=== PATIENT | male | born 1945 | race Caucasian/White ===

== ENCOUNTER → 2016-08-08 | Outpatient (CLI) | payer MEDICARE, OTHER | LOC: LAB.O 15:02 | PROVIDERS: ATTEND Nurse Practitioner Family | DX: R10.9 Unspecified abdominal pain (principal) ==

== ENCOUNTER → 2016-08-09 | Outpatient (CLI) | payer MEDICARE, OTHER ==
--- NOTE | 2016-08-09 10:34 | CT ---
EXAM DESCRIPTION: Abdomen and pelvis CT. CLINICAL HISTORY: Several days of abdominal pain COMPARISON: None. TECHNIQUE: A volumetric CT with oral and IV contrast was obtained during the portal venous and delayed phases. Images are displayed in multiplanar reconstructions. FINDINGS: There is fatty infiltration of the liver. The spleen is unremarkable. Bilateral adrenal glands are unremarkable. Bilateral kidneys enhance symmetrically. No evidence of obstruction or renal stone. There are a few cysts noted. There is a hyperdense hemorrhagic cyst noted along the robotics technician margin of the left mid pole of kidney. Its pre contrast density is 47, its post-contrast density is 56. This is compatible with a nonenhancing hemorrhagic cyst. Gallbladder is present. The pancreas is unremarkable. Small bowel is unremarkable. No inflammatory changes about the colon. No definitive diverticulosis. Small bowel is unremarkable IMPRESSION: Today's exam demonstrates no findings to account for patient's abdominal pain. No inflammatory changes within the abdomen or pelvis on today's study. There is fatty infiltration of the liver. Small bilateral renal cysts. There is a hemorrhagic intense left mid pole renal cyst. Electronically signed by: Scot Theodore MD 08/09/2016 10:33
== END ==
LOC: CT 08:22
PROVIDERS: ATTEND Nurse Practitioner Family
DX: R10.9 Unspecified abdominal pain (principal); N28.1 Cyst of kidney, acquired

== ENCOUNTER → 2016-08-23 | Outpatient (CLI) | payer MEDICARE, OTHER ==
--- NOTE | 2016-09-11 23:56 | CT ---
EXAM: CT head without contrast. INDICATION: Headache. TECHNIQUE: Contiguous axial CT images of the brain.Intravenous contrast: Absent.DLP 773 mGy-cm. COMPARISON: None. FINDINGS: Subcutaneous: Unremarkable. No acute intracranial hemorrhage. There is mild diffuse cerebral atrophy with mild periventricular deep white matter chronic microvascular changes.No midline shift.No mass effect. Ventricles: No hydrocephalus. Gonzalez-white differentiation preserved. Paranasal sinuses/mastoid air cells: Changes of a left mastoidectomy. Bones/orbits: Visualized portions are unremarkable. IMPRESSION: 1. No CT evidence of acute intracranial hemorrhage. Electronically signed by: Saul Persaud MD 08/24/2016 6:52 AM EVIDENCE CUSTODIAN
== END | disposition home or self-care (01) ==
LOC: RAD 14:32
PROVIDERS: ATTEND Nurse Practitioner Family
DX: R20.2 Paresthesia of skin (principal); I63.9 Cerebral infarction, unspecified

== ENCOUNTER 2016-10-07 10:02 | Emergency (ER) | payer MEDICARE, OTHER ==
[2016-10-07] MEDS ORDERED: SODIUM CHLORIDE 0.45% 1000ML 1,000 ML IVS ONE (10:21)
[2016-10-07 10:24] VITALS: TEMP 96.9
--- NOTE | 2016-10-07 10:28 | ED.PDOC ---
History of Present Illness - General Chief Complaint: Diabetic Complaint Stated Complaint: hyperglycemia Time Seen by Provider: 10/07/16 10:13 Source: patient, RN notes reviewed, Vital Signs reviewed, family Exam Limitations: no limitations - History of Present Illness Initial Comments: Patient c/o generalized GARCIA 5/10 and not being able to control hiss blood sugar. It was 225 this morning. Normally gets a GARCIA when is BS is low. He thinks the GARCIA is related to allergies when have been acting up over the past 3 days. No visual changes, + nausea, no weakness. Face is tingly which also frequently occurs when his blood sugar is off. + SOB, no chest pain. Has been alternating diarrhea and constipation off and on for a while. Timing/Duration: getting worse - over past 3 days Severity: moderate Improving Factors: nothing Worsening Factors: nothing Associated Symptoms: headaches, nausea/vomiting, shortness of breath Allergies/Adverse Reactions: Allergies Ibuprofen Allergy (Mild, Verified 06/16/14 13:41) Home Medications: Ambulatory Orders Finasteride 5 mg PO DAILY 01/21/14 Flunisolide (Nasal) [Flunisolide] 1 spray NA BID 01/21/14 Gabapentin [Neurontin] 1,200 mg PO TID 01/21/14 Glipizide 5 mg PO BIDAC 01/21/14 Metformin HCl 1,000 mg PO BIDAC 01/21/14 Metoprolol Tartrate 50 mg PO BID 01/21/14 Sertraline HCl 100 mg PO BID 01/21/14 Simvastatin [Zocor] 40 mg PO BEDTIME 01/21/14 Tamsulosin HCl 0.4 mg PO BEDTIME 01/21/14 Cetirizine HCl 10 mg PO DAILY 02/04/15 Review of Systems - Review of Systems Constitutional: States: no symptoms reported. Denies: chills, diaphoresis, fever, malaise, weakness EENTM: States: no symptoms reported. Denies: blurred vision, double vision Respiratory: States: short of breath. Denies: cough, orthopnea, stridor, wheezing Cardiology: States: no symptoms reported. Denies: chest pain, edema, palpitations, syncope Gastrointestinal/Abdominal: States: see HPI, constipation, diarrhea, nausea. Denies: abdominal pain, vomiting Genitourinary: States: no symptoms reported Musculoskeletal: States: no symptoms reported Skin: States: no symptoms reported, see HPI Neurological: States: headache, paresthesia, tingling - of whole face. Denies: numbness Endocrine: States: no symptoms reported Hematologic/Lymphatic: States: no symptoms reported Past Medical History (General) - Patient Medical History Hx Stroke: No Hx Cardiac Disorders: Yes - palpitations Hx Congestive Heart Failure: No Hx Hypertension: Yes Hx Diabetes: Yes Hx Gastroesophageal Reflux: Yes Hx Cancer: No Hx Hepatitis C: No Hx MRSA: No - Vaccination History Hx Tetanus, Diphtheria Vaccination: No Hx Influenza Vaccination: Yes Hx Pneumococcal Vaccination: No - Social History Hx Tobacco Use: Yes Hx Chewing Tobacco Use: No Hx Alcohol Use: No Hx Substance Use: No Hx Substance Use Treatment: No Hx Depression: No Hx Physical Abuse: No Hx Emotional Abuse: No Hx Suspected Abuse: No - Female History Patient : No Family Medical History - Family History Mother Family History: Unknown Living Status: Cause of : uterine cancer Father Living Status: Cause of : hardening of arteries Physical Exam - Physical Exam General Appearance: Alert, Comfortable, No apparent distress, Well Developed, Well Groomed, Well Hydrated, Well Nourished Eye Exam: bilateral normal Ears, Nose, Throat: hearing grossly normal, normal ENT inspection, normal pharynx Neck: non-tender, full range of motion, supple, normal inspection Respiratory: chest non-tender, lungs clear, normal breath sounds, no respiratory distress, no accessory muscle use Cardiovascular/Chest: normal peripheral pulses, regular rate, rhythm, no edema, no gallop, no JVD Peripheral Pulses: posterior tibialis,right: 2+, posterior tibialis,left: 2+ Gastrointestinal/Abdominal: normal bowel sounds, soft, no organomegaly, no pulsatile mass, tenderness - generalized, mild Extremity: normal range of motion, non-tender, normal inspection, no pedal edema , no calf tenderness 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 10/07/16 11:14 Patient told nurse he was feeling better. He told me the morphine made his head hurt more and he feels like his blood sugar is going up because his face is starting to feel funny again. Still having nausea. Would like to get his blood sugar rechecked so will order. 10/07/16 11:41 Patient continues to report his GARCIA is unchanged and that his face is puffing up. He is sure his blood sugar is going up despite me telling him is results here have been 162,197 & 173. Will give a small dose of IV insulin. Will also get EKG and repeat cardiac enzymes in 2 hours due to elevated CK-MB. 10/07/16 12:21 Patient still reporting he is not feeling well. He still has a GARCIA but feels it is allergy. He has not eaten or taken his medications today. Will give Solu- medrol 80mg IV, Diabetic meal and recheck cardiac enzymes in ~45 minutes. He is agreeable with plan. 10/07/16 13:16 HE reports he is feeling better after the steroids and eating. Will recheck cardiac enzymes and blood glucose. 10/07/16 14:05 Second set of cardiac enzymes still show elevated but improved CK-MB but troponin continues to be negative/normal. Will d/c home and have him follow up with PCP and Fashion Model. - EKG/XRAY/CT EKG: Sinus, no ST T wave changes Comments: Nl with rate [address] Ordered: Yes - Head: Normal Departure - Departure Clinical Impression: Diabetes type 2, uncontrolled, Elevated CPK Headache Qualifiers: Headache type: unspecified Headache chronicity pattern: acute headache Intractability: not intractable Qualifier Code: (R51) Headache Time of Disposition: 14:09 Disposition: Discharge to Home or Self Care Condition: Good Departure Forms: ED Discharge - Pt. Copy, Patient Portal Self Enrollment Instructions: Type 2 Diabetes, DI for Sinus Headache Diet: diabetic diet Activity: increase activity as tolerated Referrals: XAVI CASTILLO IV, FNP [Primary Care Provider] - 1-2 Weeks JULIANE PITTMAN MD [Consulting Staff] - 1-2 Weeks Home Medications: Ambulatory Orders Finasteride 5 mg PO DAILY 01/21/14 Flunisolide (Nasal) [Flunisolide] 1 spray NA BID 01/21/14 Gabapentin [Neurontin] 1,200 mg PO TID 01/21/14 Glipizide 5 mg PO BIDAC 01/21/14 Metformin HCl 1,000 mg PO BIDAC 01/21/14 Metoprolol Tartrate 50 mg PO BID 01/21/14 Sertraline HCl 100 mg PO BID 01/21/14 Simvastatin [Zocor] 40 mg PO BEDTIME 01/21/14 Tamsulosin HCl 0.4 mg PO BEDTIME 01/21/14 Cetirizine HCl 10 mg PO DAILY 02/04/15 Additional Instructions: Add OTC Sudafed to help with allergies/sinus headache.
[2016-10-07] MEDS ORDERED: MORPHINE SULFATE INJ 10 MG/ML VIAL IV ONE (10:32)
[2016-10-07] MEDS ORDERED: ONDANSETRON INJ 4 MG/2 ML VIAL IV ONE (10:32)
--- NOTE | 2016-10-07 11:07 | CT ---
EXAM DESCRIPTION: CT head without contrast. CLINICAL HISTORY: Generalized headache COMPARISON: CT head 08/23/2016 TECHNIQUE: Multiple axial images of the head without contrast. FINDINGS: There is no CT evidence of intracranial hemorrhage, mass effect, or acute cortical infarction. Mild generalized volume loss and mild supratentorial white matter hypodensities are present. There are no abnormal extra-axial fluid collections. Calcific plaque in the visualized arteries. There is no acute calvarial defect. Left mastoidectomy changes. The visualized paranasal sinuses are clear. IMPRESSION: 1. No CT evidence of an acute intracranial abnormality. If there is concern for an acute or subacute infarct, consider follow-up MRI. 2. Senescent changes. Electronically signed by: Te Osorio MD 10/07/2016 11:06 AM CDT
[2016-10-07] MEDS ORDERED: INSULIN, REG.(HUMAN) 100 U/ML VIAL IV ONE (11:40)
[2016-10-07] MEDS ORDERED: methylPREDNISolone SODIUM SUC 125 MG/2 ML VIAL IV ONE (12:20)
[2016-10-07 12:53] VITALS: O2SAT 95
[2016-10-07 13:25] VITALS: BP 122/49
== END 2016-10-07 14:20 | disposition home or self-care (01) ==
LOC: ER 10:02
DX: E11.65 Type 2 diabetes mellitus with hyperglycemia (principal); R51 Headache; Z87.891 Personal history of nicotine dependence; R00.2 Palpitations; K21.9 Gastro-esophageal reflux disease without esophagitis; Z79.899 Other long term (current) drug therapy; Z88.8 Allergy status to other drugs, medicaments and biological substances
CPT/HCPCS: 36415; 36416; 70450; 80053; 82550; 82553; 82948; 83735; 84484; 85025; 85610; 85730; 93005; J2270; J2405; J2930; J7799

== ENCOUNTER 2016-10-10 13:07 | Emergency (ER) | payer MEDICARE, OTHER ==
[2016-10-10 13:21] VITALS: TEMP 97.4
[2016-10-10] MEDS ORDERED: SODIUM CHLORIDE 0.9% 1000ML 1,000 ML IVS ONE (13:57)
--- NOTE | 2016-10-10 14:26 | ED.PDOC ---
History of Present Illness - General Chief Complaint: Diabetic Complaint Stated Complaint: blood sugars all over the place Time Seen by Provider: 10/10/16 13:18 Source: patient, RN notes reviewed, Vital Signs reviewed Exam Limitations: no limitations - History of Present Illness Initial Comments: Patient here with c/o of diarrhea, abd pain, nausea and anorexia for the past several days. He was seen here 3 days ago regarding his blood sugar with was normal at that time. HE reports he was recently treated for a UTI with Cipro and is not sure the infection has cleared. He would like that checked. Timing/Duration: other - 3 days, symptoms that brought him in on Monday are resolved, no more face tingling. Severity: moderate Improving Factors: nothing Worsening Factors: nothing Associated Symptoms: loss of appetite, nausea/vomiting Allergies/Adverse Reactions: Allergies Ibuprofen Allergy (Mild, Verified 10/10/16 13:17) Home Medications: Ambulatory Orders Finasteride 5 mg PO DAILY 01/21/14 Flunisolide (Nasal) [Flunisolide] 1 spray NA BID 01/21/14 Gabapentin [Neurontin] 1,200 mg PO TID 01/21/14 Glipizide 5 mg PO BIDAC 01/21/14 Metformin HCl 1,000 mg PO BIDAC 01/21/14 Metoprolol Tartrate 50 mg PO BID 01/21/14 Sertraline HCl 100 mg PO BID 01/21/14 Simvastatin [Zocor] 40 mg PO BEDTIME 01/21/14 Tamsulosin HCl 0.4 mg PO BEDTIME 01/21/14 Cetirizine HCl 10 mg PO DAILY 02/04/15 Clonazepam 1 mg PO BID #14 tab 10/10/16 Ondansetron [Zofran Odt] 4 mg PO Q6HRS PRN #20 tab 10/10/16 Review of Systems - Review of Systems Constitutional: States: malaise. Denies: chills, diaphoresis, fever EENTM: States: no symptoms reported Respiratory: States: no symptoms reported Cardiology: States: no symptoms reported Gastrointestinal/Abdominal: States: see HPI, abdominal pain, diarrhea, nausea Musculoskeletal: States: see HPI - Recent UTI Skin: States: no symptoms reported, see HPI Neurological: States: weakness Endocrine: States: no symptoms reported Hematologic/Lymphatic: States: no symptoms reported Past Medical History (General) - Patient Medical History Hx Seizures: No Hx Stroke: No Hx Dementia: No Hx Asthma: Yes Hx of COPD: No Hx Cardiac Disorders: Yes Hx Congestive Heart Failure: No Hx Pacemaker: No Hx Hypertension: Yes Hx Thyroid Disease: No Hx Diabetes: No Hx Gastroesophageal Reflux: Yes Hx Renal Disease: No Hx Cancer: No Hx of HIV: No Hx Hepatitis C: No Hx MRSA: No - Vaccination History Hx Tetanus, Diphtheria Vaccination: Yes Hx Influenza Vaccination: Yes Hx Pneumococcal Vaccination: Yes Immunizations Up to Date: Yes - Social History Hx Tobacco Use: No Hx Chewing Tobacco Use: No Hx Alcohol Use: No Hx Substance Use: No Hx Substance Use Treatment: No Hx Depression: No Feels Threatened In Home Enviroment: No Feels Threatened In a Relationship: No Hx Physical Abuse: No Hx Emotional Abuse: No Hx Suspected Abuse: No - Female History Patient : No Family Medical History - Family History Mother Family History: Unknown Living Status: Cause of : uterine cancer Father Living Status: Cause of : hardening of arteries Physical Exam - Physical Exam General Appearance: Alert, Comfortable, No apparent distress, Obese, Well Developed, Well Groomed, Well Hydrated, Well Nourished Neck: non-tender, full range of motion, supple, normal inspection Respiratory: chest non-tender, lungs clear, normal breath sounds, no respiratory distress, no accessory muscle use Cardiovascular/Chest: normal peripheral pulses, regular rate, rhythm, no edema, no gallop, no JVD, no murmur Peripheral Pulses: posterior tibialis,right: 1+, posterior tibialis,left: 1+ Gastrointestinal/Abdominal: normal bowel sounds, soft, guarding - Epigastric and RUQ, tenderness - RUQ/epigastric Extremity: normal range of motion, non-tender, normal inspection Neurologic: no motor/sensory deficits, alert, normal mood/affect, oriented x 3 Skin Exam: normal color, warm/dry Lymphatic: no adenopathy Progress - Progress Progress: 10/10/16 15:01 Labs so far are normal. Awaiting urine sample. If urine is normal will get CT scan of Abd/pelvis 10/10/16 16:59 Discussed normal results with patient. He does now report that someone took his Clonazepam about 2 weeks ago along with his pain medications. He is wondering if this could be what is making him feel so bad. Advised that is possible. Will give 1 week supply of Clonazepam. - EKG/XRAY/CT CT Ordered: Yes - Abd/Pelvis: No acute process, unchanged from 07/2016 CT Interpretation Call Back: No Departure - Departure Clinical Impression: Diarrhea Abdominal pain Qualifiers: Abdominal location: generalized Qualifier Code: (R10.84) Generalized abdominal pain Time of Disposition: 17:02 Disposition: Discharge to Home or Self Care Condition: Good Departure Forms: ED Discharge - Pt. Copy, Patient Portal Self Enrollment Instructions: Diarrhea, DI for Acute Abdomen Diet: resume usual diet Activity: increase activity as tolerated Referrals: XAVI CASTILLO IV TALENT ACQUISITION MANAGER [Primary Care Provider] - 1-5 Days Prescriptions: Ondansetron [Zofran Odt] 4 mg PO Q6HRS PRN #20 tab PRN Reason: Nausea/Vomiting Clonazepam 1 mg PO BID #14 tab Home Medications: Ambulatory Orders Finasteride 5 mg PO DAILY 01/21/14 Flunisolide (Nasal) [Flunisolide] 1 spray NA BID 01/21/14 Gabapentin [Neurontin] 1,200 mg PO TID 01/21/14 Glipizide 5 mg PO BIDAC 01/21/14 Metformin HCl 1,000 mg PO BIDAC 01/21/14 Metoprolol Tartrate 50 mg PO BID 01/21/14 Sertraline HCl 100 mg PO BID 01/21/14 Simvastatin [Zocor] 40 mg PO BEDTIME 01/21/14 Tamsulosin HCl 0.4 mg PO BEDTIME 01/21/14 Cetirizine HCl 10 mg PO DAILY 02/04/15 Clonazepam 1 mg PO BID #14 tab 10/10/16 Ondansetron [Zofran Odt] 4 mg PO Q6HRS PRN #20 tab 10/10/16
--- NOTE | 2016-10-10 16:53 | CT ---
EXAM DESCRIPTION: Abdomen and pelvis CT. CLINICAL HISTORY: Several days of abdominal pain COMPARISON: None. TECHNIQUE: A Volumetric CT with IV contrast was obtained. Images are displayed in multiplanar reconstructions. FINDINGS: Fatty infiltration of the nonenlarged liver again noted. The spleen is unremarkable. Bilateral adrenal glands are unremarkable. Bilateral kidneys enhance symmetrically. No evidence of obstruction or renal stone. There are a few cysts noted. Gallbladder is present. The pancreas is unremarkable. Small bowel is unremarkable. No inflammatory changes about the colon. No definitive diverticulosis. Small bowel is unremarkable Bilateral fat-containing inguinal hernias without associated fat stranding. IMPRESSION: Today's exam is essentially stable when compared to July 2016. No definitive findings to account for patient's abdominal pain. There remains degenerative change of the lumbar spine, atherosclerosis of a nonaneurysmal abdominal aorta and a few bilateral renal cysts. 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 Electronically signed by: Scot Theodore MD 10/10/2016 4:52 PM CDT
[2016-10-10 17:15] VITALS: BP 160/76; O2SAT 96
== END 2016-10-10 17:17 | disposition home or self-care (01) ==
LOC: ER 13:07
DX: R19.7 Diarrhea, unspecified (principal); R10.84 Generalized abdominal pain; J45.909 Unspecified asthma, uncomplicated; I10 Essential (primary) hypertension; K21.9 Gastro-esophageal reflux disease without esophagitis; Z79.899 Other long term (current) drug therapy
CPT/HCPCS: 36415; 36416; 74177; 80053; 81001; 82150; 82948; 83690; 85025; J7030

== ENCOUNTER → 2016-10-19 | Outpatient (CLI) | payer MEDICARE, OTHER | END | disposition home or self-care (01) | LOC: GMAM 10:15 | PROVIDERS: ATTEND Family Medicine | DX: Z12.5 Encounter for screening for malignant neoplasm of prostate (principal); R97.20 Elevated prostate specific antigen [PSA]; I10 Essential (primary) hypertension; E11.9 Type 2 diabetes mellitus without complications ==

== ENCOUNTER → 2016-11-15 | Outpatient (CLI) | payer MEDICARE, OTHER | LOC: SL 21:30 | PROVIDERS: ATTEND Family Medicine | DX: G47.33 Obstructive sleep apnea (adult) (pediatric) (principal); G47.00 Insomnia, unspecified; R53.82 Chronic fatigue, unspecified; R06.83 Snoring; I25.89 Other forms of chronic ischemic heart disease; J98.8 Other specified respiratory disorders; I50.9 Heart failure, unspecified ==

== ENCOUNTER 2017-02-09 15:10 | Emergency (ER) | payer MEDICARE, OTHER ==
--- NOTE | 2017-02-09 15:28 | ED.PDOC ---
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 Denies weakness,slurred speech,chest pain,headaches. Timing/Prior Episodes: remote history Precipitating Factors: lightheadedness Context: standing Loss of Consciousness: unsure Current Symptoms: back to normal Allergies/Adverse Reactions: Allergies Ibuprofen Allergy (Mild, Verified 10/10/16 13:17) Home Medications: Ambulatory Orders RX: Finasteride 5 mg PO DAILY 01/21/14 RX: Flunisolide (Nasal) [Flunisolide] 1 spray NA BID 01/21/14 RX: Gabapentin [Neurontin] 1,200 mg PO TID 01/21/14 RX: Glipizide 5 mg PO BIDAC 01/21/14 RX: Metformin HCl 1,000 mg PO BIDAC 01/21/14 RX: Metoprolol Tartrate 50 mg PO BID 01/21/14 RX: Sertraline HCl 100 mg PO BID 01/21/14 RX: Simvastatin [Zocor] 40 mg PO BEDTIME 01/21/14 RX: Tamsulosin HCl 0.4 mg PO BEDTIME 01/21/14 RX: Cetirizine HCl 10 mg PO DAILY 02/04/15 Ondansetron [Zofran Odt] 4 mg PO Q6HRS PRN #20 tab 10/10/16 RX: Clonazepam 1 mg PO BID #14 tab 10/10/16 Sulfa/Trimeth 800/160 (Ds) Tab [Bactrim DS Tab] 1 ea PO BID #20 tab 02/09/17 Review of Systems - Review of Systems Constitutional: States: no symptoms reported EENTM: States: see HPI, other - menieres disease Respiratory: States: no symptoms reported Cardiology: States: no symptoms reported Gastrointestinal/Abdominal: States: no symptoms reported Genitourinary: States: other - urinary retention self cath Musculoskeletal: States: no symptoms reported Skin: States: no symptoms reported Neurological: States: see HPI Endocrine: States: no symptoms reported Hematologic/Lymphatic: States: no symptoms reported Past Medical History (General) - Patient Medical History Hx Seizures: No Hx Stroke: No Hx Dementia: No Hx Asthma: Yes Hx of COPD: No Hx Cardiac Disorders: Yes Hx Congestive Heart Failure: No Hx Pacemaker: No Hx Hypertension: Yes Hx Thyroid Disease: No Hx Diabetes: Yes Hx Gastroesophageal Reflux: Yes Hx Renal Disease: No Hx Cancer: No Hx of HIV: No Hx Hepatitis C: No Hx MRSA: No Hx Other PMH: Yes - menieres,prostate,spondylolisthesis/spondylolysis Surgical History: other - pain pump - Vaccination History Hx Tetanus, Diphtheria Vaccination: Yes Hx Influenza Vaccination: Yes Hx Pneumococcal Vaccination: Yes - Social History Hx Tobacco Use: No Hx Chewing Tobacco Use: No Hx Alcohol Use: No Hx Substance Use: No Hx Substance Use Treatment: No Hx Depression: No Hx Physical Abuse: No Hx Emotional Abuse: No Hx Suspected Abuse: No - Activities of Daily Living Patient Lives Alone: No - grandchild Grooming Ability: Independent Eating (Feeding) Ability: Independent Toileting Ability: Independent - Female History Patient : No Physical Exam - Physical Exam General Appearance: Alert, No apparent distress, Well Hydrated, Well Nourished, Other - speech fluent Eyes, Ears, Nose, Throat Exam: PERRL/EOMI, normal ENT inspection, TMs normal, pharynx normal Neck: non-tender, full range of motion, supple Cardiovascular/Respiratory: regular rate, rhythm, no M/R/G, normal peripheral pulses, no JVD Gastrointestinal/Abdominal: normal bowel sounds, soft, no organomegaly Back Exam: normal inspection, no CVA tenderness, no vertebral tenderness Extremity: normal range of motion, non-tender, normal inspection Mental Status: alert, oriented x 3 cutter wet machine Exam: normal hearing, normal speech, PERRL Coordination/Gait: normal finger to nose, normal gait, negative Romberg's sign Motor/Sensory: no motor deficit, no sensory deficit, no pronator drift Skin Exam: normal color, warm/dry Lymphatic: no adenopathy Progress - Progress Progress: 02/09/17 16:31 Vital Signs - 8 hr 02/09/17 02/09/17 15:20 16:18 Temperature 97.6 F Pulse Rate [ 61 57 L LEFT BRACHIAL] Respiratory 20 16 Rate Blood Pressure 140/65 110/56 [LEFT BRACHIAL] O2 Sat by Pulse 97 96 Oximetry - EKG/XRAY/CT EKG: Sinus, no ST T wave changes Comments: heart rate 58 XRAY: chest - tortous aorta,cardiomegaly CT Ordered: Yes - no acute intracranial abnormality Departure - Departure Clinical Impression: Syncope Qualifiers: Syncope type: heat syncope Encounter type: initial encounter Qualified Code(s) : T67.1XXA - Heat syncope, initial encounter Urinary tract infection Qualifiers: Urinary tract infection type: site unspecified Hematuria presence: without hematuria Qualified Code(s): N39.0 - Urinary tract infection, site not specified Time of Disposition: 18:59 Disposition: Discharge to Home or Self Care Condition: Fair Departure Forms: ED Discharge - Pt. Copy, Patient Portal Self Enrollment Instructions: DI for Syncope in Adults (Fainting) Referrals: XAVI CASTILLO IV GEAR REPAIR SUPERVISOR [Primary Care Provider] - 1-2 Weeks Prescriptions: Sulfa/Trimeth 800/160 (Ds) Tab [Bactrim DS Tab] 1 ea PO BID #20 tab Home Medications: Ambulatory Orders RX: Finasteride 5 mg PO DAILY 01/21/14 RX: Flunisolide (Nasal) [Flunisolide] 1 spray NA BID 01/21/14 RX: Gabapentin [Neurontin] 1,200 mg PO TID 01/21/14 RX: Glipizide 5 mg PO BIDAC 01/21/14 RX: Metformin HCl 1,000 mg PO BIDAC 01/21/14 RX: Metoprolol Tartrate 50 mg PO BID 01/21/14 RX: Sertraline HCl 100 mg PO BID 01/21/14 RX: Simvastatin [Zocor] 40 mg PO BEDTIME 01/21/14 RX: Tamsulosin HCl 0.4 mg PO BEDTIME 01/21/14 RX: Cetirizine HCl 10 mg PO DAILY 02/04/15 Ondansetron [Zofran Odt] 4 mg PO Q6HRS PRN #20 tab 10/10/16 RX: Clonazepam 1 mg PO BID #14 tab 10/10/16 Sulfa/Trimeth 800/160 (Ds) Tab [Bactrim DS Tab] 1 ea PO BID #20 tab 02/09/17 Additional Instructions: RETURN TO EMERGENCY ROOM NEEDED Follow up with primary md 02/13/2017
[2017-02-09 15:34] VITALS: TEMP 97.6
[2017-02-09] MEDS ORDERED: SODIUM CHLORIDE 0.9% 500ML 500 ML IVS ONE (15:44)
--- NOTE | 2017-02-09 15:51 | RAD ---
EXAM DESCRIPTION: Chest,1 View CLINICAL HISTORY: 72 years Male, syncope COMPARISON: 02/14/2014 IMPRESSION: The heart is enlarged, without failure. The thoracic aorta is tortuous. Left basilar mild subsegmental atelectasis or scarring. No confluent airspace consolidation, pleural effusion, or pneumothorax. No acute osseous abnormality. Electronically signed by: Te Osorio MD 02/09/2017 3:50 PM CDT
--- NOTE | 2017-02-09 15:59 | CT ---
EXAM DESCRIPTION: CT-Head. CT head without contrast. CLINICAL HISTORY: syncope COMPARISON: 10/07/2016 TECHNIQUE: Multiple axial images of the head without contrast. This exam was performed according to our departmental dose-optimization program, which includes automated exposure control, adjustment of the mA and/or kV according to patient size and/or use of iterative reconstruction technique. FINDINGS: There is no CT evidence of intracranial hemorrhage, mass effect, or large territory infarction. Moderate generalized volume loss is present. Mild to moderate patchy supratentorial white matter hypodensities. Mineralization in both basal ganglia. There are no abnormal extra-axial fluid collections. Calcific plaque in the visualized arteries. There is no acute calvarial defect. Prior left mastoidectomy again demonstrated. Mild mucosal thickening in the ethmoid sinuses. The right mastoid air cells and remainder of the paranasal sinuses are clear. IMPRESSION: 1. No CT evidence of an acute intracranial abnormality. If there is concern for an acute or subacute infarct, consider follow-up MRI. 2. Senescent changes. Electronically signed by: Te Osorio MD 02/09/2017 3:57 PM CDT
[2017-02-09 16:29] VITALS: O2SAT 96
[2017-02-09] MEDS ORDERED: cefTRIAXone SODIUM 1 GM in SODIUM CHL 0.9% 50ML MIN-BAG+ 50 ML IVPB ONE (18:06)
[2017-02-09] MEDS ORDERED: SODIUM CHL 0.9% 50ML MIN-BAG+ 50 ML IVPB ONE (18:48)
[2017-02-09] MEDS ORDERED: cefTRIAXone SODIUM 1 GM VIAL ONE (18:48)
[2017-02-09 19:17] VITALS: BP 150/106
== END 2017-02-09 19:45 | disposition home or self-care (01) ==
LOC: ER 15:10
DX: N39.0 Urinary tract infection, site not specified (principal); T67.1XXA Heat syncope, initial encounter; I10 Essential (primary) hypertension; E11.9 Type 2 diabetes mellitus without complications; K21.9 Gastro-esophageal reflux disease without esophagitis; Z79.899 Other long term (current) drug therapy; Z88.6 Allergy status to analgesic agent; X30.XXXA Exposure to excessive natural heat, initial encounter; Y92.79 Other farm location as the place of occurrence of the external cause
CPT/HCPCS: 36415; 36416; 70450; 71010; 80048; 80076; 80307; 81001; 82550; 82553; 82948; 84484; 85025; 85379; 85610; 85730; 87086; 93005; J0696; J7040; J7050

== ENCOUNTER → 2017-02-21 | Outpatient (CLI) | payer MEDICARE, OTHER | END | disposition home or self-care (01) | LOC: GMAM 11:14 | PROVIDERS: ATTEND Family Medicine | DX: M25.50 Pain in unspecified joint (principal); I10 Essential (primary) hypertension; R53.83 Other fatigue ==

== ENCOUNTER → 2017-04-18 | Outpatient (CLI) | payer MEDICARE, OTHER | END | disposition home or self-care (01) | LOC: GMAM 16:51 | PROVIDERS: ATTEND Family Medicine | DX: R30.0 Dysuria (principal) ==

== ENCOUNTER 2017-05-10 16:59 | Emergency (ER) | payer MEDICARE, OTHER ==
[2017-05-10 17:18] VITALS: TEMP 97.8
[2017-05-10] MEDS ORDERED: TAMSULOSIN 0.4 MG CAP PO ONE (17:45)
--- NOTE | 2017-05-10 19:14 | ED.PDOC ---
History of Present Illness - General Chief Complaint: Problem Stated Complaint: pain with urination Time Seen by Provider: 05/10/17 17:44 Source: patient Exam Limitations: no limitations - History of Present Illness Initial Comments: Dani Fletcher 72 y/o male stated that he had painful urination since yesterday and got worse today. No fever ,no chills.Stated self cath himself using new disposable cath whenever he does it. Timing/Duration: yesterday Quality: burning, intermittent Radiation: suprapubic Activites at Onset: none Prior abdominal problems: similar symptoms Sexual intercourse history: not active Worsening Factors: other - urination Associated Symptoms: urinary frequency Allergies/Adverse Reactions: Allergies Ibuprofen Allergy (Mild, Verified 05/10/17 17:18) Home Medications: Ambulatory Orders Finasteride 5 mg PO DAILY 01/21/14 Flunisolide (Nasal) [Flunisolide] 1 spray NA BID 01/21/14 Gabapentin [Neurontin] 1,200 mg PO TID 01/21/14 Glipizide 5 mg PO BIDAC 01/21/14 Metformin HCl 1,000 mg PO BIDAC 01/21/14 Metoprolol Tartrate 50 mg PO BID 01/21/14 Sertraline HCl 100 mg PO BID 01/21/14 Simvastatin [Zocor] 40 mg PO BEDTIME 01/21/14 Tamsulosin HCl 0.4 mg PO BEDTIME 01/21/14 Cetirizine HCl 10 mg PO DAILY 02/04/15 Clonazepam 1 mg PO BID #14 tab 10/10/16 Ondansetron [Zofran Odt] 4 mg PO Q6HRS PRN #20 tab 10/10/16 Sulfa/Trimeth 800/160 (Ds) Tab [Bactrim DS Tab] 1 ea PO BID #20 tab 02/09/17 Nitrofurantoin Monohydrate Mac [Macrobid] 100 mg PO BID #20 cap 05/10/17 Review of Systems - Review of Systems Constitutional: States: no symptoms reported EENTM: States: no symptoms reported Respiratory: States: no symptoms reported Cardiology: States: no symptoms reported Genitourinary: States: see HPI Musculoskeletal: States: no symptoms reported Past Medical History (General) - Patient Medical History Hx Seizures: No Hx Stroke: No Hx Dementia: No Hx Asthma: Yes Hx of COPD: No Hx Cardiac Disorders: Yes Hx Congestive Heart Failure: No Hx Pacemaker: No Hx Hypertension: Yes Hx Thyroid Disease: No Hx Diabetes: Yes Hx Gastroesophageal Reflux: Yes Hx Renal Disease: No Hx Cancer: No Hx of HIV: No Hx Hepatitis C: No Hx MRSA: No Hx Other PMH: Yes - chronic back pain,Menieres,prostate Surgical History: no surgical history, other - pain pump - Vaccination History Hx Tetanus, Diphtheria Vaccination: Yes Hx Influenza Vaccination: No Hx Pneumococcal Vaccination: Yes - Social History Hx Tobacco Use: No Hx Chewing Tobacco Use: No Hx Alcohol Use: No Hx Substance Use: No Hx Substance Use Treatment: No Hx Depression: No Hx Physical Abuse: No Hx Emotional Abuse: No Hx Suspected Abuse: No - Female History Patient : No Family Medical History - Family History Mother Family History: Unknown Living Status: Cause of : uterine cancer Father Living Status: Cause of : hardening of arteries Physical Exam - Physical Exam General Appearance: Alert, No apparent distress Eyes, Ears, Nose, Throat Exam: PERRL/EOMI, normal ENT inspection Neck: full range of motion, supple Cardiovascular/Respiratory: regular rate, rhythm, normal peripheral pulses, normal breath sounds Gastrointestinal/Abdominal: non tender, soft, no organomegaly Rectal Exam: normal rectal tone Male Genital Exam: normal prostate - non tender Back Exam: no vertebral tenderness Extremity: no pedal edema, no calf tenderness Progress - Progress Progress: 05/10/17 19:33 Laboratory Tests 05/10/17 05/10/17 05/10/17 17:55 17:55 17:55 WBC 8.0 RBC 4.32 L Hgb 11.4 L Hct 35.3 L MCV 81.6 MCH 26.3 L MCHC 32.4 L RDW 15.7 H Plt Count 206 MPV 7.7 Absolute Neuts (auto) 4.20 Absolute Lymphs (auto) 2.80 Absolute Monos (auto) 0.90 H Absolute Eos (auto) 0.10 Absolute Basos (auto) 0.00 Neutrophils % 52.4 Lymphocytes % 35.0 Monocytes % 10.7 H Eosinophils % 1.7 Basophils % 0.2 Sodium 136 Potassium 4.2 Chloride 100 L Carbon Dioxide 30 Anion Gap 10.2 L BUN 14 Creatinine 0.71 BUN/Creatinine Ratio 19.7 Random Glucose 113 H Serum Osmolality 273.2 L Calcium 9.1 Total Bilirubin 0.4 AST 24 ALT 21 Alkaline Phosphatase 69 Serum Total Protein 6.5 Albumin 3.8 Globulin 2.7 Albumin/Globulin Ratio 1.4 Urine Color Yellow Urine Appearance Sl cloudy Urine pH 6.0 Ur Specific [place] >= 1.030 Urine Protein >=300 H Urine Glucose (UA) Negative Urine Ketones Negative Urine Blood Large H Urine Nitrite Negative Urine Bilirubin Negative Urine Urobilinogen 0.2 Ur Leukocyte Esterase Trace H Urine RBC Tntc H Urine WBC 10-20 H Ur Epithelial Cells 0 Urine Bacteria 1+ Last Vital Signs Temp 97.8 F 05/10/17 17:07 Pulse 48 L 05/10/17 17:07 Resp 20 05/10/17 17:07 BP 147/70 05/10/17 17:07 Pulse Ox 97 05/10/17 17:07 Departure - Departure Clinical Impression: Urinary tract infection Qualifiers: Urinary tract infection type: site unspecified Hematuria presence: with hematuria Qualified Code(s): N39.0 - Urinary tract infection, site not specified Time of Disposition: 19:36 Disposition: Discharge to Home or Self Care Condition: Fair Departure Forms: ED Discharge - Pt. Copy, Patient Portal Self Enrollment Instructions: Bladder Infections Happen in Men Too, Bladder Infection ( Alternative Therapy) Referrals: Cesar Edwards MD [Primary Care Provider] - 1-2 Weeks Prescriptions: Nitrofurantoin Monohydrate Mac [Macrobid] 100 mg PO BID #20 cap Home Medications: Ambulatory Orders Finasteride 5 mg PO DAILY 01/21/14 Flunisolide (Nasal) [Flunisolide] 1 spray NA BID 01/21/14 Gabapentin [Neurontin] 1,200 mg PO TID 01/21/14 Glipizide 5 mg PO BIDAC 01/21/14 Metformin HCl 1,000 mg PO BIDAC 01/21/14 Metoprolol Tartrate 50 mg PO BID 01/21/14 Sertraline HCl 100 mg PO BID 01/21/14 Simvastatin [Zocor] 40 mg PO BEDTIME 01/21/14 Tamsulosin HCl 0.4 mg PO BEDTIME 01/21/14 Cetirizine HCl 10 mg PO DAILY 02/04/15 Clonazepam 1 mg PO BID #14 tab 10/10/16 Ondansetron [Zofran Odt] 4 mg PO Q6HRS PRN #20 tab 10/10/16 Sulfa/Trimeth 800/160 (Ds) Tab [Bactrim DS Tab] 1 ea PO BID #20 tab 02/09/17 Nitrofurantoin Monohydrate Mac [Macrobid] 100 mg PO BID #20 cap 05/10/17 Additional Instructions: Need to follow up with primary md in am call for appointment;Return to emergency room as needed
[2017-05-10] MEDS ORDERED: levoFLOXacin 500 MG TAB PO ONE (19:34)
[2017-05-10 19:48] VITALS: BP 135/74; O2SAT 98
== END 2017-05-10 19:48 | disposition home or self-care (01) ==
LOC: ER 16:59
DX: N39.0 Urinary tract infection, site not specified (principal); I10 Essential (primary) hypertension; E11.9 Type 2 diabetes mellitus without complications; G89.29 Other chronic pain; M54.9 Dorsalgia, unspecified; Z79.899 Other long term (current) drug therapy

== ENCOUNTER → 2017-05-17 | Outpatient (CLI) | payer MEDICARE, OTHER | LOC: GMAM 16:50 | PROVIDERS: ATTEND Family Medicine | DX: N40.1 Benign prostatic hyperplasia with lower urinary tract symptoms (principal) ==

== ENCOUNTER 2017-05-18 21:32 | Inpatient (IN) | payer MEDICARE, OTHER ==
--- NOTE | 2017-05-18 21:34 | HP ---
SUPERVISING PHYSICIAN: Solomon Merino MD CHIEF COMPLAINT: Dysuria. HISTORY OF PRESENT ILLNESS: This is a 72-year-old male patient who saw Dr. Edwards a week or so ago and had a urinary tract infection. He initially was treated with Cipro and when his cultures came back, it was enterococcus faecalis. It was resistant to Cipro, so that was discontinued and Augmentin was ordered. He continued complaints of dysuria and did not get his Augmentin filled. He does have a significant history of chronic urinary retention and he does void a small amount each day, but he does have to straight cath himself three times a day. Dr. Edwards called me for admission for urinary tract infection failed outpatient treatment. PAST MEDICAL HISTORY: 1. Chronic urinary retention. 2. Anxiety with depression. 3. Benign prostatic hypertrophy. 4. Coronary artery disease. 5. Generalized osteoarthritis. 6. Hyperlipidemia. 7. Hypertension. 8. Obstructive sleep apnea. 9. Type 2 diabetes mellitus. 10. Myocardial infarction times two. PAST SURGICAL HISTORY: 1. Transurethral resection of the prostate in 2011. 2. Cardiac cath in 2013. 3. Insertion of pain management pump by Dr. Suarez in 2016. OUTPATIENT MEDICATIONS: Per the EMR and awaiting verification. ALLERGIES: IBUPROFEN. SOCIAL HISTORY: He is retired. He is . He has three children. He has a past history of cigarette smoking and quit in 1996. He denies any ETOH. REVIEW OF SYSTEMS: GENERAL: Positive for fatigue. Negative for fever or weight changes. HEENT: Negative for sinus symptoms, ear pain, vision changes or sore throat. RESPIRATORY: Negative for wheezing, coughing or shortness of breath. CARDIAC: Negative for chest pain, palpitations or tachycardia. GASTROINTESTINAL: Negative for nausea, vomiting, diarrhea, constipation or abdominal pain. GENITOURINARY: Positive for hematuria, dysuria, polyuria and nocturia although he only voids a small amount each time and he has to straight cath himself three times daily. SKIN: Negative for lesions or rashes. NEUROLOGIC: Negative for headache, dizziness or seizures. PHYSICAL EXAMINATION: VITAL SIGNS: Afebrile. Heart rate 51. Blood pressure 138/72. Respiratory rate 20. O2 saturation 97% on room air. GENERAL: This is a 72-year-old male patient who is sitting in his hospital bed. He is in no acute distress. HEENT: Normocephalic, atraumatic. Pupils are equal and reactive. Oropharynx is clear. NECK: Supple without mass. RESPIRATORY: Essentially clear to auscultation bilaterally. CHEST: There is equal rise and fall of the chest with inspiration and expiration. CARDIOVASCULAR: Regular rate and rhythm. GASTROINTESTINAL: Mild suprapubic abdominal pain. There is no rebound tenderness. It is soft, rounded. Bowel sounds are positive. EXTREMITIES: No cyanosis, clubbing or edema. NEUROLOGIC: Awake, alert and oriented times three. LABORATORY: WBCs 8.8, hemoglobin 10.8, hematocrit 33.1. Chemistries are still pending. Blood and urine cultures are pending. ASSESSMENT: 1. Urinary tract infection with failed outpatient treatment. 2. Coronary artery disease. 3. Diabetes mellitus, type 2. 4. Hypertension. 5. Hyperlipidemia. 6. Anxiety with depression. 7. Benign prostatic hypertrophy. 8. Chronic urinary retention. The patient straight caths three times daily. PLAN: We will admit the patient to the hospital. I have ordered initial labs as well as labs for in the morning. I have done a culture on his blood and urine. I have ordered Protonix for ulcer prophylaxis and Lovenox for DVT prophylaxis. I have also ordered sliding insulin with Accuchecks. I will start him on Zyvox as his previous culture showed some sensitivity to that. We need to do strong patient teaching to make sure his straight caths are done properly. We will continue to monitor the patient closely and follow as needed. Dr. Merino is the collaborating physician and available for consultation. #[id number] [facility]
[2017-05-18] MEDS ORDERED: SODIUM CHLORIDE 0.9% (FLUSH) 10 ML SYG IV PRN (22:15)
[2017-05-18] MEDS ORDERED: LINEZOLID IV 600 MG in PREMIX BAG 1 BAG IVPB ONE (22:24)
[2017-05-18] MEDS ORDERED: GLUCAGON INJ 1 MG VIAL SUBCU PRN (22:28)
[2017-05-18] MEDS ORDERED: DEXTROSE 50% 25 GM/50 ML SYG IV PRN (22:28)
[2017-05-18] MEDS ORDERED: IV SET AND CAP CHANGE INJ INJ SCH (22:30)
[2017-05-18] MEDS ORDERED: PANTOPRAZOLE SODIUM IV 40 MG VIAL IV SCH (22:30)
[2017-05-18] MEDS ORDERED: LINEZOLID IV 300 ML IVPB ONE (22:43)
[2017-05-19] MEDS: INSULIN LISPRO 100 UNITS/ML PEN SUBCU SCH ×4 (07:40→21:12)
[2017-05-19] MEDS: SODIUM CHLORIDE 0.9% (FLUSH) 10 ML SYG IV SCH ×2 (08:32→21:12)
[2017-05-19] MEDS ORDERED: NON-FORMULARY MEDICATION 1 EA MIS (Sertraline Hcl [Sertraline Hcl] 100 MG) PO SCH (10:00)
[2017-05-19] MEDS ORDERED: NON-FORMULARY MEDICATION 1 EA MIS (Sitagliptin-Metformin Hcl [Janumet 50-1000 Mg] 1 TAB) PO SCH (10:00)
[2017-05-19] MEDS ORDERED: POTASSIUM CHLORIDE 10 MEQ TAB PO SCH (10:00)
[2017-05-19] MEDS ORDERED: METOPROLOL TARTRATE 25 MG TAB ONE (10:26)
[2017-05-19] MEDS ORDERED: CETIRIZINE HCL 10 MG TAB PO ONE (10:26)
[2017-05-19] MEDS ORDERED: SERTRALINE HCL 50 MG TAB ONE (10:27)
[2017-05-19] MEDS: GABAPENTIN 400 MG CAP PO SCH ×3 (10:32→21:11)
[2017-05-19] MEDS: FINASTERIDE 5 MG TAB PO SCH (10:32)
[2017-05-19] MEDS: CETIRIZINE HCL 10 MG TAB PO SCH (10:45)
[2017-05-19] MEDS: metFORMIN HCL 500 MG TAB PO SCH ×3 (10:46→17:00)
[2017-05-19] MEDS: METOPROLOL TARTRATE 50 MG TAB PO SCH ×2 (10:53→17:03)
[2017-05-19] MEDS: FLUTICASONE PROP 0.05% NASAL 16 GM BTTL BNAS SCH (10:54)
[2017-05-19] MEDS ORDERED: LINEZOLID IV 300 ML IVPB ONE ×2 (11:00→20:27)
[2017-05-19] MEDS: SITagliptin 50 MG TAB PO SCH (11:12)
[2017-05-19] MEDS: LINEZOLID IV 600 MG in PREMIX BAG 1 BAG IVPB SCH ×2 (11:12→23:24)
--- NOTE | 2017-05-19 19:47 | PN ---
DATE: 05/19/17 SUPERVISING PHYSICIAN: Solomon Merino M.D. SUBJECTIVE: The patient is lying in his hospital bed. He continues complaints of lower abdominal pain but he has no complaints of dysuria as he is very glad that he has a catheter in place. He denies any chest pain or shortness of breath but does not have much of an appetite at this time. We also discussed self catheterization and the patient does throw away catheters after each use. OBJECTIVE: VITAL SIGNS: He is afebrile, heart rate 53, blood pressure 122/51, respiratory rate 18, O2 sat is 96%. RESPIRATORY: Essentially clear to auscultation bilaterally. CARDIAC: Regular rate and rhythm. At times he is bradycardic. GASTROINTESTINAL: Abdomen is soft, nondistended. Mildly tender in the suprapubic area but less tender than yesterday. Bowel sounds are positive. There is a Napier catheter draining slightly cloudy urine. EXTREMITIES: No cyanosis, clubbing or edema. NEUROLOGIC: He is awake, alert and oriented times three. LABORATORY: Urine shows a trace of leukocyte esterase with 3 to 5 WBCs. Electrolytes are basically within normal limits with the exception of his glucose is high at 112 and hemoglobin is low at 10.8 with a low hematocrit of 33.1 and white count is 8.8. Preliminary blood cultures are negative today and his urine culture is pending. All other labs and films have been reviewed via the EMR. ASSESSMENT: 1. Urinary tract infection with failed outpatient treatment. Previous urine culture of about 10 days ago showed Enterococcus faecalis. 2. Coronary artery disease. 3. Diabetes mellitus type 2. 4. Hypertension. 5. Hyperlipidemia. 6. Anxiety with depression. 7. Benign prostatic hypertrophy. 8. Chronic urinary retention. The patient straight caths 3 times daily. PLAN: We will continue present supportive care. We will keep his Napier catheter as long as he is in the hospital due to his chronic urinary retention, but prior to his discharge we will attempt bladder training. I have also instructed the nurses to reinforce proper self catheterization technique to make sure that we can decrease the risk of urinary tract infections. We will continue him on his Zyvox and wait for urine cultures with the sensitivities. I have encouraged good pulmonary hygiene as well as frequent ambulation. We will continue to monitor the patient closely and follow as needed. Dr. Merino is the collaborating physician available for consultation. #[id number] [facility]
[2017-05-19] MEDS: TAMSULOSIN 0.4 MG CAP PO SCH (21:11)
[2017-05-19] MEDS: SIMVASTATIN 20 MG TAB PO SCH (21:11)
[2017-05-20] MEDS: PANTOPRAZOLE SODIUM TAB 40 MG PO SCH (06:07)
[2017-05-20] MEDS: INSULIN LISPRO 100 UNITS/ML PEN SUBCU SCH ×4 (07:04→21:01)
[2017-05-20] MEDS: metFORMIN HCL 500 MG TAB PO SCH ×3 (07:06→16:05)
[2017-05-20] MEDS: POTASSIUM CHLORIDE 10 MEQ TAB PO SCH (07:52)
[2017-05-20] MEDS: METOPROLOL TARTRATE 50 MG TAB PO SCH ×2 (07:54→17:27)
[2017-05-20] MEDS: SITagliptin 50 MG TAB PO SCH (07:59)
[2017-05-20] MEDS: GABAPENTIN 400 MG CAP PO SCH ×3 (08:00→21:01)
[2017-05-20] MEDS: CETIRIZINE HCL 10 MG TAB PO SCH (08:00)
[2017-05-20] MEDS: FINASTERIDE 5 MG TAB PO SCH (08:00)
[2017-05-20] MEDS: SODIUM CHLORIDE 0.9% (FLUSH) 10 ML SYG IV SCH ×2 (08:00→21:02)
[2017-05-20] MEDS: FLUTICASONE PROP 0.05% NASAL 16 GM BTTL BNAS SCH (08:01)
[2017-05-20] MEDS ORDERED: LINEZOLID IV 300 ML IVPB ONE ×2 (10:03→20:29)
[2017-05-20] MEDS: LINEZOLID IV 600 MG in PREMIX BAG 1 BAG IVPB SCH ×2 (10:12→23:22)
--- NOTE | 2017-05-20 14:28 | PN ---
DATE: 05/20/17 SUPERVISING PHYSICIAN: Solomon Merino M.D. SUBJECTIVE: The patient is sitting on the side of his bed. He is eating his lunch. He has no complaints of chest pain, nausea, vomiting, diarrhea or dysuria. He feels somewhat better today and wants to walk in the hallways. OBJECTIVE: VITAL SIGNS: He is afebrile, heart rate 51, blood pressure 123/52, respiratory rate 20, O2 sat is 93% on room air. RESPIRATORY: Clear to auscultation bilaterally. CARDIAC: Regular rate and rhythm. ABDOMEN: Soft, nondistended, non-tender. Bowel sounds are positive. He has a Napier catheter in place that is draining clear yellow urine. EXTREMITIES: No cyanosis, clubbing or edema. NEUROLOGIC: He is awake, alert and oriented times three. LABORATORY: WBCs are 8.7 with hemoglobin 11.6, hematocrit 35.8. Chemistries are within normal limits with the exception of his chloride is slightly low at 100, glucose is slightly high at 238. Preliminary blood cultures show no growth after 24 hours. Preliminary urine culture showed no growth after 24 hours. All other labs and films have been reviewed via the EMR. ASSESSMENT: 1. Urinary tract infection with failed outpatient treatment. Previous urine culture of about 10 days ago showed Enterococcus faecalis. 2. Coronary artery disease. 3. Diabetes mellitus type 2. 4. Hypertension. 5. Hyperlipidemia. 6. Anxiety with depression. 7. Benign prostatic hypertrophy. 8. Chronic urinary retention. The patient straight caths 3 times daily. PLAN: We will continue present supportive care. We will keep his Napier catheter in place as long as he is in the hospital due to his chronic urinary retention and the fact that he straight caths 3 times daily at home. We will discontinue it prior to his discharge. We will continue on Zyvox for now and he will need to be discharged on Augmentin. I am still awaiting his culture results. I have encouraged him to walk in the hallways frequently. Also encouraged good pulmonary hygiene. We will continue to monitor the patient closely and follow as needed. Dr. Merino is the collaborating physician available for consultation. #[id number] [facility]
[2017-05-20] MEDS: TAMSULOSIN 0.4 MG CAP PO SCH (21:01)
[2017-05-20] MEDS: SIMVASTATIN 20 MG TAB PO SCH (21:02)
[2017-05-21] MEDS: PANTOPRAZOLE SODIUM TAB 40 MG PO SCH (06:19)
[2017-05-21] MEDS: metFORMIN HCL 500 MG TAB PO SCH ×2 (06:51→08:17)
[2017-05-21] MEDS: INSULIN LISPRO 100 UNITS/ML PEN SUBCU SCH (06:56)
[2017-05-21] MEDS: POTASSIUM CHLORIDE 10 MEQ TAB PO SCH (07:21)
[2017-05-21] MEDS: METOPROLOL TARTRATE 50 MG TAB PO SCH (07:21)
[2017-05-21] MEDS: GABAPENTIN 400 MG CAP PO SCH (08:17)
[2017-05-21] MEDS: CETIRIZINE HCL 10 MG TAB PO SCH (08:17)
[2017-05-21] MEDS: SODIUM CHLORIDE 0.9% (FLUSH) 10 ML SYG IV SCH (08:17)
[2017-05-21] MEDS: SITagliptin 50 MG TAB PO SCH (08:17)
[2017-05-21] MEDS: FLUTICASONE PROP 0.05% NASAL 16 GM BTTL BNAS SCH (08:17)
[2017-05-21] MEDS: FINASTERIDE 5 MG TAB PO SCH (08:17)
[2017-05-21 09:03] VITALS: BP 125/70; TEMP 97.1; O2SAT 95
--- NOTE | 2017-05-21 17:56 | DS ---
SUPERVISING PHYSICIAN: Solomon Merino M.D. DISCHARGE DIAGNOSIS: 1. Acute on chronic urinary tract infection having failed outpatient treatment plan in the with last culture showing Enterococcus faecalis and Enterococcus cloacae infection secondary to self catheterization with the patient having a history of chronic urinary retention. 2. Coronary artery disease. 3. Diabetes mellitus type 2. 4. Hypertension. 5. Hyperlipidemia. 6. Anxiety with depression. 7. Benign prostatic hypertrophy. 8. Chronic urinary retention requiring self catheterization at least 3 times a day. HISTORY OF PRESENT ILLNESS: Mr. Fletcher is a 72-year-old male patient of Dr. Edwards's that was seen a week ago for underlying urinary tract infection. He initially was treated with Cipro and his cultures came back, it was Enterococcus faecalis. It was resistant to Cipro, so he was discontinued and Augmentin was ordered. He continued to complaint of dysuria and did not get his Augmentin filled. He does have a significant history of chronic urinary retention and does void small amounts each day, but he utilizes a straight cath at least three times a day. Dr. Edwards requested the patient be admitted having failed to respond to treatment for underlying urinary tract infection secondary to resistant Enterococcus faecalis. The patient was admitted in stable condition. LABORATORY: CBC on admission showed a white count of 8,800, at discharge was 8, 700. Hemoglobin and hematocrit were stable and at discharge was 11.6 and 35.8. Platelet count was at 312,000. Differential showed to be within normal limits. Chemistries showed stable glucose between 103 and 138. Electrolytes were within normal limits. BUN 14, creatinine 0.86. Liver functions within normal limits. MICROBIOLOGY: Repeat urine culture on admission showed no growth at 48 hours. Blood cultures remain negative at 48 hours. Previous cultures on 04/18/17 showed Enterococcus faecalis that was sensitive to Zyvox. He also had Enterobacter cloacae that was showing sensitive to Nitrofurantoin but resistant to Piperacillin, sulfa, Cefoxitin and Cefazolin. RADIOLOGY: There are no radiographic studies available for review. HOSPITAL COURSE: Mr. Fletcher was admitted on 05/18/17 as noted in History of Present Illness. He was started with a catheter and initiated on antibiotics to include Zyvox. Clinically he showed improvement. His repeat cultures showed no growth on admission. He remained afebrile and was felt clinically well enough to discharge and continue with outpatient treatment plan. PLAN: The patient is discharged on 05/21/17 with instructions to followup with Dr. Edwards in 2 weeks or less if symptoms worsen or fail to improve. He was given new prescriptions to include antibiotic with Augmentin and to take as directed until completion. He was to resume his other home medications except for the Macrobid. Diet at discharge was diabetic diet as tolerated. Activity as tolerated. He was instructed to utilize self catheterization and to not reuse his catheters to prevent reinfection. He will need close clinical followup again for a repeat urinalysis in 10 days or earlier should he show recurrence of symptoms. He was encouraged to utilize [id number] probiotics to prevent complications of therapy. Condition at discharge was improved and stable. #[id number] [facility]
== END 2017-05-21 10:53 | disposition home or self-care (01) | DRG 699 ==
LOC: MS 21:32
PROVIDERS: ADMIT Nurse Practitioner Acute Care; ATTEND Nurse Practitioner Family
DX: T83.518A Infection and inflammatory reaction due to other urinary catheter, initial encounter (principal); N39.0 Urinary tract infection, site not specified; B95.2 Enterococcus as the cause of diseases classified elsewhere; I25.10 Atherosclerotic heart disease of native coronary artery without angina pectoris; E11.9 Type 2 diabetes mellitus without complications; I10 Essential (primary) hypertension; E78.5 Hyperlipidemia, unspecified; F41.9 Anxiety disorder, unspecified; F32.9 Major depressive disorder, single episode, unspecified; N40.1 Benign prostatic hyperplasia with lower urinary tract symptoms; R33.9 Retention of urine, unspecified; Z16.23 Resistance to quinolones and fluoroquinolones; M15.9 Polyosteoarthritis, unspecified; G47.33 Obstructive sleep apnea (adult) (pediatric); Y92.009 Unspecified place in unspecified non-institutional (private) residence as the place of occurrence of the external cause; I25.2 Old myocardial infarction; Z88.6 Allergy status to analgesic agent; Z87.891 Personal history of nicotine dependence

== ENCOUNTER → 2017-07-14 | Outpatient (CLI) | payer MEDICARE, OTHER | END | disposition home or self-care (01) | LOC: GMA 18:44 | PROVIDERS: ATTEND Nurse Practitioner Family | DX: N30.00 Acute cystitis without hematuria (principal) ==

== ENCOUNTER → 2017-08-31 | Outpatient (CLI) | payer MEDICARE, OTHER | LOC: GMAJS 16:58 | PROVIDERS: ATTEND Physician Assistant | DX: N30.00 Acute cystitis without hematuria (principal) ==

== ENCOUNTER 2017-10-09 20:44 | Inpatient (IN) | payer MEDICARE, OTHER ==
--- NOTE | 2017-10-09 20:45 | HP ---
SUPERVISING PHYSICIAN: Solomon Merino MD CHIEF COMPLAINT: Worsening cough. HISTORY OF PRESENT ILLNESS: Mr. Fletcher is a 72-year-old male patient who for the past week or so has had increasing shortness of breath as well as a cough. He states the cough is nonproductive. He denies any fever, but over that week' s timeframe, he felt a little bit more short of breath than he was initially. For that reason, he went to see Dr. Edwards today at the clinic. At the clinic, he had lab as well as a chest x-ray. Chest x-ray was indicative of a right lower lobe pneumonia. He was placed on Levaquin p.o. and discharged home from the office. However, he called back to Dr. Edwards after clinic hours and stated he felt worse. He felt malaise, and weakness. For that reason, I was called by Dr. Edwards for direct admission of the patient. At the time of examination, the patient was alert and oriented. He has some mild dyspnea. On exam, he has significant rhonchi on the right as well. PAST MEDICAL HISTORY: 1. Chronic urinary retention for which he utilizes self-catheterization 3 times per day. 2. Anxiety with depression. 3. Benign prostatic hypertrophy. 4. Coronary artery disease with history of myocardial infarction times 2. 5. Osteoarthritis. 6. Hyperlipidemia. 7. Hypertension. 8. Obstructive sleep apnea. 9. Diabetes. 10. Likely chronic obstructive pulmonary disease. PAST SURGICAL HISTORY: 1. Transurethral resection of the prostate. 2. Cardiac catheterization. 3. Pain pump insertion. 4. Right hand surgery. CURRENT MEDICATIONS: 1. Vitamin C 500 mg daily. 2. Cetirizine 10 mg daily. 3. Cinnamon 500 mg daily. 4. Clonazepam 0.5 mg at 0600 and 12 noon and 1 mg at bedtime. 5. Finasteride 5 mg daily. 6. Fluticasone 50 mcg nasal spray daily. 7. Gabapentin 1200 mg p.o. t.i.d. 8. Garlic 300 mg daily. 9. Metformin 1000 mg p.o. b.i.d. 10. Metoprolol 50 mg p.o. b.i.d. 11. Nitroglycerin 0.5 mg sublingual every 5 minutes p.r.n. chest pain. 12. MiraLAX 17 gram packet p.o. daily. 13. Potassium 20 mEq p.o. daily. 14. Sertraline 100 mg p.o. b.i.d. 15. Simvastatin 80 mg p.o. at bedtime. 16. Sitagliptin-metformin 1 tab p.o. daily. 17. Tamsulosin 0.4 mg p.o. at bedtime. ALLERGIES: IBUPROFEN. FAMILY HISTORY: Noncontributory. SOCIAL HISTORY: The patient has a history of heavy alcohol use as well as smoking, but quit both of these 20 years ago. REVIEW OF SYSTEMS: CONSTITUTIONAL: No fever or chills. No recent weight loss or weight gain. HEENT: No headaches, vision changes, ear pain, nasal congestion or throat pain. RESPIRATORY: Positive for cough, shortness of breath. No pleuritic chest pain. CARDIOVASCULAR: No chest pain, palpitations or peripheral edema. GASTROINTESTINAL: No nausea, vomiting, diarrhea, constipation or abdominal pain. GENITOURINARY: No dysuria, frequency or flank pain. However, he does have urinary retention for which he self-catheterizes 3 times a day. HEMATOLOGIC: No easy bruising and no transfusion reactions. MUSCULOSKELETAL: No muscle cramps or joint pain. He does have chronic back pain for which he has the pain pump. SKIN: No rashes, lesions or wounds. NEUROLOGIC: Positive for some dizziness, but no headaches, no paresthesias. ENDOCRINE: No polydipsia, polyuria, polyphagia. No heat or cold intolerance. PHYSICAL EXAMINATION: VITAL SIGNS: Blood pressure 128/68. Heart rate 88. Respiratory rate 22. Temperature 99.1. Oxygen saturation 93%. GENERAL: Mr. Fletcher is a 72-year-old male patient who is in no severe distress at this time. HEENT: Normocephalic, atraumatic. Pupils are equal and reactive. No nasal drainage. Throat with moist mucosa. NECK: Supple. Midline trachea. No jugular venous distention. CHEST: Symmetrical with equal rise and fall of the chest with inspiration and expiration. Lung sounds show diffuse rhonchi on the right side. The left side is completely clear. CARDIOVASCULAR: Regular rate and rhythm. Normal S1, S2. ABDOMEN: Obese, soft. Positive bowel sounds. No tenderness to palpation. GENITOURINARY: Deferred. EXTREMITIES: Lower extremities with trace ankle edema. Pulses are 2+. Capillary refill less than 2 seconds. NEUROLOGIC: The patient is alert and oriented. Moves all extremities. Extraocular movements are intact. There are no focal deficits. LABORATORY: Some labs are still pending, but what have come back so far show a white count 8.7, hemoglobin 11.3, hematocrit 34.0, platelet count 229. Chemistries show a sodium 137, potassium 3.6, chloride 102, CO2 29, BUN 18, creatinine 0.79, glucose 157 with a hemoglobin A1c 7.7. Lactate 1.7, magnesium 1.9, phosphorous 2.6. RADIOLOGY: Chest x-ray shows a mild right lower lobe infiltrate. ASSESSMENT: 1. Right lower lobe and possible right upper lobe pneumonia which worsened after treatment in the outpatient setting. 2. Uncontrolled diabetes as evidenced by hemoglobin A1c of 7.7. 3. Mild anemia. 4. History of coronary artery disease. 5. History of hypertension. 6. History of obstructive sleep apnea. PLAN: 1. At this time, we will utilize IV antibiotics with Levaquin and initiate DuoNeb breathing treatments as well. 2. We will resume his p.o. medications for his diabetes. I do not think he will really need sliding scale at this time. His blood sugar is not in a greatly abnormal range. 3. Hemoglobin is a little bit low, but we will monitor this while he is here. 4. Hypertension is currently controlled, so I will not utilize any p.r.n.'s, I will just resume his home medications. 5. We will monitor cultures and adjust antibiotics accordingly. 6. DVT and GI prophylaxis will be ordered as well. #[id number] [facility]
[2017-10-09] MEDS ORDERED: DEXTROSE 50% 25 GM/50 ML SYG IV PRN (21:09)
[2017-10-09] MEDS ORDERED: GLUCAGON INJ 1 MG VIAL SUBCU PRN (21:09)
[2017-10-09] MEDS ORDERED: SODIUM CHLORIDE 0.9% (FLUSH) 10 ML SYG IV PRN (21:09)
[2017-10-09] MEDS ORDERED: IV SET AND CAP CHANGE INJ INJ SCH (21:30)
[2017-10-09] MEDS: levoFLOXacin 750MG IV 750 MG in PREMIX BAG 1 BAG IVPB SCH (21:30)
--- NOTE | 2017-10-09 22:30 | RAD ---
EXAM: Chest,2 Views CLINICAL INDICATION: 72-year-old male with pneumonia. TECHNIQUE: Two-view, PA and lateral projections of the chest were obtained. COMPARISON: Single view chest 02/09/2017. FINDINGS: Stable prominent cardiac and mediastinal silhouette. Heart size is top normal. Tortuous atherosclerotic thoracic aorta. Slightly hazy opacity overlying the projection of the RIGHT upper lobe, overlying the projection of the anterior fourth rib, raising the concern for developing consolidation, underlying scarring/sequela of infectious, inflammatory process or pulmonary nodule. Lungs are otherwise clear without focal opacity, pneumothorax or pleural effusions. The visualized bones are within normal limits. IMPRESSION: Nonspecific RIGHT upper lobe opacity as detailed above. Please correlate with patient clinical findings and follow-up for resolution. Electronically signed by: Maryann Leal MD 10/09/2017 10:27 PM CDT
[2017-10-09] MEDS ORDERED: NITROGLYCERIN 0.4 MG 25 EA TAB SL PRN (22:31)
[2017-10-09] MEDS ORDERED: POLYETHYLENE GLYCOL 3350 17 GM PCKT PO PRN (22:31)
[2017-10-09] MEDS ORDERED: KCL 20 MEQ/NS 1,000 ML IVS PRN (22:41)
[2017-10-09] MEDS: IPRATROPIUM/ALBUTEROL 3 ML VIAL INH SCH ×2 (23:00→23:40)
[2017-10-09] MEDS ORDERED: ENOXAPARIN SODIUM 40 MG/0.4 ML SYG SUBCU SCH (23:00)
[2017-10-10] MEDS: IPRATROPIUM/ALBUTEROL 3 ML VIAL INH SCH ×6 (04:15→23:41)
[2017-10-10] MEDS ORDERED: CLONAZEPAM 0.5 MG PO SCH (06:00)
[2017-10-10] MEDS: INSULIN LISPRO 100 UNITS/ML PEN SUBCU SCH ×4 (07:24→20:57)
[2017-10-10] MEDS ORDERED: CINNAMON 1000 MG PO SCH (09:00)
[2017-10-10] MEDS ORDERED: NON-FORMULARY MEDICATION 1 EA MIS (Sitagliptin-Metformin Hcl [Janumet 50-1000 Mg] 1 TAB) PO SCH (09:00)
[2017-10-10] MEDS ORDERED: GARLIC PO SCH (09:00)
[2017-10-10] MEDS: GABAPENTIN 400 MG CAP PO SCH ×3 (09:15→20:57)
[2017-10-10] MEDS: SERTRALINE HCL 50 MG TAB PO SCH ×2 (09:15→20:56)
[2017-10-10] MEDS: FLUTICASONE PROP 0.05% NASAL 16 GM BTTL BNAS SCH (09:15)
[2017-10-10] MEDS: POTASSIUM CHLORIDE 20 MEQ TAB PO SCH (09:16)
[2017-10-10] MEDS: FINASTERIDE 5 MG TAB PO SCH (09:16)
[2017-10-10] MEDS: METOPROLOL TARTRATE 50 MG TAB PO SCH ×2 (09:16→17:15)
[2017-10-10] MEDS: SITagliptin 50 MG TAB PO SCH (09:16)
[2017-10-10] MEDS: ASCORBIC ACID 500 MG TAB PO SCH (09:16)
[2017-10-10] MEDS: CETIRIZINE HCL 10 MG TAB PO SCH (09:16)
[2017-10-10] MEDS: metFORMIN HCL 500 MG TAB PO SCH (09:16)
[2017-10-10] MEDS: KCL 20 MEQ/NS 1,000 ML IVS PRN (09:21)
--- NOTE | 2017-10-10 11:40 | PN ---
SUPERVISING PHYSICIAN: Solomon Merino MD DATE: 10/10/17 SUBJECTIVE: The patient feels okay. He states he feels a little bit better than he did when he first came in. He did not have any significant events overnight. OBJECTIVE: VITAL SIGNS: Blood pressure 114/61. Heart rate 62. Respiratory rate 20. Temperature 98.1. Oxygen saturation 98%. GENERAL: Mr. Fletcher is a 72-year-old male patient in no active distress currently. NEUROLOGIC: Alert and oriented. LUNGS: Still has rhonchi on the right, but really sounds better than it did initially when he came in. CARDIOVASCULAR: Regular rate and rhythm. Normal S1, S2. ABDOMEN: Soft, obese. Positive bowel sounds. EXTREMITIES: Lower extremities with no trace ankle edema. Pulses 2+. Capillary refill is less than 2 seconds. LABORATORY: He has not had any repeat x-ray as of yet, nor labs except for his lactate, which went down, 7 initial draw at 21:30 and went down to 1.3 at 3:30. ASSESSMENT: 1. Right lower lobe and possible right upper lobe pneumonia, failed outpatient therapy. 2. Uncontrolled diabetes. 3. Mild anemia. 4. History of coronary artery disease. 5. History of hypertension. 6. History of obstructive sleep apnea. PLAN: 1. We will continue current therapy which includes IV antibiotics as well as DuoNeb nebulized therapies. 2. Continue current treatment for his diabetes which is p.o. medications at this time. 3. We will repeat his labs and chest x-ray tomorrow to ensure everything is stable. [facility][id number] [facility]
[2017-10-10] MEDS ORDERED: SIMVASTATIN 20 MG TAB PO SCH (21:00)
[2017-10-10] MEDS ORDERED: ENOXAPARIN SODIUM 40 MG/0.4 ML SYG SUBCU SCH (21:00)
[2017-10-10] MEDS ORDERED: TAMSULOSIN 0.4 MG CAP PO SCH (21:00)
[2017-10-10] MEDS: levoFLOXacin 750MG IV 750 MG in PREMIX BAG 1 BAG IVPB SCH (21:01)
[2017-10-11] MEDS: IPRATROPIUM/ALBUTEROL 3 ML VIAL INH SCH ×3 (04:02→13:20)
[2017-10-11] MEDS: KCL 20 MEQ/NS 1,000 ML IVS PRN (04:40)
[2017-10-11] MEDS: INSULIN LISPRO 100 UNITS/ML PEN SUBCU SCH ×2 (07:47→12:26)
[2017-10-11] MEDS: METOPROLOL TARTRATE 50 MG TAB PO SCH (08:03)
[2017-10-11] MEDS: POTASSIUM CHLORIDE 20 MEQ TAB PO SCH (08:03)
[2017-10-11] MEDS: FLUTICASONE PROP 0.05% NASAL 16 GM BTTL BNAS SCH (09:19)
[2017-10-11] MEDS: metFORMIN HCL 500 MG TAB PO SCH (09:20)
[2017-10-11] MEDS: ASCORBIC ACID 500 MG TAB PO SCH (09:20)
[2017-10-11] MEDS: SITagliptin 50 MG TAB PO SCH (09:20)
[2017-10-11] MEDS: CETIRIZINE HCL 10 MG TAB PO SCH (09:20)
[2017-10-11] MEDS: SERTRALINE HCL 50 MG TAB PO SCH (09:20)
[2017-10-11] MEDS: GABAPENTIN 400 MG CAP PO SCH (09:20)
[2017-10-11] MEDS: FINASTERIDE 5 MG TAB PO SCH (09:20)
[2017-10-11 10:45] VITALS: BP 121/64; TEMP 97.6; O2SAT 95
--- NOTE | 2017-10-11 13:24 | RAD ---
EXAM DESCRIPTION: Chest,2 Views CLINICAL HISTORY: follow up pneumonia COMPARISON: Chest radiograph dated October 09, 2017 FINDINGS: Frontal and lateral views of the chest. Cardiac silhouette and pulmonary vascularity are within normal limits. Previously described subtle opacity over the anterior right fourth rib is not demonstrated on this examination. Minimal linear opacity seen in the peripheral left lung base, most compatible with atelectasis. No pleural effusion. No pneumothorax. Degenerative changes of the thoracic spine. IMPRESSION: 1. Previous subtle opacity over the anterior right fourth rib is not demonstrated on this examination and may represent resolved pneumonia/atelectasis. 2. Minimal linear opacity in the peripheral left lung base, most compatible with subsegmental atelectasis. 3. No new focal consolidative pulmonary infiltrates. Electronically signed by: Ed Grullon MD 10/11/2017 1:22 PM CDT
--- NOTE | 2017-10-11 15:13 | DS ---
SUPERVISING PHYSICIAN: Solomon Merino MD ADMISSION DIAGNOSIS: 1. Right lower lobe and possible right upper lobe pneumonia. 2. Uncontrolled diabetes. 3. Mild anemia. 4. History of coronary artery disease. 5. History of hypertension. 6. History of obstructive sleep apnea. DISCHARGE DIAGNOSIS: 1. Right lower lobe and possible right upper lobe pneumonia. 2. Uncontrolled diabetes. 3. Mild anemia. 4. History of coronary artery disease. 5. History of hypertension. 6. History of obstructive sleep apnea. HOSPITAL COURSE: This is a 72-year-old male patient who came into the hospital as a direct admit. He was seen in Dr. Edwards's office prior to admission. At that point, he has complained of some shortness of breath. His chest x-ray was concerning for right lower lobe pneumonia and followup was placed on Levaquin and discharged home from the office. However, after arriving home, he started feeling worse. Therefore, he was referred for admission by Dr. Edwards. I saw the patient in direct admission. CBC showed a normal white count with a hemoglobin of 11.3 and hematocrit 34.0. He had unremarkable chemistry. Lactate was 1.7. Hemoglobin A1c was 7.7. Over the course of the next couple of days, he was on IV antibiotics with IV Levaquin. He was also given breathing treatments. His chemistry remained unremarkable and recheck of CBC this morning showed a white count of 8.7, hemoglobin 11.2, hematocrit 34.0. Followup chest x-ray which previously had shown a small opacity over anterior fourth rib on the right side was resolved. On exam, his rhonchi on the right side was completely resolved. The patient felt much better. I took him off of his oxygen and ambulated in the hallway and he maintained oxygenation and his shortness of breath was minimal. Therefore, he was discharged in stable condition on 10/11/17. DISCHARGE CONDITION: Stable. DISCHARGE DIET: As per previous diet. DISCHARGE MEDICATIONS: 1. Levaquin 750 mg daily for 5 days. 2. Albuterol inhaler 2 puffs 4 times a day. FOLLOWUP: Followup appointment on 10/17/[address] Edwards at 1:30. #[id number] [facility]
== END 2017-10-11 14:20 | disposition home or self-care (01) | DRG 195 ==
LOC: MS 20:44
PROVIDERS: ADMIT Nurse Practitioner; ATTEND Nurse Practitioner
DX: J18.9 Pneumonia, unspecified organism (principal); E11.65 Type 2 diabetes mellitus with hyperglycemia; D64.9 Anemia, unspecified; I25.10 Atherosclerotic heart disease of native coronary artery without angina pectoris; I10 Essential (primary) hypertension; G47.33 Obstructive sleep apnea (adult) (pediatric); R33.9 Retention of urine, unspecified; F41.9 Anxiety disorder, unspecified; F32.9 Major depressive disorder, single episode, unspecified; N40.1 Benign prostatic hyperplasia with lower urinary tract symptoms; M19.90 Unspecified osteoarthritis, unspecified site; E78.5 Hyperlipidemia, unspecified; I25.2 Old myocardial infarction; Z79.84 Long term (current) use of oral hypoglycemic drugs; Z88.6 Allergy status to analgesic agent; Z87.891 Personal history of nicotine dependence

== ENCOUNTER 2017-10-12 20:35 | Emergency (ER) | payer MEDICARE, OTHER ==
[2017-10-12] MEDS ORDERED: ONDANSETRON INJ 4 MG/2 ML VIAL IV ONE (20:42)
--- NOTE | 2017-10-12 20:46 | ED.PDOC ---
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 IS A POOR HISTORIAN - History of Present Illness Abdominal Pain Onset Location: LUQ, epigastric Pain Radiation: no radiation Quality: mild, cramping, intermittent Timing/Duration: 1-3 hours Improving Factors: nothing Worsening Factors: nothing Associated Symptoms: nausea/vomiting Review of Systems - Review of Systems Constitutional: States: no symptoms reported EENTM: States: no symptoms reported Respiratory: States: cough Cardiology: States: no symptoms reported Gastrointestinal/Abdominal: States: abdominal pain, nausea, vomiting Genitourinary: States: no symptoms reported Musculoskeletal: States: no symptoms reported Skin: States: no symptoms reported Neurological: States: no symptoms reported Endocrine: States: no symptoms reported Hematologic/Lymphatic: States: no symptoms reported Past Medical History (General) - Patient Medical History Hx Seizures: No Hx Stroke: No Hx Dementia: No Hx Asthma: No Hx of COPD: No Hx Cardiac Disorders: Yes Hx Congestive Heart Failure: No Hx Pacemaker: No Hx Hypertension: Yes Hx Thyroid Disease: No Hx Diabetes: Yes Hx Gastroesophageal Reflux: Yes Hx Renal Disease: No Hx Cancer: No Hx of HIV: No Hx Hepatitis C: No Hx MRSA: No - Vaccination History Hx Tetanus, Diphtheria Vaccination: Yes Hx Influenza Vaccination: No Hx Pneumococcal Vaccination: Yes - Social History Hx Tobacco Use: No Hx Chewing Tobacco Use: No Hx Alcohol Use: Yes Hx Substance Use: No Hx Substance Use Treatment: No Hx Depression: No Hx Physical Abuse: No Hx Emotional Abuse: No Hx Suspected Abuse: No - Female History Patient : No Family Medical History - Family History Mother Family History: Unknown Living Status: Cause of : uterine cancer Father Family History: Unknown Living Status: Cause of : hardening of arteries Physical Exam - Physical Exam General Appearance: Comfortable, No apparent distress, Well Developed, Well Groomed, Well Hydrated, Well Nourished Eyes, Ears, Nose, Throat Exam: PERRL/EOMI, normal ENT inspection Neck: non-tender, full range of motion Respiratory: chest non-tender, lungs clear, normal breath sounds, no respiratory distress, no accessory muscle use Cardiovascular/Chest: normal peripheral pulses, regular rate, rhythm, no edema, no gallop, no JVD Peripheral Pulses: No deficit Gastrointestinal/Abdominal: non tender, soft, other - HYPERACTIVE BOWEL SOUNDS, PAIN PUMP RIGHT LOWER ABD Back Exam: normal inspection Extremity: normal range of motion, non-tender, normal inspection 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 as 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, no motor/sensory deficits, alert Skin Exam: normal color, warm/dry Progress - Progress Progress: 10/12/17 21:38 10/12/17 20:45 EKG STAT 10/12/17 21:36 BNP [B-TYPE NATRIURETIC PEPTIDE/BNP] Stat Sodium Chloride 0.9% 500Ml [NS 500ml] 500 ml IVS ONCE Laboratory Results WBC 9.8 K/mm3 (4.8-10.8) 10/12/17 20:30 RBC 4.81 M/mm3 (4.70-6.10) 10/12/17 20:30 Hgb 13.1 gm/dL (14.0-18.0) L 10/12/17 20:30 Hct 38.7 % (42.0-52.0) L 10/12/17 20:30 MCV 80.5 fl (80.0-94.0) 10/12/17 20:30 MCH 27.2 pg (27.0-31.0) 10/12/17 20:30 MCHC 33.9 g/dL (33.0-37.0) 10/12/17 20:30 RDW 15.7 % (11.5-14.5) H 10/12/17 20:30 Plt Count 310 K/mm3 (130-400) 10/12/17 20:30 MPV 8.0 fl (7.40-10.4) 10/12/17 20:30 Absolute Neuts (auto) 7.60 K/uL (1.8-6.8) H 10/12/17 20:30 Absolute Lymphs (auto) 1.70 K/uL (1.0-3.4) 10/12/17 20:30 Absolute Monos (auto) 0.50 K/uL (0.2-0.8) 10/12/17 20:30 Absolute Eos (auto) 0.00 K/uL (0.0-0.4) 10/12/17 20:30 Absolute Basos (auto) 0.00 K/uL (0.0-0.1) 10/12/17 20:30 Neutrophils % 77.7 % (42.0-78.0) 10/12/17 20:30 Lymphocytes % 17.4 % (20.0-50.0) L 10/12/17 20:30 Monocytes % 4.6 % (2.0-9.0) 10/12/17 20: Eosinophils % 0.2 % (1.0-5.0) L 10/12/17 20: Basophils % 0.1 % (0.0-2.0) 10/12/17 20:30 Sodium 137 mmol/L (135-145) 10/12/17 20:30 Potassium 3.9 mmol/L (3.6-5.0) 10/12/17 20:30 Chloride 103 mmol/L (101-111) 10/12/17 20:30 Carbon Dioxide 24 mmol/L (21-31) 10/12/17 20:30 Anion Gap 13.9 (12-18) 10/12/17 20:30 BUN 15 mg/dL (7-18) 10/12/17 20:30 Creatinine 0.72 mg/dL (0.6-1.3) 10/12/17 20:30 BUN/Creatinine Ratio 20.8 (10-20) H 10/12/17 20:30 Random Glucose 176 mg/dL (70-105) H 10/12/17 20:30 Serum Osmolality 279.0 mOsm/L (275-295) 10/12/17 20:30 Calcium 9.6 mg/dL (8.4-10.2) 10/12/17 20:30 Total Bilirubin 0.5 mg/dL (0.2-1.0) 10/12/17 20:30 AST 27 IU/L (10-42) 10/12/17 20:30 ALT 29 IU/L (10-60) 10/12/17 20:30 Alkaline Phosphatase 62 IU/L (42-121) 10/12/17 20:30 Serum Total Protein 7.6 gm/dL (6.4-8.2) 10/12/17 20:30 Albumin 4.0 g/dl (3.2-5.5) 10/12/17 20:30 Globulin 3.6 gm/dL (2.3-3.5) H 10/12/17 20:30 Albumin/Globulin Ratio 1.1 (1.1-1.9) 10/12/17 20: Lipase 28 U/L (22-51) 10/12/17 20:30 Laboratory Last Values WBC 9.8 K/mm3 (4.8-10.8) 10/12/17 20: RBC 4.81 M/mm3 (4.70-6.10) 10/12/17 20: Hgb 13.1 gm/dL (14.0-18.0) L 10/12/17 20: Hct 38.7 % (42.0-52.0) L 10/12/17 20: MCV 80.5 fl (80.0-94.0) 10/12/17 20: MCH 27.2 pg (27.0-31.0) 10/12/17 20: MCHC 33.9 g/dL (33.0-37.0) 10/12/17: RDW 15.7 % (11.5-14.5) H 10/12/17 20: Plt Count 310 K/mm3 (130-400) 10/12/17 20: MPV 8.0 fl (7.40-10.4) 10/12/17 20: Absolute Neuts (auto) 7.60 K/uL (1.8-6.8) H 10/12/17 20: Absolute Lymphs (auto) 1.70 K/uL (1.0-3.4) 10/12/17 20: Absolute Monos (auto) 0.50 K/uL (0.2-0.8) 10/12/17 20: Absolute Eos (auto) 0.00 K/uL (0.0-0.4) 10/12/17 20: Absolute Basos (auto) 0.00 K/uL (0.0-0.1) 10/12/17 20: Neutrophils % 77.7 % (42.0-78.0) 10/12/17 20: Lymphocytes % 17.4 % (20.0-50.0) L 10/12/17 20: Monocytes % 4.6 % (2.0-9.0) 10/12/17 20: Eosinophils % 0.2 % (1.0-5.0) L 10/12/17 20:30 Basophils % 0.1 % (0.0-2.0) 10/12/17 20:30 Sodium 137 mmol/L (135-145) 10/12/17 20:30 Potassium 3.9 mmol/L (3.6-5.0) 10/12/17 20:30 Chloride 103 mmol/L (101-111) 10/12/17 20:30 Carbon Dioxide 24 mmol/L (21-31) 10/12/17 20:30 Anion Gap 13.9 (12-18) 10/12/17 20:30 BUN 15 mg/dL (7-18) 10/12/17 20:30 Creatinine 0.72 mg/dL (0.6-1.3) 10/12/17 20: BUN/Creatinine Ratio 20.8 (10-20) H 10/12/17 20:30 Random Glucose 176 mg/dL (70-105) H 10/12/17 20:30 Serum Osmolality 279.0 mOsm/L (275-295) 10/12/17 20:30 Calcium 9.6 mg/dL (8.4-10.2) 10/12/17 20:30 Total Bilirubin 0.5 mg/dL (0.2-1.0) 10/12/17 20:30 AST 27 IU/L (10-42) 10/12/17 20:30 ALT 29 IU/L (10-60) 10/12/17 20:30 Alkaline Phosphatase 62 IU/L (42-121) 10/12/17 20:30 Serum Total Protein 7.6 gm/dL (6.4-8.2) 10/12/17 20:30 Albumin 4.0 g/dl (3.2-5.5) 10/12/17 20:30 Globulin 3.6 gm/dL (2.3-3.5) H 10/12/17 20:30 Albumin/Globulin Ratio 1.1 (1.1-1.9) 10/12/17 20:30 Lipase 28 U/L (22-51) 10/12/17 20:30 PT ALERT AND ORIENTED, PT STATES THAT HE FEELS IMPROVED AFTER ZOFRAN IS NONTOXIC AND ASYMPTOMATIC, FAMILY AT BEDSIDE AND REPORTED PATIENT HAS INCREASED SOMNOLENCE THIS AFTER NOON AND ONE EPISODE OF VOMITING. NO LOCALIZED PAIN. REVIEWED MEDICATIONS AND FOUND PATIENT IS ON LEVOFLOXACIN AND CLONAZEPAM. DISCUSSED NEED TO CHANGE THESE INCASE CAUSING DELIRIUM. LAB WORK REVIEWED AND NO SIGNIFICANT DERANGEMENT FOUND. DR. HILL REQUESTED A BNP WHICH I ORDERED. EKG SHOWS NO ANGINA RATE IS 64, IA 132, QRS 94 QTC 441. NEUROLOGIC EXAM NON FOCAL AND BASELINE AT THIS TIME. I WILL TREAT PATIENT'S SYMPTOMS. I WILL CHANGE ABX AND HOLD CLONAZEPAM IF INCREASED SOMNOLENCE AT HOME. Departure - Departure Clinical Impression: Delirium Medication reaction Qualifiers: Encounter type: initial encounter Qualified Code(s): T88.7XXA - Unspecified adverse effect of drug or medicament, initial encounter Vomiting alone Qualifiers: Vomiting type: unspecified Vomiting Intractability: non-intractable Qualified Code(s): R11.11 - Vomiting without nausea Time of Disposition: 21:46 Disposition: Discharge to Home or Self Care Condition: Excellent Instructions: Delirium, DI for Vomiting -- Adult, Nausea and Vomiting-Adult Diet: resume usual diet Activity: increase activity as tolerated Referrals: Cesar Hill MD [Primary Care Provider] - 1-2 Days Prescriptions: Amoxicillin & Pot Clavulanate [Augmentin Tab] 875 mg PO BID #20 tab Ondansetron Odt (ER Disp) [Zofran ODT (ER DISP)] 4 mg PO Q8H PRN #10 tab PRN Reason: Nausea/Vomiting Home Medications: Ambulatory Orders Finasteride 5 mg PO DAILY 01/21/14 Gabapentin [Neurontin] 1,200 mg PO TID 01/21/14 Metformin HCl 1,000 mg PO BIDAC 01/21/14 Metoprolol Tartrate 50 mg PO BID 01/21/14 Sertraline HCl 100 mg PO BID 01/21/14 Simvastatin [Zocor] 80 mg PO BEDTIME 01/21/14 Tamsulosin HCl 0.4 mg PO BEDTIME 01/21/14 Ascorbic Acid [Vitamin C] 500 mg PO DAILY 05/18/17 Cetirizine HCl [All Day Allergy] 10 mg PO DAILY 05/18/17 Cinnamon 1,000 mg PO DAILY 05/18/17 Clonazepam 0.5 mg PO 0600,1200,1600 05/18/17 Fluticasone Prop 0.05% Nasal [Flonase Nasal Magna] 50 mcg NA DAILY 05/18/17 Garlic [Odorless Garlic] 600 mg PO DAILY 05/18/17 Nitroglycerin 0.4 mg Tab [Nitrostat] 0.4 mg SL Q5MIN PRN 05/18/17 Polyethylene Glycol 3350 [Miralax] 1 tsp PO QD PRN 05/18/17 Potassium Chloride [Potassium Chloride ER] 20 meq PO DAILY 05/18/17 Sitagliptin-Metformin HCl [Janumet 50-1000 mg] 1 tab PO DAILY 05/18/17 Clonazepam 1 mg PO BEDTIME 10/09/17 Albuterol Inhaler [Ventolin Hfa Inhaler] 2 puff INH QID #1 inh 10/11/17 Levofloxacin [Levaquin] 750 mg PO DAILY 5 Days #5 tablet 10/11/17 Amoxicillin & Pot Clavulanate [Augmentin Tab] 875 mg PO BID #20 tab 10/12/17 Ondansetron Odt (ER Disp) [Zofran ODT (ER DISP)] 4 mg PO Q8H PRN #10 tab Additional Instructions: STOP LEVOFLOXACIN AND START NEW ANTIBIOTIC. HOLD CLONAZEPAM IF PATIENT IS DROWSY. INCREASE PO FLUID INTAKE. RETURN IF PERSISTENT ISSUE, FOCAL WEAKNESS, WORSENING OF SYMPTOMS, PROBLEM, CONCERN
[2017-10-12 20:59] VITALS: TEMP 98.4
[2017-10-12] MEDS ORDERED: SODIUM CHLORIDE 0.9% 500ML 500 ML IVS ONE (21:36)
[2017-10-12 22:21] VITALS: BP 128/63; O2SAT 99
[2017-10-12] MEDS ORDERED: ONDANSETRON ODT (ER DISP) 8 MG TAB PO ONE (22:41)
[2017-10-12] MEDS ORDERED: AMOXICILLIN & POT CLAVULANATE 875 MG TAB ONE (23:43)
[2017-10-12] MEDS ORDERED: AMOXICILLIN & POT CLAVULANATE 875 MG TAB PO ONE (23:44)
== END 2017-10-12 23:50 | disposition home or self-care (01) ==
LOC: ER 20:35
DX: R41.0 Disorientation, unspecified (principal); R11.2 Nausea with vomiting, unspecified; T50.905A Adverse effect of unspecified drugs, medicaments and biological substances, initial encounter; I10 Essential (primary) hypertension; E11.9 Type 2 diabetes mellitus without complications; K21.9 Gastro-esophageal reflux disease without esophagitis; Z79.899 Other long term (current) drug therapy; Y92.009 Unspecified place in unspecified non-institutional (private) residence as the place of occurrence of the external cause
CPT/HCPCS: 36415; 80053; 83690; 83880; 85025; 93005; J2405; J7040

== ENCOUNTER → 2017-10-20 | Outpatient (CLI) | payer MEDICARE, OTHER ==
--- NOTE | 2017-10-20 12:40 | US ---
EXAM DESCRIPTION: Gall Bladder CLINICAL HISTORY: 72 years Male, VOMITING COMPARISON: None. FINDINGS: Right upper quadrant sonography demonstrates an upper normal liver that is increased in echogenicity and difficult to penetrate consistent with fatty infiltration. No cystic or solid mass is evident with hepatopetal flow in the 1.3 cm portal vein noted. Gallbladder is normally distended with wall thickness upper normal at 2.7 mm. A small nonshadowing nonmobile 3.8 mm polyp along the superior wall is present. No stones or pericholecystic edema is seen in the common duct is normal at 3.4 mm. The pancreas is poorly visualized. The right kidney is 12.2 cm in length without obstruction or mass or cyst. No ascites is noted. No gross abnormality of the vena cava noted. IMPRESSION: 1. Echogenic difficult to penetrate fatty infiltrated liver without focal mass. 2. 3.8 mm small probable polyp along the superior wall of the gallbladder with otherwise normal appearance. 3. Poor visualization of the pancreas. Electronically signed by: Cesar Rasmussen MD 10/20/2017 12:39 PM CDT
== END | disposition home or self-care (01) ==
LOC: US 08:30
PROVIDERS: ATTEND Family Medicine
DX: R11.10 Vomiting, unspecified (principal)

== ENCOUNTER → 2018-01-18 | Outpatient (CLI) | payer MEDICARE, OTHER | LOC: GMAM 17:31 | PROVIDERS: ATTEND Family Medicine | DX: R35.0 Frequency of micturition (principal); R53.83 Other fatigue ==

== ENCOUNTER → 2018-03-21 | Outpatient (CLI) | payer MEDICARE | LOC: GMAM 14:30 | PROVIDERS: ATTEND Family Medicine | DX: R05 Cough (principal) ==

== ENCOUNTER → 2018-03-23 | Outpatient (CLI) | payer MEDICARE, OTHER ==
--- NOTE | 2018-03-23 12:10 | CT ---
EXAM DESCRIPTION: Chest w/o Contrast CLINICAL HISTORY: 73 years, Male, ABNORMAL FINDING OF LUNG FIELD COMPARISON: Previous chest x-ray October 11, 2017, CT abdomen and pelvis February 26, 2018 TECHNIQUE: Thin-section noncontrast axial CT images are obtained according to our protocol. Reconstructed MPR images are created and reviewed as well. FINDINGS: Lungs: Subpleural linear increased density is seen with evidence of architectural distortion suggesting subpleural fibrosis with usual interstitial pneumonitis pattern in the right middle lobe and anterior aspect of the right lower lobe as well as the inferior lingula. This involves a small portion of the lung, not likely to be symptomatic. Small nodule in the lingula measures 3 mm. This could be followed as per recommendations below. No consolidating pneumonia. Clustered tiny nodules in the left upper lobe and a few other tiny scattered 1 to 2 mm nodules in the lungs are consistent with old granulomatous infection. On the coronal images, a groundglass nodule in the upper major fissure thought to be in the posterior segment right upper lobe measures 1.1 cm. Lesion with this appearance could be inflammatory but the possibility of early alveolar cell carcinoma cannot be excluded and this should be followed to ensure stability or resolution. Follow-up as per recommendations below. Mediastinum: Lymph nodes are normal in size. 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 Large pulmonary arteries may indicate pulmonary hypertension. Heart size is prominent with no pericardial effusion. Moderate coronary arterial calcification is present. Chest wall/axilla: No mass or adenopathy. Lower neck/supraclavicular: No mass or adenopathy. Upper abdomen: Unremarkable upper abdominal viscera. Coronal and sagittal reformatted images confirm the findings. IMPRESSION: Groundglass density nodule 1.1 cm in the posterior segment right upper lobe near the upper right major fissure. Follow up as per recommendations below. Scattered tiny 1 to 3 mm nodules throughout both lungs consistent with old granulomatous infection. Subpleural fibrotic changes in the right middle lobe, right lower lobe and lingula. 2017 Fleischner Society Recommendations for Subsolid Lung Nodule Follow-Up based on size (average of long- and short-axis diameters). Use most suspicious nodule for followup. Single <6 mm Ground glass: No routine follow-up <6 mm Part solid: No routine follow-up > or = 6 mm Ground glass: CT at 6-12 months to confirm persistence, then CT every 2 years until 5 years > or = 6 mm Part solid: CT at 3-6 months to confirm persistence, If unchanged and solid component remains<6mm, annual CT should be performed for 5 years. This exam was performed according to our departmental dose-optimization program, which includes automated exposure control, adjustment of the mA and/or kV according to patient size and/or use of iterative reconstruction technique. Total DLP equals 964.37 mGycm. Electronically signed by: Blake Bowie MD 03/23/2018 12:08 PM CDT
--- NOTE | 2018-03-23 12:16 | US ---
EXAM DESCRIPTION: Renal CLINICAL HISTORY: 73 years Male, RENAL MASS COMPARISON: None. TECHNIQUE: Retroperitoneal sonogram was performed to evaluate the kidneys and bladder. FINDINGS: Right kidney Right renal length is 11.3 cm. Renal cortical echogenicity appears increased consistent with chronic renal parenchymal disease or senescent changes. Correlate with renal function tests. Echogenic focus may be the posterior wall of a small cyst in the upper cortex of the right kidney. Otherwise no right renal mass, significant sized cyst or shadowing stone. No hydronephrosis. Left kidney Left renal length is 11.9 cm. Renal cortical thickness appears normal but the echogenicity is increased. Small exophytic cyst of the cortex of the lateral left kidney measures 1 cm. Lobulated area in the lower left kidney could be debris filled cyst or small solid mass measuring 2.4 x 1 x 1.2 cm. Patient had a previous sonogram October 20, 2017 which included the right kidney but not the left. Earlier CT exam from February 26, 2018 shows a nonspecific left renal lesion along the posterior aspect which had an appearance strongly suggesting hemorrhagic cyst. On the CT, the high density posterior inferior left renal lesion measured 1.5 cm x 1.7 cm. Since this is apparently visible on sonography, continued sono follow-up is recommended to ensure stability. No left renal shadowing stone. No hydronephrosis. Urinary bladder No images of the urinary bladder were obtained. IMPRESSION: Hyperechoic renal cortex bilaterally. Left renal cyst with additional indeterminate lower left renal lesion probably hemorrhagic cyst. Six month follow-up sonography of the kidneys is recommended. Electronically signed by: Blake Bowie MD 03/23/2018 12:14 PM CDT
== END ==
LOC: US 08:50
PROVIDERS: ATTEND Family Medicine
DX: D41.12 Neoplasm of uncertain behavior of left renal pelvis (principal); R91.8 Other nonspecific abnormal finding of lung field

== ENCOUNTER 2018-04-07 12:02 | Emergency (ER) | payer OTHER ==
[2018-04-07 12:19] VITALS: TEMP 96.3
--- NOTE | 2018-04-07 12:39 | RAD ---
EXAM: Chest,1 View CLINICAL INDICATION: Bradycardia COMPARISON: 10/11/2017 FINDINGS: A single view of the chest was obtained. The heart size is normal. The pulmonary vascularity is unremarkable. The lungs are clear. There is no consolidation, infiltrate, pleural effusion, or pneumothorax. IMPRESSION: No evidence of active pulmonary disease. Electronically signed by: Sridhar Sandoval MD 04/07/2018 12:37 PM CDT
[2018-04-07 13:09] VITALS: BP 144/99; O2SAT 99
--- NOTE | 2018-04-07 13:09 | ED.PDOC ---
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 He said he was also weak & dizzy so he was sent here for evaluation. He has known that he has been bradycardic at least for this past week as his home health nurse discovered it & he has been checking his HR frequently with a pulse ox. He has had no symptoms with it & says his weakness & dizziness are not unusual for him. He takes metoprolol but has had no recent dose changes. [facility] & was told he may need to have his dose reduced. Timing/Duration: 1 week Severity: mild Location: other - no chest pain Activities at Onset: none Prior Chest Pain/Cardiac Workup: cardiac cath, echocardiography, stress test Improving Factors: nothing Worsening Factors: nothing Associated Symptoms: weakness Allergies/Adverse Reactions: Allergies Ibuprofen Allergy (Mild, Verified 10/09/17 22:57) Levofloxacin [From Levaquin] Allergy (Verified 04/07/18 12:29) Home Medications: Ambulatory Orders Finasteride 5 mg PO DAILY 01/21/14 Gabapentin [Neurontin] 1,200 mg PO TID 01/21/14 Metoprolol Tartrate 50 mg PO BID 01/21/14 Sertraline HCl 100 mg PO BID 01/21/14 Simvastatin [Zocor] 40 mg PO BEDTIME 01/21/14 Tamsulosin HCl 0.4 mg PO BEDTIME 01/21/14 Ascorbic Acid [Vitamin C] 1,000 mg PO DAILY 05/18/17 Cetirizine HCl [All Day Allergy] 10 mg PO DAILY 05/18/17 Cinnamon 500 mg PO DAILY 05/18/17 Clonazepam 0.5 mg PO 0600,1200 05/18/17 Fluticasone Prop 0.05% Nasal [Flonase Nasal [place]] 50 mcg NA DAILY 05/18/17 Garlic [Odorless Garlic] 600 mg PO DAILY 05/18/17 Nitroglycerin 0.4 mg Tab [Nitrostat] 0.4 mg SL Q5MIN PRN 05/18/17 Polyethylene Glycol 3350 [Miralax] 1 tsp PO QD PRN 05/18/17 Potassium Chloride [Potassium Chloride ER] 20 meq PO DAILY 05/18/17 Sitagliptin-Metformin HCl [Janumet 50-1000 mg] 1 tab PO DAILY 05/18/17 Clonazepam 1 mg PO BEDTIME 10/09/17 Albuterol Inhaler [Ventolin Hfa Inhaler] 2 puff INH QID #1 inh 10/11/17 Aspirin [Aspirin EC Low Dose] 81 mg PO DAILY 04/07/18 Cranberry (Vaccinium Macrocarp [Theracran Hp For Kids] 50 mg PO DAILY 04/07/18 Cyanocobalamin [Vitamin B12] 500 mcg PO DAILY 04/07/18 Ferrous Sulfate 324 mg PO DAILY 04/07/18 Review of Systems - Review of Systems Constitutional: States: see HPI, weakness EENTM: States: no symptoms reported Respiratory: States: see HPI, other - RAYGOZA no worse than usual Cardiology: States: see HPI Gastrointestinal/Abdominal: States: no symptoms reported Genitourinary: States: no symptoms reported Musculoskeletal: States: no symptoms reported Skin: States: see HPI Neurological: States: no symptoms reported Endocrine: States: no symptoms reported Hematologic/Lymphatic: States: no symptoms reported Past Medical History (General) - Patient Medical History Hx Seizures: No Hx Stroke: No Hx Dementia: No Hx Asthma: No Hx of COPD: No Hx Cardiac Disorders: Yes - [place] Hx Congestive Heart Failure: No Hx Pacemaker: No Hx Hypertension: Yes Hx Thyroid Disease: No Hx Diabetes: Yes Hx Gastroesophageal Reflux: Yes Hx Renal Disease: No Hx Cancer: No Hx of HIV: No Hx Hepatitis C: No Hx MRSA: No - Vaccination History Hx Tetanus, Diphtheria Vaccination: Yes Hx Influenza Vaccination: Yes Hx Pneumococcal Vaccination: No - Social History Hx Tobacco Use: Yes Hx Chewing Tobacco Use: No Hx Alcohol Use: Yes Hx Substance Use: No Hx Substance Use Treatment: No Hx Depression: No Hx Physical Abuse: No Hx Emotional Abuse: No Hx Suspected Abuse: No - Female History Patient : No Family Medical History - Family History Mother Family History: Unknown Living Status: Cause of : uterine cancer Hx Cardiac Disease: Yes - dad Father Family History: Unknown Living Status: Cause of : hardening of arteries Physical Exam - Physical Exam General Appearance: Alert, Comfortable, No apparent distress Neck: full range of motion, supple, normal inspection Respiratory: lungs clear, normal breath sounds, no respiratory distress Cardiovascular/Chest: regular rate, rhythm - HR 52-58, no gallop, no JVD, no murmur Gastrointestinal/Abdominal: non tender, soft Extremity: normal range of motion, non-tender, pedal edema Neurologic: alert, normal mood/affect, oriented x 3 Skin Exam: normal color, warm/dry Progress - Progress Progress: 04/07/18 13:06 asymptomatic. watching TV. 04/08/18 05:14 MDM: I suspect his beta jewels is at least partially involved & have reduced his dose. No wide fluctuations in HR were noted as with SSS. He has had no new symptoms that would indicate a recent ACS. His CK-MB index is < 5%, his troponin normal, & his EKG is normal except for the rate. I do not think an MT is involved. The plan is for him to keep a HR log on the new dose & f/u with his PCP in 4-5 days. He said he felt fine at discharge. - Results/Orders Results/Orders: Hgb 11.5 MB 4.9 CK-MB index 3.7% Tr < 0.02 - EKG/XRAY/CT EKG: Ernesto, Sinus, no ST T wave changes Comments: SB @ 52; nml axis, intervals, QRS, ST & T waves XRAY: chest - no acute process Departure - Departure Clinical Impression: Bradycardia Time of Disposition: 13:07 Disposition: Discharge to Home or Self Care Condition: Good Departure Forms: ED Discharge - Pt. Copy, Patient Portal Self Enrollment Instructions: Bradycardia (DC) Referrals: Cesar Edwards MD [Primary Care Provider] - 04/11/18 Home Medications: Ambulatory Orders Finasteride 5 mg PO DAILY 01/21/14 Gabapentin [Neurontin] 1,200 mg PO TID 01/21/14 Metoprolol Tartrate 50 mg PO BID 01/21/14 Sertraline HCl 100 mg PO BID 01/21/14 Simvastatin [Zocor] 40 mg PO BEDTIME 01/21/14 Tamsulosin HCl 0.4 mg PO BEDTIME 01/21/14 Ascorbic Acid [Vitamin C] 1,000 mg PO DAILY 05/18/17 Cetirizine HCl [All Day Allergy] 10 mg PO DAILY 05/18/17 Cinnamon 500 mg PO DAILY 05/18/17 Clonazepam 0.5 mg PO 0600,1200 05/18/17 Fluticasone Prop 0.05% Nasal [Flonase Nasal [place]] 50 mcg NA DAILY 05/18/17 Garlic [Odorless Garlic] 600 mg PO DAILY 05/18/17 Nitroglycerin 0.4 mg Tab [Nitrostat] 0.4 mg SL Q5MIN PRN 05/18/17 Polyethylene Glycol 3350 [Miralax] 1 tsp PO QD PRN 05/18/17 Potassium Chloride [Potassium Chloride ER] 20 meq PO DAILY 05/18/17 Sitagliptin-Metformin HCl [Janumet 50-1000 mg] 1 tab PO DAILY 05/18/17 Clonazepam 1 mg PO BEDTIME 10/09/17 Albuterol Inhaler [Ventolin Hfa Inhaler] 2 puff INH QID #1 inh 10/11/17 Aspirin [Aspirin EC Low Dose] 81 mg PO DAILY 04/07/18 Cranberry (Vaccinium Macrocarp [Theracran Hp For Kids] 50 mg PO DAILY 04/07/18 Cyanocobalamin [Vitamin B12] 500 mcg PO DAILY 04/07/18 Ferrous Sulfate 324 mg PO DAILY 04/07/18 Additional Instructions: Reduce your metoprolol dose to 25 mg twice a day & log your heart rate twice a day for 5 days.
== END 2018-04-07 13:18 | disposition home or self-care (01) ==
LOC: ER 12:02
DX: R00.1 Bradycardia, unspecified (principal); R42 Dizziness and giddiness; I10 Essential (primary) hypertension; I25.2 Old myocardial infarction; E11.9 Type 2 diabetes mellitus without complications; K21.9 Gastro-esophageal reflux disease without esophagitis; Z87.891 Personal history of nicotine dependence; Z79.899 Other long term (current) drug therapy; Z79.82 Long term (current) use of aspirin; Z88.1 Allergy status to other antibiotic agents; Z88.6 Allergy status to analgesic agent

== ENCOUNTER 2018-04-21 15:31 | Emergency (ER) | payer OTHER ==
[2018-04-21 15:46] VITALS: TEMP 98.5
--- NOTE | 2018-04-21 16:37 | CT ---
EXAM DESCRIPTION: CT head without contrast CLINICAL HISTORY: fall backwards, hit head, mild rt latertal neck pa COMPARISON: February 09, 2017 Technique: Contiguous axial images of the brain were obtained without the administration of intravenous contrast. Multiplanar reformats was obtained and reviewed. This exam was performed according to our departmental dose-optimization program which includes use of Automated Exposure Control, adjustment of the mA and/or kV according to patient size and/or use of iterative reconstruction technique. Findings: Brain: Mild cerebral atrophy. Periventricular and deep white matter hypodensities, most commonly due to nonspecific white matter chronic microvascular ischemia.No hemorrhage. No territorial infarct. No mass effect. No herniation. Ventricles: Within normal limits for patient's age. Bones: No acute osseous abnormality. Left mastoid/occipital skull post surgical changes Paranasal sinuses: Unremarkable. Mastoid air cells: Unremarkable. Soft tissues: No acute abnormality. IMPRESSION: No acute intracranial abnormalities. Mild cerebral atrophy and nonspecific chronic microvascular ischemic changes. No change from prior. See below for CT spine report EXAM DESCRIPTION: CT cervical spine without contrast CLINICAL HISTORY: 73 years Male fall backwards, hit head, mild rt latertal neck pa COMPARISON: January 21, 2016 TECHNIQUE: Multiplanar imaging through the cervical spine without contrast. This exam was performed according to our departmental dose-optimization program, which includes automated exposure control, adjustment of the mA and/or kV according to patient size and/or use of iterative reconstruction technique. FINDINGS: No fracture. No subluxation. Multilevel disc height loss and osteophyte formation and facet arthrosis, more pronounced at C6/7. Soft tissues are unremarkable. Visualized lung is clear. IMPRESSION: No acute abnormality. No fracture or subluxation. Moderate spine degenerative changes. See above for CT head report. Electronically signed by: Morgan Alexander MD 04/21/2018 4:36 PM CDT
--- NOTE | 2018-04-21 16:48 | ED.PDOC ---
History of Present Illness - General Chief Complaint: Trauma Stated Complaint: fall Time Seen by Provider: 04/21/18 15:51 Source: patient Exam Limitations: no limitations - History of Present Illness Initial Comments: the patient's a 73-year-old male presenting to the emergency room after having fallen backwards and hit his head on the ground. He reports that it did not knock him out but family reports that he was a little altered and confused for a couple of minutes. He does not remember very much about the event. There is no laceration. There is no large hematoma. He has mild right sided paraspinal cervical discomfort palpation. No step-offs. No obvious trauma otherwise. His right shoulder is a little bit sore but he moves it well. He is alert and oriented and cooperative. 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 Timing/Duration: momentarily Severity: moderate Improving Factors: nothing Worsening Factors: nothing Associated Symptoms: headaches Allergies/Adverse Reactions: Allergies Ibuprofen Allergy (Mild, Verified 10/09/17 22:57) Levofloxacin [From Levaquin] Allergy (Verified 04/07/18 12:29) Home Medications: Ambulatory Orders Finasteride 5 mg PO DAILY 01/21/14 Gabapentin [Neurontin] 1,200 mg PO TID 01/21/14 Metoprolol Tartrate 50 mg PO BID 01/21/14 Sertraline HCl 100 mg PO BID 01/21/14 Simvastatin [Zocor] 40 mg PO BEDTIME 01/21/14 Tamsulosin HCl 0.4 mg PO BEDTIME 01/21/14 Ascorbic Acid [Vitamin C] 1,000 mg PO DAILY 05/18/17 Cetirizine HCl [All Day Allergy] 10 mg PO DAILY 05/18/17 Cinnamon 500 mg PO DAILY 05/18/17 Clonazepam 0.5 mg PO 0600,1200 05/18/17 Fluticasone Prop 0.05% Nasal [Flonase Nasal [place]] 50 mcg NA DAILY 05/18/17 Garlic [Odorless Garlic] 600 mg PO DAILY 05/18/17 Nitroglycerin 0.4 mg Tab [Nitrostat] 0.4 mg SL Q5MIN PRN 05/18/17 Polyethylene Glycol 3350 [Miralax] 1 tsp PO QD PRN 05/18/17 Potassium Chloride [Potassium Chloride ER] 20 meq PO DAILY 05/18/17 Sitagliptin-Metformin HCl [Janumet 50-1000 mg] 1 tab PO DAILY 05/18/17 Clonazepam 1 mg PO BEDTIME 10/09/17 Albuterol Inhaler [Ventolin Hfa Inhaler] 2 puff INH QID #1 inh 10/11/17 Aspirin [Aspirin EC Low Dose] 81 mg PO DAILY 04/07/18 Cranberry (Vaccinium Macrocarp [Theracran Hp For Kids] 50 mg PO DAILY 04/07/18 Cyanocobalamin [Vitamin B12] 500 mcg PO DAILY 04/07/18 Ferrous Sulfate 324 mg PO DAILY 04/07/18 Review of Systems - Review of Systems Constitutional: States: malaise EENTM: States: no symptoms reported Respiratory: States: no symptoms reported Cardiology: States: no symptoms reported Gastrointestinal/Abdominal: States: no symptoms reported Genitourinary: States: no symptoms reported Musculoskeletal: States: see HPI - chronic back pain Skin: States: no symptoms reported Neurological: States: headache Endocrine: States: no symptoms reported All other Systems: No Change from Baseline Past Medical History (General) - Patient Medical History Hx Seizures: No Hx Stroke: No Hx Dementia: No Hx Asthma: No Hx of COPD: No Hx Cardiac Disorders: Yes - [place] Hx Congestive Heart Failure: No Hx Pacemaker: No Hx Hypertension: Yes Hx Thyroid Disease: No Hx Diabetes: Yes Hx Gastroesophageal Reflux: Yes Hx Renal Disease: No Hx Cancer: No Hx of HIV: No Hx Hepatitis C: No Hx MRSA: No - Vaccination History Hx Tetanus, Diphtheria Vaccination: Yes Hx Influenza Vaccination: Yes Hx Pneumococcal Vaccination: No - Social History Hx Tobacco Use: Yes Hx Chewing Tobacco Use: No Hx Alcohol Use: Yes Hx Substance Use: No Hx Substance Use Treatment: No Hx Depression: No Hx Physical Abuse: No Hx Emotional Abuse: No Hx Suspected Abuse: No - Female History Patient : No Family Medical History - Family History Mother Family History: Unknown Living Status: Cause of : uterine cancer Hx Cardiac Disease: Yes - dad Father Family History: Unknown Living Status: Cause of : hardening of arteries Physical Exam - Physical Exam General Appearance: Alert, Comfortable, No apparent distress Eye Exam: bilateral normal Ears, Nose, Throat: hearing grossly normal - he does wear hearing aids bilaterally, normal ENT inspection Neck: full range of motion, tender lateral, other - see history of present illness Respiratory: lungs clear, normal breath sounds, no respiratory distress, no accessory muscle use Cardiovascular/Chest: normal peripheral pulses, no edema, other - regular rate Peripheral Pulses: radial,right: 2+, radial,left: 2+, dorsalis pedis,right: 2+, dorsalis pedis,left: 2+ Gastrointestinal/Abdominal: non tender - spinal stimulator palpable, soft Rectal Exam: deferred Back Exam: no CVA tenderness - no increase over baseline Extremity: non-tender, no pedal edema, no calf tenderness, normal capillary refill 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 I do believe the patient does at least have a concussion from the fall. He needs to ambulate carefully to prevent further falls. It is comment to have some dizziness and headaches and mild nausea in the coming weeks. He needs to keep himself well hydrated. CT scan of the head and cervical spine showed no acute pathology. He needs to follow- up with his primary care doctor later this coming week. ER warnings are given for any worsening. Departure - Departure Clinical Impression: Concussion Qualifiers: Encounter type: initial encounter Loss of consciousness presence/duration: without LOC Qualified Code(s): S06.0X0A - Concussion without loss of consciousness, initial encounter Fall at home Qualifiers: Encounter type: initial encounter Qualified Code(s): W19.XXXA - Unspecified fall, initial encounter; Y92.009 - Unspecified place in unspecified non- institutional (private) residence as the place of occurrence of the external cause; Y92.009 - Unspecified place in unspecified non-institutional (private) residence as the place of occurrence of the external cause Disposition: Discharge to Home or Self Care Condition: Fair Departure Forms: ED Discharge - Pt. Copy, Patient Portal Self Enrollment Instructions: DI for Trauma, Concussion, Adult (DC) Diet: regular diet Activity: increase activity as tolerated Referrals: Cesar Edwards MD [Primary Care Provider] - 1-5 Days Home Medications: Ambulatory Orders Finasteride 5 mg PO DAILY 01/21/14 Gabapentin [Neurontin] 1,200 mg PO TID 01/21/14 Metoprolol Tartrate 50 mg PO BID 01/21/14 Sertraline HCl 100 mg PO BID 01/21/14 Simvastatin [Zocor] 40 mg PO BEDTIME 01/21/14 Tamsulosin HCl 0.4 mg PO BEDTIME 01/21/14 Ascorbic Acid [Vitamin C] 1,000 mg PO DAILY 05/18/17 Cetirizine HCl [All Day Allergy] 10 mg PO DAILY 05/18/17 Cinnamon 500 mg PO DAILY 05/18/17 Clonazepam 0.5 mg PO 0600,1200 05/18/17 Fluticasone Prop 0.05% Nasal [Flonase Nasal [place]] 50 mcg NA DAILY 05/18/17 Garlic [Odorless Garlic] 600 mg PO DAILY 05/18/17 Nitroglycerin 0.4 mg Tab [Nitrostat] 0.4 mg SL Q5MIN PRN 05/18/17 Polyethylene Glycol 3350 [Miralax] 1 tsp PO QD PRN 05/18/17 Potassium Chloride [Potassium Chloride ER] 20 meq PO DAILY 05/18/17 Sitagliptin-Metformin HCl [Janumet 50-1000 mg] 1 tab PO DAILY 05/18/17 Clonazepam 1 mg PO BEDTIME 10/09/17 Albuterol Inhaler [Ventolin Hfa Inhaler] 2 puff INH QID #1 inh 10/11/17 Aspirin [Aspirin EC Low Dose] 81 mg PO DAILY 04/07/18 Cranberry (Vaccinium Macrocarp [Theracran Hp For Kids] 50 mg PO DAILY 04/07/18 Cyanocobalamin [Vitamin B12] 500 mcg PO DAILY 04/07/18 Ferrous Sulfate 324 mg PO DAILY 04/07/18 Additional Instructions: the patient a 73-year-old male presented to emergency room after having tripped and fallen backwards. I do believe the patient does at least have a concussion from the fall. He needs to ambulate carefully to prevent further falls. It is comment to have some dizziness and headaches and mild nausea in the coming weeks. He needs to keep himself well hydrated. CT scan of the head and cervical spine showed no acute pathology. He needs to follow- up with his primary care doctor later this coming week. ER warnings are given for any worsening.
[2018-04-21 17:04] VITALS: BP 113/43; O2SAT 95
== END 2018-04-21 16:50 | disposition home or self-care (01) ==
LOC: ER 15:31
DX: S06.0X0A Concussion without loss of consciousness, initial encounter (principal); M54.2 Cervicalgia; M25.511 Pain in right shoulder; H81.09 Meniere's disease, unspecified ear; I25.2 Old myocardial infarction; I10 Essential (primary) hypertension; E11.9 Type 2 diabetes mellitus without complications; Z88.1 Allergy status to other antibiotic agents; Z88.6 Allergy status to analgesic agent; K21.9 Gastro-esophageal reflux disease without esophagitis; Z79.899 Other long term (current) drug therapy; Z79.82 Long term (current) use of aspirin; Z87.891 Personal history of nicotine dependence; W01.0XXA Fall on same level from slipping, tripping and stumbling without subsequent striking against object, initial encounter; Y92.007 Garden or yard of unspecified non-institutional (private) residence as the place of occurrence of the external cause

== ENCOUNTER → 2018-05-16 | Outpatient (CLI) | payer MEDICARE | LOC: GMAM 16:56 | PROVIDERS: ATTEND Family Medicine | DX: R06.02 Shortness of breath (principal) ==

== ENCOUNTER → 2018-05-18 | Outpatient (CLI) | payer OTHER ==
--- NOTE | 2018-05-18 15:25 | CT ---
EXAM DESCRIPTION: CTA Chest: Computed Tomography. CLINICAL HISTORY: SHORTNESS OF BREATH R60.02 COMPARISON: CT scan of the chest without contrast 04/02/2018. TECHNIQUE: Spiral-axial scans at 2.5 x 2.5 mm intervals through the pulmonary arteries and chest after bolus infusion of IV contrast. Lung algorithm _1.25 x 2.5-mm axial reconstructions. Coronal and sagittal 2.0 Mm reconstructions. 1015 mm PE oblique 3-D reformatted images. No adverse reactions. Total Exam DLP: 913.20 mGy-cm. This exam was performed according to our departmental CT dose-optimization program which includes automated exposure control, adjustment of the mA and/or kV according to patient size and/or use of iterative reconstruction technique; to reduce radiation dose to as low as reasonably achievable (ALARA). FINDINGS: Heart and great vessels: The quality of the enhancement of the pulmonary arterial system was diagnostic. The Pulmonary artery system from the main pulmonary artery to the bilateral subsegmental pulmonary artery branches are well demonstrated with IV contrast with no filling defects. The peripheral branches appear symmetric bilaterally with no asymmetric narrowing or distention. Minimal atherosclerotic calcification in the aortic arch and the descending aorta. Coronary artery calcifications are present. Lungs and airways: Bilateral emphysematous blebs are abutting the pleura in the apices. This is abutting minimal groundglass densities bilaterally with a 4 mm groundglass nodule in the medial aspect of the right apex on axial bone window sequence 5 image 31. Dependent atelectasis in the lateral base of the middle lobe, and bilateral posterior lung recesses of the lower lobes. Pleura: Posterior thickening versus small effusion on the left. Bilateral apical pleural thickening. No pneumothorax. Dagmar and mediastinum: Small lymph nodes in the mediastinum and hilum. No large soft tissue masses. Soft tissues of the neck base, axilla, and chest wall: Partial visualization of the thyroid which is unremarkable. Small bilateral axilla lymph nodes. Upper abdomen: normal size and enhancement of the included spleen, adrenal glands, liver, and pancreas. Stomach not distended. Gallbladder visualized. No free fluid or free air in the included peritoneal space. Osseous structures: Spondylosis at multiple levels. Arthrosis bilateral sternoclavicular joints. Arthrosis bilateral glenohumeral joints. No no blastic or lytic lesions. Upper thoracic levoscoliosis. IMPRESSION: 1. CTA of the pulmonary arteries showing no evidence of acute pulmonary embolus. Contrast demonstration of the pulmonary artery system was diagnostic. 2. Emphysematous changes in the bilateral upper lobes since the prior study. Possibly new 4 mm groundglass nodule abutting the medial apex of the right upper lobe, compared to prior study 03/23/2018. This may be due to different technique. Rad [facility] Best Practice recommendations following 2017 Fleischner Society recommendations is that no routine follow-up is recommended. Please see below.* 3. Arthrosis in some of the thoracic joints and thoracic spine spondylosis. Age-related changes in the thorax. * 2017 Fleischner Society Recommendations for Subsolid Lung Nodule Follow-Up based on size (average of long- and short-axis diameters). Use most suspicious nodule for followup. Single <6 mm Ground glass: No routine follow-up <6 mm Part solid: No routine follow-up Electronically signed by: Taurus Duval MD 05/18/2018 3:24 PM CDT
== END ==
LOC: CT 09:56
PROVIDERS: ATTEND Family Medicine
DX: R06.02 Shortness of breath (principal); M47.814 Spondylosis without myelopathy or radiculopathy, thoracic region

== ENCOUNTER 2018-05-30 08:02 | Observation (INO) | payer MEDICARE, OTHER ==
--- NOTE | 2018-05-30 08:35 | ED.PDOC ---
History of Present Illness - General Chief Complaint: General Stated Complaint: Weakness, generalized aches Time Seen by Provider: 05/30/18 08:31 Source: patient, RN notes reviewed, Vital Signs reviewed Exam Limitations: no limitations - History of Present Illness Initial Comments: THIS PATIENT COMES TO THE ED WITH ACUTE ONSET OF MYALGIAS, MALAISE, NOT FEELING WELL AND WEAKNESS. HE HAS DIABETES AND VOICES THAT HE FREQUENTLY SELF CATH AND THAT IN THE RECENT PAST IT SEEMS MORE DIFFICULT TO DO SO. DENIES ANY FEVER, CHILLS, SHAKES, DYSURIA, VOMITING , DIARRHEA, ABDOMINAL PAIN OR CHEST PAINS. Timing/Duration: 1-3 hours Severity: moderate Improving Factors: nothing Worsening Factors: nothing Associated Symptoms: denies symptoms Allergies/Adverse Reactions: Allergies Ibuprofen Allergy (Mild, Verified 05/30/18 08:19) Rash Levofloxacin [From Levaquin] Allergy (Verified 05/30/18 08:19) Unknown Home Medications: Ambulatory Orders Finasteride 5 mg PO DAILY 01/21/14 Gabapentin [Neurontin] 1,200 mg PO TID 01/21/14 Metoprolol Tartrate 50 mg PO BID 01/21/14 Sertraline HCl 100 mg PO BID 01/21/14 Simvastatin [Zocor] 40 mg PO BEDTIME 01/21/14 Tamsulosin HCl 0.4 mg PO BEDTIME 01/21/14 Cetirizine HCl [All Day Allergy] 10 mg PO DAILY 05/18/17 Cinnamon 500 mg PO DAILY 05/18/17 Clonazepam 0.5 mg PO 0600,1200 05/18/17 Fluticasone Prop 0.05% Nasal [Flonase Nasal [place]] 50 mcg NA DAILY 05/18/17 Nitroglycerin 0.4 mg Tab [Nitrostat] 0.4 mg SL Q5MIN PRN 05/18/17 Polyethylene Glycol 3350 [Miralax] 1 tsp PO QD PRN 05/18/17 Potassium Chloride [Potassium Chloride ER] 20 meq PO DAILY 05/18/17 Sitagliptin-Metformin HCl [Janumet 50-1000 mg] 1 tab PO DAILY 05/18/17 Clonazepam 1 mg PO BEDTIME 10/09/17 Aspirin [Aspirin EC Low Dose] 81 mg PO DAILY 04/07/18 Review of Systems - Review of Systems Constitutional: States: malaise, weakness EENTM: States: no symptoms reported Respiratory: States: no symptoms reported Cardiology: States: no symptoms reported Gastrointestinal/Abdominal: States: no symptoms reported Genitourinary: States: dysuria Musculoskeletal: States: no symptoms reported Skin: States: no symptoms reported Neurological: States: no symptoms reported Endocrine: States: no symptoms reported Hematologic/Lymphatic: States: no symptoms reported Past Medical History (General) - Patient Medical History Hx Seizures: No Hx Stroke: No Hx Dementia: No Hx Asthma: No Hx of COPD: No Hx Cardiac Disorders: Yes - [place] Hx Congestive Heart Failure: No Hx Pacemaker: No Hx Hypertension: Yes Hx Thyroid Disease: No Hx Diabetes: Yes - Has neuropathy Hx Gastroesophageal Reflux: Yes Hx Renal Disease: No Hx Cancer: No Hx of HIV: No Hx Hepatitis C: No Hx MRSA: No - Vaccination History Hx Tetanus, Diphtheria Vaccination: Yes Hx Influenza Vaccination: Yes - 2018 Hx Pneumococcal Vaccination: Yes - Social History Hx Tobacco Use: No Hx Chewing Tobacco Use: No Hx Alcohol Use: Yes Hx Substance Use: No Hx Substance Use Treatment: No Hx Depression: No Hx Physical Abuse: No Hx Emotional Abuse: No Hx Suspected Abuse: No - Female History Patient : No Family Medical History - Family History Mother Family History: Unknown Living Status: Cause of : uterine cancer Hx Cardiac Disease: Yes - dad Father Family History: Unknown Living Status: Cause of : hardening of arteries Physical Exam - Physical Exam General Appearance: Alert, Well Developed, Well Groomed, Well Hydrated Eye Exam: bilateral normal Ears, Nose, Throat: hearing grossly normal, normal ENT inspection Neck: non-tender, full range of motion, supple, normal inspection Respiratory: chest non-tender, lungs clear, normal breath sounds, no respiratory distress, no accessory muscle use Cardiovascular/Chest: normal peripheral pulses, regular rate, rhythm, no edema, no gallop, no JVD, no murmur Peripheral Pulses: radial,right: 2+, radial,left: 2+ Gastrointestinal/Abdominal: normal bowel sounds, non tender, soft, no organomegaly, no pulsatile mass Rectal Exam: deferred Back Exam: normal inspection Extremity: normal range of motion, non-tender Neurologic: no motor/sensory deficits, alert, oriented x 3 Skin Exam: normal color Lymphatic: no adenopathy Progress - Progress Progress: 05/30/18 12:09 THE LABORATORY AND IMAGING IS REPORTED. CBC & CMP ARE NORMAL. THE UA W/O INFECTION. INFLUENZA SCREEN NEGATIVE AND THE CXR W/O ACUTE PROCESS. EKG IS NORMAL. THE PATIENT HAS BEEN SLEEPING SINCE HE GOT HERE. HE IS ABLE TO AMBULATE. VOICES STILL FEELS WEAK. - Results/Orders Results/Orders: chest x-ray is negative for acute process EKG: HR OF 85, CT INTERVAL OF 142, QRS OF 94, QTC OF 422, AXES OF 32 DEGREES. IMPRESSION: NORMAL SINUS RHYTHM, NO ACUTE INJURY PATTERN 05/30/18 08:45 EKG STAT Laboratory Results WBC 7.4 K/mm3 (4.8-10.8) 05/30/18 08:51 RBC 4.35 M/mm3 (4.70-6.10) L 05/30/18 08:51 Hgb 12.1 gm/dL (14.0-18.0) L 05/30/18 08:51 Hct 36.7 % (42.0-52.0) L 05/30/18 08:51 MCV 84.3 fl (80.0-94.0) 05/30/18 08:51 MCH 27.8 pg (27.0-31.0) 05/30/18 08:51 MCHC 32.9 g/dL (33.0-37.0) L 05/30/18 08:51 RDW 15.0 % (11.5-14.5) H 05/30/18 08:51 Plt Count 231 K/mm3 (130-400) 05/30/18 08:51 MPV 8.3 fl (7.40-10.4) 05/30/18 08:51 Absolute Neuts (auto) 4.60 K/uL (1.8-6.8) 05/30/18 08:51 Absolute Lymphs (auto) 2.10 K/uL (1.0-3.4) 05/30/18 08:51 Absolute Monos (auto) 0.60 K/uL (0.2-0.8) 05/30/18 08:51 Absolute Eos (auto) 0.20 K/uL (0.0-0.4) 05/30/18 08:51 Absolute Basos (auto) 0.10 K/uL (0.0-0.1) 05/30/18 08:51 Neutrophils % 61.9 % (42.0-78.0) 05/30/18 08:51 Lymphocytes % 27.7 % (20.0-50.0) 05/30/18 08:51 Monocytes % 7.5 % (2.0-9.0) 05/30/18 08:51 Eosinophils % 2.2 % (1.0-5.0) 05/30/18 08:51 Basophils % 0.7 % (0.0-2.0) 05/30/18 08:51 Sodium 138 mmol/L (135-145) 05/30/18 08:51 Potassium 3.9 mmol/L (3.6-5.0) 05/30/18 08:51 Chloride 104 mmol/L (101-111) 05/30/18 08:51 Carbon Dioxide 26 mmol/L (21-31) 05/30/18 08:51 Anion Gap 11.9 (12-18) L 05/30/18 08:51 BUN 18 mg/dL (7-18) 05/30/18 08:51 Creatinine 0.75 mg/dL (0.6-1.3) 05/30/18 08:51 BUN/Creatinine Ratio 24.0 (10-20) H 05/30/18 08:51 Random Glucose 166 mg/dL (70-105) H 05/30/18 08:51 Serum Osmolality 281.3 mOsm/L (275-295) 05/30/18 08:51 Calcium 8.9 mg/dL (8.4-10.2) 05/30/18 08:51 Total Bilirubin 0.5 mg/dL (0.2-1.0) 05/30/18 08:51 AST 32 IU/L (10-42) 05/30/18 08:51 ALT 28 IU/L (10-60) 05/30/18 08:51 Alkaline Phosphatase 70 IU/L (42-121) 05/30/18 08:51 Serum Total Protein 6.9 gm/dL (6.4-8.2) 05/30/18 08:51 Albumin 4.1 g/dl (3.2-5.5) 05/30/18 08:51 Globulin 2.8 gm/dL (2.3-3.5) 05/30/18 08:51 Albumin/Globulin Ratio 1.5 (1.1-1.9) 05/30/18 08:51 Urine Color Yellow (Yellow) 05/30/18 11:00 Urine Appearance Clear (Clear) 05/30/18 11:00 Urine pH 6.0 (4.5-7.8) 05/30/18 11:00 Ur Specific [place] 1.020 (1.005-1.030) 05/30/18 11:00 Urine Protein Negative mg/dL 05/30/18 11:00 Urine Glucose (UA) Negative mg/dL (Negative) 05/30/18 11:00 Urine Ketones Negative mg/dL (NEGATIVE) 05/30/18 11:00 Urine Blood Negative (Negative) 05/30/18 11:00 Urine Nitrite Negative 05/30/18 11:00 Urine Bilirubin Negative (NEGATIVE) 05/30/18 11:00 Urine Urobilinogen 0.2 mg/dL (0.2-1.0) 05/30/18 11:00 Ur Leukocyte Esterase Negative (Negative) 05/30/18 11:00 Urine RBC 0 /hpf 05/30/18 11:00 Urine WBC 0 /hpf 05/30/18 11:00 Ur Epithelial Cells 0 /hpf 05/30/18 11:00 Urine Bacteria 0 05/30/18 11:00 INFLUENZA PANEL-NEGATIVE. Departure - Departure Clinical Impression: Weakness, Generalized pain Time of Disposition: 12:52 Disposition: Admit Patient Condition: Fair Departure Forms: ED Discharge - Pt. Copy, Patient Portal Self Enrollment Referrals: Cesar Edwards MD [Primary Care Provider] - 1-2 Weeks Home Medications: Ambulatory Orders Finasteride 5 mg PO DAILY 01/21/14 Gabapentin [Neurontin] 1,200 mg PO TID 01/21/14 Metoprolol Tartrate 50 mg PO BID 01/21/14 Sertraline HCl 100 mg PO BID 01/21/14 Simvastatin [Zocor] 40 mg PO BEDTIME 01/21/14 Tamsulosin HCl 0.4 mg PO BEDTIME 01/21/14 Cetirizine HCl [All Day Allergy] 10 mg PO DAILY 05/18/17 Cinnamon 500 mg PO DAILY 05/18/17 Clonazepam 0.5 mg PO 0600,1200 05/18/17 Fluticasone Prop 0.05% Nasal [Flonase Nasal [place]] 50 mcg NA DAILY 05/18/17 Nitroglycerin 0.4 mg Tab [Nitrostat] 0.4 mg SL Q5MIN PRN 05/18/17 Polyethylene Glycol 3350 [Miralax] 1 tsp PO QD PRN 05/18/17 Potassium Chloride [Potassium Chloride ER] 20 meq PO DAILY 05/18/17 Sitagliptin-Metformin HCl [Janumet 50-1000 mg] 1 tab PO DAILY 05/18/17 Clonazepam 1 mg PO BEDTIME 10/09/17 Aspirin [Aspirin EC Low Dose] 81 mg PO DAILY 04/07/18 Decision To Admit - Decistion To Admit Decision to Admit Reason: Admit from ER Decision to Admit Date: 05/30/18 - weakness Decision to Admit Time: 12:51
--- NOTE | 2018-05-30 09:02 | RAD ---
EXAM DESCRIPTION: Chest,1 View CLINICAL HISTORY: sob COMPARISON: April 07, 2018 IMPRESSION: Single AP portable upright view of the chest shows cardiac silhouette and pulmonary vasculature to be within normal limits. Lungs are normally aerated and clear. No obvious pleural effusion or pneumothorax is seen. Electronically signed by: Kvng Du MD 05/30/2018 9:00 AM DIRECTOR OF ANNUAL GIVING
[2018-05-30] MEDS: SODIUM CHLORIDE 0.9% 1000ML 1,000 ML IVS PRN ×2 (13:36→20:31)
--- NOTE | 2018-05-30 13:57 | HP ---
SUPERVISING PHYSICIAN: Cesar Edwards M.D. CHIEF COMPLAINT: Generalized weakness. HISTORY OF PRESENT ILLNESS: Mr. Fletcher is a 73 year-old male patient that presented to the Emergency Department at the request of Dr. Edwards today. The patient notes that he had gone to [place] for a colonoscopy workup and returned home yesterday, and then apparently went to bed and this morning was awakened lying on the floor by his son and he has no recall of being on the floor at that time. He also notes that he was incontinent through the night. He does have a pain pump that he can control with a remote control to increase p.r.n. doses and is unsure if he used it last night. He denies any falls, any trauma, any headaches. He just feels very exhausted. He went to Dr. Edwards's office this morning and Dr. Edwards knows the patient very well and noted that the patient did not seem to be himself, therefore he was referred to the Emergency Department. In the Emergency Department, laboratory studies showed he had normal white count without any shift. Chemistry showed basically normal electrolytes, liver, and blood sugar was 166. Urinalysis showed to be within normal limits. He does have a history of chronic urinary retention for which he uses self catheterization at least 3 times a day. Vital signs showed that he was afebrile with initial temperature of 98.8, pulse 60, blood pressure 109/54, respirations 20, satting 100% on room air. Dr. Hernández, E. R. physician, requested that after the request of Dr. Edwards, the patient be placed in observation overnight for further monitoring for the general malaise and concern of possible self administration of morphine from the pain pump exacerbated by his other pain management regimen to include Clonidine and Gabapentin. He also was noted that he was in the E. R. A review of his charts was noted that he was seen in the E. R. on 04/21/18 with a fall but was found to have just a concussion and no other acute injuries. The patient is going to be placed in observation now for further close monitoring and further evaluation. PAST MEDICAL HISTORY: 1. Chronic urinary retention utilizing self catheterization 3 times a day. 2. Anxiety and depression. 3. Benign prostatic hypertrophy. 4. Coronary artery disease with history of myocardial infarctions times 2. 5. Osteoarthritis. 6. Hyperlipidemia. 7. Hypertension. 8. Obstructive sleep apnea. 9. Diabetes. 10. Chronic obstructive pulmonary disease. PAST SURGICAL HISTORY: 1. Transurethral resection of the prostate. 2. Cardiac catheterization. 3. Pain pump insertion. 4. Right hand surgery. HOME MEDICATIONS: 1. Flomax 0.4 mg at bedtime. 2. Janumet 1 tablet daily. 3. Zocor 40 mg at bedtime. 4. Sertraline 100 mg b.i.d. 5. Potassium chloride 20 mEq daily. 6. MiraLAX 1 teaspoon daily as needed. 7. Nitrostat 0.4 mg sublingual as needed. 8. Metoprolol tartrate 50 mg b.i.d. 9. Gabapentin 1200 mg t.i.d. 10. Nasonex 50 mcg each nostril daily. 11. Finasteride 5 mg daily,. 12. Clonazepam 1 mg at bedtime. 13. Clonazepam 0.5 mg 0600 and 1200. 14. Cinnamon 500 mg daily. 15. Cetirizine 10 mg daily. 16. Aspirin 81 mg daily. 17. Pain pump with morphine, uncertain concentration. ALLERGIES: IBUPROFEN AND LEVOFLOXACIN. FAMILY HISTORY: Noncontributory. SOCIAL HISTORY: The patient has a history of heavy alcohol use as well as smoking but quit both 20 years previously. REVIEW OF SYSTEMS: Denies any fever or chills, recent weight loss or weight gain. Notable malaise and overall weakness as noted in History of Present Illness. HEENT: No headaches, vision changes, ear pain, nasal congestion or sore throat. RESPIRATORY: Denies any coughing, shortness of breath, wheezing. CARDIOVASCULAR: Denies any chest pains, palpitations or peripheral edema. GASTROINTESTINAL: Denies any nausea, vomiting, diarrhea, constipation or abdominal pains. GENITOURINARY: No dysuria but does utilize self catheterization for chronic urinary retention. MUSCULOSKELETAL: No muscle cramps, joint pain. He does have chronic back pain which he utilizes a pain pump. NEUROLOGIC: Noted some dizziness but no headaches or paresthesia. HEMATOLOGIC: Denies any easy bruising or swollen lymph glands. ENDOCRINE: No polydipsia, polyuria or polyphagia. No heat or cold intolerance. INTEGUMENT: No rashes, lesions or wounds. PHYSICAL EXAMINATION: VITAL SIGNS: Temperature on admission was 98.8, pulse 60, blood pressure 109/54 , respirations 20, satting 100% on room air. Admission weight 104.3 kg. GENERAL: On admission to the Medical/Surgical floor, the patient was tired in appearance and was slow to respond to questions. Seemed to be very drowsy but he was arousable. Answered questions appropriately and appeared to be in no acute distress. Well hydrated, well nourished. HEENT: Tympanic membranes were clear bilaterally. Oropharynx was pink and moist without any lesions. NECK: Supple, non-tender with full range of motion. No jugular venous distention. CHEST: Lung sounds were clear to auscultation bilaterally without any rhonchi, wheezing or rales. CARDIOVASCULAR: Regular rate and rhythm without appreciable murmurs, gallops, or rubs. ABDOMEN: Obese but soft with positive bowel sounds. No tenderness to palpation. GENITOURINARY: Deferred as he does self catheterization. EXTREMITIES: There is no edema, clubbing or cyanosis. Pulses were 2+ bilaterally. NEUROLOGIC: The patient was drowsy but alert, easily aroused. Answered questions appropriately. Moved all extremities ad juan. Was oriented. Facial features were symmetrical. There were no focal deficits noted. Cranial nerves II-XII are grossly intact. LABORATORY: White count 7,400, hemoglobin 12.1, hematocrit 36.7, platelet count 231,000. Differential showed to be without a left shift. Chemistries showed normal electrolytes, BUN 18, creatinine 0.75, glucose 166. Liver functions all showed to be within normal limits. Urinalysis was within normal limits. MICROBIOLOGY: Flu for A and B by PCR was negative for both A and B. RADIOLOGY: Chest x-ray in the Emergency Department prior to admission per radiology interpretation showed portable chest no consolidations, pleural effusions or pneumothorax seen. He had a CT of the head after admission without contrast and per radiology interpretation showed no acute intracranial abnormalities and no change from previous exam on 04/21/18. ASSESSMENT: 1. General malaise, uncertain etiology, possibly secondary to pain pump administration of self medications in combination with Gabapentin and Clonidine. 2. Diabetes mellitus type 2 on oral therapy. 3. History of hypertension. 4. History of obstructive sleep apnea. 5. History of coronary artery disease. 6. Chronic back pain utilizing pain pump. 7. History of benign prostatic hypertrophy with chronic urinary retention utilizing self catheterization 3 times daily with no evidence of urinary tract infection on admission. PLAN: The patient is going to be placed in observation tonight for close neurologic observation. I am going to hold his Clonidine and Gabapentin tonight , and reevaluate in the morning. There is concern possibly maybe he self administered a dose of morphine having just recently had the pain pump filled within the last month and may have gotten sedated somewhat from the morphine. Will touch base with his pain management doctor. Will closely monitor neurologically and anticipate probably discharging tomorrow. Again, reevaluate in the morning clinically and if he can transition back to outpatient management , will discharge to followup with Dr. Edwards. Until then will continue to monitor and treat as needed. #[id number] MTDD
[2018-05-30] MEDS ORDERED: ACETAMINOPHEN 325 MG TAB PO PRN (15:15)
[2018-05-30] MEDS ORDERED: SODIUM CHLORIDE 0.9% (FLUSH) 10 ML SYG IV PRN (15:15)
[2018-05-30] MEDS ORDERED: ONDANSETRON INJ 4 MG/2 ML VIAL IV PRN (15:15)
[2018-05-30] MEDS ORDERED: IV SET AND CAP CHANGE INJ INJ SCH (15:30)
[2018-05-30] MEDS ORDERED: METOPROLOL TARTRATE 25 MG TAB ONE (19:33)
--- NOTE | 2018-05-30 20:20 | CT ---
EXAM DESCRIPTION: Head CLINICAL HISTORY: Syncope; GARCIA COMPARISON: April 21, 2018 Technique: Contiguous axial images of the brain were obtained without the administration of intravenous contrast. Coronal and sagittal reformats obtained and reviewed. This exam was performed according to our departmental dose-optimization program which includes use of Automated Exposure Control, adjustment of the mA and/or kV according to patient size and/or use of iterative reconstruction technique. Findings: Brain: Mild cerebral atrophy. Periventricular and deep white matter hypodensities, most commonly due to nonspecific white matter chronic microvascular ischemia.No hemorrhage. No territorial infarct. No mass effect. No herniation. Ventricles: Within normal limits for patient's age. Bones: No acute osseous abnormality. Left mastoid/occipital skull postsurgical changes. Paranasal sinuses: Unremarkable. Mastoid air cells: Unremarkable. Soft tissues: No acute abnormality. IMPRESSION: No acute intracranial abnormalities. No change from prior.Unchanged chronic findings as described. Electronically signed by: Morgan Alexander MD 05/30/2018 8:18 PM [facility]
[2018-05-30] MEDS: SERTRALINE HCL 50 MG TAB PO SCH (20:46)
[2018-05-30] MEDS: METOPROLOL TARTRATE 50 MG TAB PO SCH (20:47)
[2018-05-30] MEDS ORDERED: SIMVASTATIN 20 MG TAB PO SCH (21:00)
[2018-05-30] MEDS ORDERED: NON-FORMULARY MEDICATION 1 EA MIS (Metoprolol Tartrate [Metoprolol Tartrate] 50 MG) PO SCH (21:00)
[2018-05-30] MEDS ORDERED: TAMSULOSIN 0.4 MG CAP PO SCH (21:00)
[2018-05-30] MEDS ORDERED: CLONAZEPAM 1 MG PO SCH (21:00)
[2018-05-30] MEDS ORDERED: NON-FORMULARY MEDICATION 1 EA MIS (Simvastatin [Zocor] 40 MG) PO SCH (21:00)
[2018-05-30] MEDS ORDERED: NON-FORMULARY MEDICATION 1 EA MIS (Sertraline Hcl [Sertraline Hcl] 100 MG) PO SCH (21:00)
[2018-05-31] MEDS: SODIUM CHLORIDE 0.9% 1000ML 1,000 ML IVS PRN (03:26)
[2018-05-31] MEDS ORDERED: CLONAZEPAM 0.5 MG PO SCH (06:00)
[2018-05-31] MEDS ORDERED: ENOXAPARIN SODIUM 40 MG/0.4 ML SYG SUBCU SCH (09:00)
[2018-05-31] MEDS ORDERED: metFORMIN HCL 500 MG TAB PO SCH (09:00)
[2018-05-31] MEDS ORDERED: [UNRECOGNIZED DRUG - REMARK] PO SCH (09:00)
[2018-05-31] MEDS ORDERED: SITagliptin 50 MG TAB PO SCH (09:00)
[2018-05-31] MEDS ORDERED: NON-FORMULARY MEDICATION 1 EA MIS (Sitagliptin-Metformin Hcl [Janumet 50-1000 Mg] 1 TAB) PO SCH (09:00)
[2018-05-31] MEDS ORDERED: FINASTERIDE 5 MG TAB PO SCH (09:00)
[2018-05-31] MEDS ORDERED: POTASSIUM CHLORIDE 10 MEQ TAB PO SCH (09:00)
[2018-05-31] MEDS ORDERED: FLUTICASONE PROP 0.05% NASAL 16 GM BTTL BNAS SCH (09:00)
[2018-05-31] MEDS ORDERED: NON-FORMULARY MEDICATION 1 EA MIS (Fluticasone Prop 0.05% Nasal [Flonase Nasal Spray] 50 M SCH (09:00)
[2018-05-31] MEDS ORDERED: CETIRIZINE HCL 10 MG TAB PO SCH (09:00)
[2018-05-31] MEDS ORDERED: ASPIRIN (ENTERIC COATED) 81 MG TAB PO SCH (09:00)
[2018-05-31] MEDS: SERTRALINE HCL 50 MG TAB PO SCH (09:53)
[2018-05-31] MEDS: METOPROLOL TARTRATE 50 MG TAB PO SCH (09:53)
[2018-05-31 10:23] VITALS: BP 150/69; TEMP 98.2; O2SAT 98
== END 2018-05-31 10:30 | disposition home or self-care (01) ==
LOC: ER 08:02 → MS 13:56
PROVIDERS: ADMIT Nurse Practitioner Family; ATTEND Nurse Practitioner Family
DX: G89.29 Other chronic pain (principal); R53.1 Weakness; R53.81 Other malaise; E11.40 Type 2 diabetes mellitus with diabetic neuropathy, unspecified; I10 Essential (primary) hypertension; G47.33 Obstructive sleep apnea (adult) (pediatric); I25.10 Atherosclerotic heart disease of native coronary artery without angina pectoris; N40.1 Benign prostatic hyperplasia with lower urinary tract symptoms; R33.8 Other retention of urine; R51 Headache; E78.5 Hyperlipidemia, unspecified; J44.9 Chronic obstructive pulmonary disease, unspecified; I25.2 Old myocardial infarction; M19.90 Unspecified osteoarthritis, unspecified site; K21.9 Gastro-esophageal reflux disease without esophagitis; Z95.828 Presence of other vascular implants and grafts; Z79.891 Long term (current) use of opiate analgesic; Z79.84 Long term (current) use of oral hypoglycemic drugs; Z79.82 Long term (current) use of aspirin; Z79.899 Other long term (current) drug therapy; Z88.1 Allergy status to other antibiotic agents; Z88.6 Allergy status to analgesic agent; Z87.891 Personal history of nicotine dependence
CPT/HCPCS: 96360; 96361 ×2; 96372; J7030 ×3; J1650; 80053; 36415; 81001; 85025; 71045; 70450; 94760 ×3; 99285; 93005; G0378; 87502

== ENCOUNTER → 2018-07-24 | Outpatient (CLI) | payer OTHER, MEDICARE ==
--- NOTE | 2018-07-24 14:12 | CT ---
EXAM DESCRIPTION: Chest w/o Contrast : Computed Tomography. CLINICAL HISTORY: 73 years Male MULTIPLE NODULES OF LUNG COMPARISON: CT scan of the chest without contrast 03/23/2018. TECHNIQUE: Spiral-axial scans at 5 x 5 mm intervals through the lungs and thorax without IV contrast. 2.5 x 5 mm lung algorithm axial reconstructions. Coronal and sagittal 2.0 Mm reconstructions. Total Exam DLP: 801.68 mGy-cm. This exam was performed according to our departmental dose-optimization program which includes automated exposure control, adjustment of the mA and/or kV according to patient size and/or use of iterative reconstruction technique; to reduce radiation dose to as low as reasonably achievable (ALARA). Nodule measurements under 10 mm are given as mean value of 3 axes diameters. FINDINGS: Lungs and large airways: Groundglass nodule again seen posterior segment right upper lobe axial Series 4, images 52-57. 10.4 x 9.7 mm. Circumscribed minimally lobulated margins with no spiculation. Smaller groundglass nodule 4 mm diameter superior to the larger nodule, image 50 and 51, not well seen on the prior study. Scattered small groundglass densities, less than 4 mm diameter, bilaterally. Pleural spaces: Scattered blebs and bulla bilaterally predominantly above the hilum. No effusion bilaterally or pneumothorax.. Mediastinum and Adgmar: Evaluation limited due to lack of IV contrast. Small lymph nodes and no large soft tissue masses. Stable since the prior study. Great vessels and Heart: Evaluation limited due to lack of IV contrast. Atherosclerotic calcifications aortic arch, coronary arteries and descending thoracic aorta. Also at the ostia of the brachiocephalic vessels. Stable since the prior study. Soft tissues of neck base, axillae, and chest wall: Evaluation limited due to lack of IV contrast. Small lymph nodes stable since the prior study. Upper abdomen: Negative. Osseous structures: Spondylosis at multiple levels of the thoracic spine, and lower cervical spine. Arthrosis bilateral sternoclavicular joints. Moderate arthrosis bilateral glenohumeral joints. No lytic or blastic lesions. IMPRESSION: 1. Groundglass nodule in the posterior segment of the right upper lobe, 10 mm diameter, is stable since the prior study March 2017. New 4 mm groundglass nodule abutting the superior aspect of the 10 mm nodule. Recommend six-month follow-up according to [facility] [employer] Best Practice recommendations following 2017 Fleischner Society recommendations. Please see below*. 2. Remainder the study is unremarkable. *2017 Fleischner Society Recommendations for Subsolid Lung Nodule Follow-Up based on size (average of long- and short-axis diameters). Use most suspicious nodule for followup. Single > or = 6 mm Ground glass: CT at 6-12 months to confirm persistence, then CT every 2 years until 5 years > or = 6 mm Part solid: CT at 3-6 months to confirm persistence, If unchanged and solid component remains<6mm, annual CT should be performed for 5 years. Electronically signed by: Tuarus Duval MD 07/24/2018 12:[address] [facility]
== END ==
LOC: CT 09:00
PROVIDERS: ATTEND Internal Medicine
DX: J98.4 Other disorders of lung (principal); R91.8 Other nonspecific abnormal finding of lung field

== ENCOUNTER → 2018-08-07 | Outpatient (CLI) | payer MEDICARE | LOC: LAB.O 16:21 | PROVIDERS: ATTEND Nurse Practitioner Family | DX: N30.00 Acute cystitis without hematuria (principal) ==

== ENCOUNTER → 2018-09-05 | Outpatient (CLI) | payer MEDICARE ==
--- NOTE | 2018-09-06 08:46 | CT ---
EXAM DESCRIPTION: Abdomen w/o Contrast CLINICAL HISTORY: ABDOMEN TENDERNESS COMPARISON: None. TECHNIQUE: Spiral-axial scans at 2.5 x 2.5 mm intervals through the abdomen. Coronal and sagittal 2.0 mm reconstructions. No IV or oral contrast. Total DLP: 1074.5 mGy - m2. This exam was performed according to our departmental dose-optimization program which includes automated exposure control, adjustment of the mA and/or kV according to patient size and/or use of iterative reconstruction technique; to reduce radiation dose to as low as reasonably achievable (ALARA). FINDINGS: Lung bases and pleura: Atelectasis or small pleural parenchymal scars inferior right middle lobe and inferior lingula. No pleural effusion. Upper Abdominal organs: No radiodense object in the distal stomach may represent medication. Solid organs are negative. Pancreas/Gallbladder/Ducts: Gallbladder visualized. Normal size of the duct. Pancreas unremarkable. Kidneys: Bilateral pararenal fascial thickening is symmetric. Circumscribed 1.2 cm mass projecting from the posterior cortex of the left kidney with Hounsfield density +49 but no calcifications. Stable since the prior study. No hydronephrosis or radiodense stones bilaterally. The included ureters are unremarkable. Right kidney larger than left kidney but unchanged. Mesentery: Unremarkable. Aorta: Minimal atherosclerotic calcification around the origin of the SMA and also infrarenal aorta and bilateral common iliacs. No perinephric mass. Small Bowel: Unremarkable. Terminal Ileum/Cecum: Negative. Normal caliber appendix. Normal surrounding fatty density. Colon: Diffuse fecal material throughout the colon. Distal sigmoid and rectum are not included on the examination. Spine: Advanced spondylosis L5-S1 with bulging disc and significant canal and foraminal narrowing. Stable since the prior study. Correlate for L5 radiculopathy. Abdominal Wall/Back Soft Tissues: Electronic device lower lateral right abdominal wall. Dorsal column stimulator electrode at T12 right of midline. Stable since prior study. IMPRESSION: 1. No organomegaly. No free air or free fluid. 2. 1.1 to 1.2 mm circumscribed dense mass projecting from the left kidney may represent a milk of calcium or proteinaceous cyst. Stable since the prior study. 3. Constipation involving most of the colon which has progressed since the prior study. 4. Advanced spondylosis L5-S1 with significant foraminal and canal narrowing at this level. No change since the prior study. Correlate for L5 radiculopathy. Electronically signed by: Taurus Duval MD 09/06/2018 8:43 AM [facility]
== END ==
LOC: LAB.O 10:49
PROVIDERS: ATTEND Nurse Practitioner Family
DX: R10.817 Generalized abdominal tenderness (principal); N28.89 Other specified disorders of kidney and ureter; K59.00 Constipation, unspecified; M47.897 Other spondylosis, lumbosacral region

== ENCOUNTER → 2018-12-28 | Outpatient (CLI) | payer OTHER ==
--- NOTE | 2018-12-30 11:32 | RAD ---
EXAM: Abdomen Series CLINICAL HISTORY: GEN ABD PN COMPARISON STUDY: None TECHNICAL: Flat and upright views of the abdomen with chest xray. FINDINGS: There is no bowel obstruction. There is no free air. There are no abnormal calcifications. There are mild diffuse degenerative changes of the lumbar spine. There is a large amount of stool throughout the colon. The chest xray shows no acute abnormality. The heart is not enlarged. IMPRESSION: THE AMOUNT OF STOOL SUGGESTS CONSTIPATION. Electronically signed by: Romario Tabor MD 12/30/2018 11:30 AM CDT
== END ==
LOC: LAB.O 14:41
PROVIDERS: ATTEND Nurse Practitioner Family
DX: R10.84 Generalized abdominal pain (principal)

== ENCOUNTER 2019-02-28 18:48 | Emergency (ER) | payer OTHER ==
[2019-02-28 19:25] VITALS: O2SAT 98
[2019-02-28] MEDS ORDERED: SODIUM CHLORIDE 0.9% 1000ML 1,000 ML ONE (19:51)
[2019-02-28] MEDS ORDERED: SODIUM CHLORIDE 0.9% 1000ML 1,000 ML IVS ONE (19:57)
[2019-02-28] MEDS ORDERED: ONDANSETRON INJ 4 MG/2 ML VIAL IV ONE (20:35)
--- NOTE | 2019-02-28 21:44 | CT ---
NONCONTRAST ABDOMEN AND PELVIC CT EXAMINATION. HISTORY: Diffuse abdominal pain. COMPARISONS: Compared to the abdomen and pelvic CT examination performed September 05, 2018. PROCEDURE: Using helical technique, thin section axial images were performed through the abdomen and pelvis without the administration of intravenous or oral contrast material. FINDINGS: 1.5 cm hyperdense exophytic nodule in the dorsal mid left kidney. The adrenal glands, kidneys, renal collecting systems, ureters and urinary bladder are otherwise grossly normal on this noncontrast examination. No evidence of appendicitis, diverticulitis, inflammatory bowel disease, bowel obstruction, extraluminal bowel gas or retroperitoneal hemorrhage. No ascites, free pelvic fluid or evidence of intra-abdominal abscess on this noncontrast examination. The fluid-filled gallbladder is grossly normal. The liver, spleen, pancreas, stomach and duodenum are grossly normal on this noncontrast examination. Moderate atherosclerotic calcification in the abdominal aorta without aneurysm. Greatest AP diameter of the infrarenal abdominal aorta measures 1.9 cm. History of remote prostate surgery. Partially visualized aortic valve annular calcification versus coronary artery calcification. Bibasilar scar versus atelectasis. Lung bases are otherwise clear. Bilateral L5 spondylolysis with 3 mm L5/S1 spondylolisthesis. Multilevel degenerative disease throughout the visualized spine. No compression fractures or evidence of metastatic disease to the bones. Degenerative fusion of the superior sacroiliac joints. IMPRESSION: 1. 1.5 mm dense exophytic nodule in the dorsal mid left kidney. Further follow-up via abdomen and pelvic postcontrast CT versus MRI is recommended for further evaluation. 2. No calcified urolithiasis, urinary system obstruction or evidence of pyelonephritis. 3. Bilateral L5 spondylolysis with 3 mm L5/S1 spondylolisthesis causing significant degenerative bilateral neuroforaminal stenosis at the L5/S1 level. If clinical concern persists, post intravenous contrast and post oral contrast abdomen and pelvic CT examination should be performed for further evaluation. This exam was performed according to our departmental dose-optimization program, which includes automated exposure control, adjustment of the mA and/or kV according to patient size and/or use of iterative reconstruction technique. Electronically signed by: Bowen Tan MD 02/28/2019 9:42 PM CDT
--- NOTE | 2019-02-28 22:37 | ED.PDOC ---
History of Present Illness - General Chief Complaint: GI Problem Stated Complaint: n/v and abd pain Time Seen by Provider: 02/28/19 20:21 Information Source: patient Exam Limitations: no limitations - History of Present Illness Initial Comments: Dani Fletcher 74 y/o male came to ER with N/V x 5 today and generalized abdominal discomfort which all started this am able to eat breakfast but not lunch since he feels sick.No hematemesis,diarrhea,dysuria. Abdominal Pain Onset Location: generalized abdomen Pain Radiation: no radiation Quality: moderate, dull, intermittent Timing/Duration: 7-24 hours Improving Factors: nothing Worsening Factors: nothing Associated Symptoms: other - see hpi Review of Systems - Review of Systems Gastrointestinal/Abdominal: States: see HPI, abdominal pain, nausea, vomiting All other Systems: Reviewed and Negative, No Change from Baseline Past Medical History (General) - Patient Medical History Hx Seizures: No Hx Stroke: No Hx Dementia: No Hx Asthma: No Hx of COPD: No Hx Cardiac Disorders: Yes - [place] Hx Congestive Heart Failure: No Hx Pacemaker: No Hx Hypertension: No Hx Thyroid Disease: No Hx Diabetes: Yes Hx Gastroesophageal Reflux: Yes Hx Renal Disease: No Hx Cancer: No Hx of HIV: No Hx Hepatitis C: No Hx MRSA: No Surgical History: other - excision skin cancer - Vaccination History Hx Tetanus, Diphtheria Vaccination: Yes Hx Influenza Vaccination: Yes - 2018 Hx Pneumococcal Vaccination: Yes - Social History Hx Tobacco Use: No Hx Chewing Tobacco Use: No Hx Alcohol Use: No Hx Substance Use: No Hx Substance Use Treatment: No Hx Depression: No Hx Physical Abuse: No Hx Emotional Abuse: No Hx Suspected Abuse: No - Female History Patient : No Family Medical History - Family History Mother Family History: Unknown Living Status: Cause of : uterine cancer Hx Cardiac Disease: Yes - dad Hx Family Cancer: Yes - uterine cancer mom Father Family History: Unknown Living Status: Cause of : hardening of arteries Physical Exam - Physical Exam General Appearance: Alert, Comfortable, No apparent distress Eyes, Ears, Nose, Throat Exam: normal ENT inspection, pharynx normal Neck: non-tender, supple, normal inspection Respiratory: lungs clear, normal breath sounds, no respiratory distress Cardiovascular/Chest: normal peripheral pulses, regular rate, rhythm, no murmur Peripheral Pulses: No deficit Gastrointestinal/Abdominal: non tender, soft, no organomegaly Extremity: no pedal edema, no calf tenderness Neurologic: alert, oriented x 3 Skin Exam: normal color Progress - Progress Progress: 02/28/19 22:39 Vital Signs - 8 hr 02/28/19 19:19 Temperature 97.4 F L Pulse Rate [ 65 left] Respiratory 18 Rate Blood Pressure 150/60 [left] O2 Sat by Pulse 98 Oximetry 02/28/19 22:41 No further vomiting since he was in ER;sleeping while in room - Results/Orders Results/Orders: Laboratory Results - last 24 hr 02/28/19 02/28/19 19:15 21:06 WBC 8.2 RBC 4.49 L Hgb 12.3 L Hct 37.3 L MCV 83.2 MCH 27.4 MCHC 32.9 L RDW 15.0 H Plt Count 253 MPV 8.5 Absolute Neuts (auto) 5.70 Absolute Lymphs (auto) 2.00 Absolute Monos (auto) 0.50 Absolute Eos (auto) 0.10 Absolute Basos (auto) 0.00 Neutrophils % 68.9 Lymphocytes % 23.7 Monocytes % 6.3 Eosinophils % 0.7 L Basophils % 0.4 PT 9.7 INR 0.97 PTT (SP) 25.3 Sodium 137 Potassium 3.9 Chloride 99 L Carbon Dioxide 25 Anion Gap 16.9 BUN 18 Creatinine 0.89 BUN/Creatinine Ratio 20.2 H Random Glucose 193 H Serum Osmolality 281.0 Calcium 9.2 Magnesium 2.2 Total Bilirubin 0.3 Direct Bilirubin < 0.1 Indirect Bilirubin 0.2 AST 34 ALT 27 Alkaline Phosphatase 57 Creatine Kinase 286 H* CK-MB (CK-2) 7.8 H* CK-MB (CK-2) % 2.73 Troponin I < 0.02 Serum Total Protein 7.1 Albumin 4.1 Lipase 41 Urine Color Yellow Urine Appearance Cloudy Urine pH 7.5 Ur Specific [place] 1.015 Urine Protein Negative Urine Glucose (UA) Negative Urine Ketones Negative Urine Blood Negative Urine Nitrite Negative Urine Bilirubin Negative Urine Urobilinogen 0.2 Ur Leukocyte Esterase Negative Urine RBC 0-1 Urine WBC 0 Ur Epithelial Cells 0-1 Amorphous Sediment 3+ Urine Bacteria 2+ H Discuss all test result with patient - EKG/XRAY/CT CT Ordered: Yes - nodule left kidney Departure - Departure Clinical Impression: Abdominal discomfort, Nodule of kidney Nausea & vomiting Qualifiers: Vomiting type: unspecified Vomiting Intractability: non-intractable Qualified Code(s): R11.2 - Nausea with vomiting, unspecified Time of Disposition: 22:43 Disposition: Discharge to Home or Self Care Condition: Fair Departure Forms: ED Discharge - Pt. Copy, Patient Portal Self Enrollment Instructions: [place] Diet Diet: bland diet, other - Avoid [place] and spicy foods until better Referrals: XAVI CASTILLO IV, COMPLIANCE FIELD TECHNICIAN [Primary Care Provider] - 1-2 Weeks Prescriptions: Promethazine Tab [Phenergan Tablet] 25 mg PO .Q4H PRN #14 tab PRN Reason: Nausea Home Medications: Ambulatory Orders Finasteride 5 mg PO DAILY 01/21/14 Gabapentin [Neurontin] 1,200 mg PO TID 01/21/14 Metoprolol Tartrate 50 mg PO BID 01/21/14 Sertraline HCl 100 mg PO BID 01/21/14 Simvastatin [Zocor] 40 mg PO BEDTIME 01/21/14 Tamsulosin HCl 0.4 mg PO BEDTIME 01/21/14 Cetirizine HCl [All Day Allergy] 10 mg PO DAILY 05/18/17 Cinnamon 500 mg PO DAILY 05/18/17 Clonazepam 0.5 mg PO 0600,1200 05/18/17 Fluticasone Prop 0.05% Nasal [Flonase Nasal [place]] 50 mcg NA DAILY 05/18/17 Nitroglycerin 0.4 mg Tab [Nitrostat] 0.4 mg SL Q5MIN PRN 05/18/17 Polyethylene Glycol 3350 [Miralax] 1 tsp PO QD PRN 05/18/17 Potassium Chloride [Potassium Chloride ER] 20 meq PO DAILY 05/18/17 Sitagliptin-Metformin HCl [Janumet 50-1000 mg] 1 tab PO DAILY 05/18/17 Clonazepam 1 mg PO BEDTIME 10/09/17 Aspirin [Aspirin EC Low Dose] 81 mg PO DAILY 04/07/18 Promethazine Tab [Phenergan Tablet] 25 mg PO .Q4H PRN #14 tab 02/28/19 Additional Instructions: Return to Emergency Room as needed;Continue with all home medications;follow up with your primary Md 04 March 2019 for referral to UROLOGIST regarding kidney nodule left
[2019-02-28] MEDS ORDERED: LORazepam 0.5 MG TAB PO ONE (22:49)
[2019-02-28] MEDS ORDERED: PROMETHAZINE TAB (ER DISP) 25 MG TAB PO ONE (22:49)
[2019-02-28 23:12] VITALS: BP 154/78; TEMP 98.2
== END 2019-02-28 22:50 | disposition home or self-care (01) ==
LOC: ER 18:48
DX: R11.2 Nausea with vomiting, unspecified (principal); R10.84 Generalized abdominal pain; N28.9 Disorder of kidney and ureter, unspecified; E11.9 Type 2 diabetes mellitus without complications; K21.9 Gastro-esophageal reflux disease without esophagitis; I25.2 Old myocardial infarction; Z85.828 Personal history of other malignant neoplasm of skin
CPT/HCPCS: 36415; 74176; 80048; 80076; 81001; 82550; 82553; 83690; 84484; 85025; 85610; 85730; J2405; J7030; Q0169

== ENCOUNTER → 2019-03-07 | Outpatient (CLI) | payer OTHER ==
--- NOTE | 2019-03-07 09:17 | US ---
EXAM DESCRIPTION: Gall Bladder CLINICAL HISTORY: EPIGASTRIC PN COMPARISON: CT abdomen February 28, 2019 TECHNIQUE: Right upper quadrant ultrasound FINDINGS: Pancreas: Visualized portions of the pancreas are unremarkable. Bowel gas obscures some areas. Aorta/inferior vena cava: No aortic aneurysm. Normal inferior vena cava. Liver: The liver is homogeneous in texture with increased echogenicity consistent with mild to moderate hepatic steatosis. Fatty liver was not a prominent finding on the recent CT of the liver was slightly low in density. Submitted renal length of 21 cm is over measured. Corrected measurement is approximately 18 cm which is at the upper limits of normal. Recent CT coronal images showed a renal length of 17 cm. No focal liver lesion or intrahepatic bile duct dilatation. No liver surface irregularity. Normal appearance of the portal vein and hepatic veins. Gallbladder: Gallbladder appears normal with no intraluminal stones or wall thickening. Common bile duct: Normal caliber measuring 3.5 mm. Right kidney: Renal length is 12.5 cm. Normal cortical echogenicity. Cortical thickness is normal. No hydronephrosis is seen. No renal mass or shadowing calculus. IMPRESSION: Prominent mildly hyperechoic liver consistent with mild hepatic steatosis. Otherwise unremarkable sonogram of the right upper abdomen. Electronically signed by: Blake Bowie MD 03/07/2019 9:15 AM CDT
== END ==
LOC: LAB.O 07:59
PROVIDERS: ATTEND Family Medicine
DX: N28.89 Other specified disorders of kidney and ureter (principal); K76.9 Liver disease, unspecified; R10.13 Epigastric pain; N40.1 Benign prostatic hyperplasia with lower urinary tract symptoms; E78.5 Hyperlipidemia, unspecified; I10 Essential (primary) hypertension; E11.9 Type 2 diabetes mellitus without complications

== ENCOUNTER → 2019-03-12 | Outpatient (CLI) | payer OTHER ==
--- NOTE | 2019-03-12 19:26 | CT ---
EXAM DESCRIPTION: Abdomen/Pelvis w/wo Contrast: Computed Tomography. CLINICAL HISTORY: RENAL MASS COMPARISON: None. TECHNIQUE: Spiral-axial scans at 2.5 x 2.5 mm intervals through the abdomen and pelvis before and after 75 mL Optiray 320 nonionic IV contrast, arterial phase. 5 x 5 mm helical scans during portal venous phase. Coronal and sagittal 2.0 mm reconstructions during portal venous phase. 5 mm Delayed helical-axial scans, liver through the pubic symphysis, at 7 minutes. No adverse reactions. Total Exam DLP 3452 mGy - cm. This exam was performed according to our departmental CT dose-optimization program which includes automated exposure control, adjustment of the mA and/or kV according to patient size and/or use of iterative reconstruction technique; to reduce radiation dose to as low as reasonably achievable (ALARA). FINDINGS: Kidneys and Ureters: 1.5 mm exophytic nodule is again seen protruding from the inferior cortex of the left kidney. Hounsfield density is +46 noncontrast. Density is +50 on arterial phase. Density is +49 on portal venous phase. Density is +55 with 7 minute delay. Minimal fluid/density is noted in the pararenal space abutting the mass. This tissue is not enhancing. Stable from the prior study. Pararenal stranding bilateral kidneys stable. No radiodense stones, no hydronephrosis bilaterally. Proximal ureter is unremarkable. Lung bases and pleura: Negative. Liver, Stomach, Spleen, Adrenal Glands: Liver is stable size with fatty infiltration. Stomach and other organs negative. Pancreas, Gallbladder, Ducts: Unremarkable. Mesentery: Negative other than pararenal tissues. Aorta: Moderate atherosclerotic calcification, no aortic aneurysm. 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 Stable. Small Bowel: Negative. Terminal Ileum/Cecum: Normal caliber, cecum partially seen and filled with fecal material. Normal caliber of the appendix. No inflammatory changes. Colon: Moderate distention of the colon with fecal material. Distal: Less distended. Pelvic Organs: Minimal thickening of the urinary bladder wall. Small TURP defect in the prostate gland. No fluid. Spine and Bony Pelvis: Multiple levels of lumbar spondylosis especially L5-S1 with grade 1 spondylolisthesis anteriorly and bulging disc. Bilateral L5 pars spondylolysis again seen. Several levels of significant lumbar spine canal and foraminal narrowing.. Abdominal Wall/Back Soft Tissues: Small bilateral fatty inguinal hernias are stable. IMPRESSION: 1.5 mm exophytic mass projecting from the inferior cortex of the left kidney with no calcifications. No significant change in density with IV contrast enhancement. Pararenal density abutting the mass with no enhancement. Differential includes primary malignant or benign tumor or complicated or proteinaceous cyst. Unlikely to represent an inflammatory lesion. Consider urologic consult. Also consider follow-up MRI kidneys without and with gadolinium IV contrast, depending on urology consult. Electronically signed by: Taurus Duval MD 03/12/2019 7:25 PM CDT
== END ==
LOC: CT 08:17
PROVIDERS: ATTEND Family Medicine
DX: N28.89 Other specified disorders of kidney and ureter (principal)

== ENCOUNTER → 2019-03-26 | Outpatient (CLI) | payer OTHER ==
--- NOTE | 2019-03-27 13:13 | NM ---
EXAM DESCRIPTION: Hepatobiliary w/CCK: Nuclear Medicine. CLINICAL HISTORY: EPIGASTRIC PAIN COMPARISON: CT abdomen and pelvis 03/12/2019 and ultrasound gallbladder 03/07/2019. TECHNIQUE: Patient was given 8.1 mCi of technetium 99 M mebrofenin (Choletec) radiopharmaceutical IV. Anterior gamma camera images were obtained of the right upper quadrant at 5 minute intervals for one hour . The patient was then given 2.0 mcg CCK IV infusion over 30-minute interval. Gallbladder ejection fraction was evaluated by measuring diminishing radioactivity in the gallbladder, over 30 min interval. FINDINGS: Immediate visualization of most of the liver after radiopharmaceutical administration began. Contour of the liver and regions of photopenia matches the appearance of the liver contour and vascular structures seen on recent abdomen CT scan. Timely appearance of activity in the intrahepatic ducts, gallbladder, extrahepatic ducts and small intestine. After CCK infusion began, patient's symptoms of nausea were duplicated. Decrease in activity in the gallbladder of 34% at 20 minutes. Decrease in activity of 35% in 30 minutes. IMPRESSION: 1. No intrahepatic or extrahepatic biliary dilatation. 2. Borderline abnormal gallbladder ejection fraction. This can be a result of a calculus cholecystitis or gallbladder dyskinesia. Electronically signed by: Taurus Duval MD 03/27/2019 1:11 PM CDT
== END ==
LOC: LAB.O 08:00
PROVIDERS: ATTEND Family Medicine
DX: R10.13 Epigastric pain (principal); N39.0 Urinary tract infection, site not specified
CPT/HCPCS: 78227; 81001; 87086; A9537

== ENCOUNTER → 2019-04-10 | Outpatient (CLI) | payer OTHER | LOC: YCFC.O 09:45 | PROVIDERS: ATTEND Family Medicine | DX: R33.9 Retention of urine, unspecified (principal) ==

== ENCOUNTER 2019-04-12 05:47 | Day surgery (SDC) | payer OTHER ==
[2019-04-12] MEDS ORDERED: METOPROLOL TARTRATE INJ 5 MG/5 ML VIAL IV ONE (07:00)
[2019-04-12] MEDS ORDERED: DEXAMETHASONE INJ 10 MG/ML VIAL ONE (07:00)
[2019-04-12] MEDS ORDERED: LIDOCAINE 1% 10 ML VIAL INJ ONE (07:00)
[2019-04-12] MEDS ORDERED: ePHEDrine SULF 50 MG/ML ONE (07:00)
[2019-04-12] MEDS ORDERED: raNITIdine HCL INJ 25 MG/ML VIAL ONE (07:00)
[2019-04-12] MEDS ORDERED: PROPOFOL 200 MG/20 ML VIAL IV ONE (07:00)
[2019-04-12] MEDS ORDERED: LACTATED RINGERS 1,000 ML ONE ×2 (07:06→11:34)
[2019-04-12] MEDS ORDERED: BUPIVACAINE 0.25% W/EPI 50 ML VIAL INJ ONE (08:56)
[2019-04-12] MEDS ORDERED: fentaNYL CITRATE INJ 50 MCG/ML AMP ONE (09:30)
[2019-04-12] MEDS ORDERED: KETAMINE HCL 100 MG/ML VIAL ONE (09:30)
[2019-04-12] MEDS ORDERED: MIDAZOLAM INJ 2 MG/2 ML VIAL ONE (09:30)
[2019-04-12] MEDS ORDERED: ROCURONIUM BROMIDE 10 MG/ML VIAL ONE (09:31)
[2019-04-12] MEDS ORDERED: SUGAMMADEX SODIUM 200 MG/2 ML VIAL IV ONE (10:39)
[2019-04-12] MEDS: fentaNYL CITRATE INJ 50 MCG/ML AMP ONE ×3 (11:01→11:21)
[2019-04-12] MEDS ORDERED: ONDANSETRON INJ 4 MG/2 ML VIAL ONE (11:09)
[2019-04-12] MEDS: HYDROmorphone HCL INJ 2 MG/ML VIAL ONE ×3 (11:30→12:00)
--- NOTE | 2019-04-12 12:01 | OP ---
DATE OF PROCEDURE: 04/12/19 PREOPERATIVE DIAGNOSIS: 1. Biliary dyskinesia. POSTOPERATIVE DIAGNOSIS: 1. Biliary dyskinesia. PROCEDURE: 1. Laparoscopic cholecystectomy. SURGEON: Solomon Meyer MD. ANESTHESIA: General and local. FINDINGS: Moderate scarring in the infundibulum consistent with mild chronic cholecystitis. The anatomy was clearly visualized. ESTIMATED BLOOD LOSS: Minimal SPECIMEN: Gallbladder. CONDITION: Stable. PLAN: Discharge. INDICATION: As stated. PROCEDURE: General anesthesia was induced. The patient was prepped and draped in sterile fashion. Marcaine 0.5% with epinephrine was used at the incision sites while maintaining upward traction. Veress needle was introduced. There was free flow of fluid into the peritoneal cavity which was insufflated to an appropriate level with CO2 gas. The 5 mm trocar was placed followed by the camera. There was no evidence of bleeding or bowel injury. The patient was positioned and subxiphoid and lateral ports were placed under direct visualization without difficulty. The gallbladder fundus was grasped and retracted superiorly and laterally. The infundibulum was grasped. The infundibular structures were dissected free. The duct and artery were clearly visualized through the triangle of [place]. Three clips were placed on an anterior small vessel. This was ligated. We then identified the cystic duct again posterior to this. It was triply ligated. Again, just some chronic scarring, but no evidence of any additional abnormality structures. The gallbladder was then dissected off the fossa in toto and removed in the EndoCatch bag. The fossa was examined. It remained hemostatic. The clips were intact. There was no bleeding or bile leak. The subxiphoid fascia was then closed with 0 Vicryl using the suture passer. It was airtight and non-bleeding. The remaining trocars were removed. There was no bleeding from the trocar sites. The wounds were irrigated and closed with Monocryl. Dressings were applied. The patient was awakened and taken to Recovery in stable condition to be discharged. #[id number] cc: Audi PALOMO
[2019-04-12 14:31] VITALS: BP 140/62; TEMP 97.4; O2SAT 94
== END 2019-04-12 14:25 | disposition home or self-care (01) ==
LOC: AMB 05:47
PROVIDERS: ATTEND Surgery
DX: K81.1 Chronic cholecystitis (principal); E11.9 Type 2 diabetes mellitus without complications; F32.9 Major depressive disorder, single episode, unspecified; E78.00 Pure hypercholesterolemia, unspecified; I10 Essential (primary) hypertension; G47.30 Sleep apnea, unspecified; K21.9 Gastro-esophageal reflux disease without esophagitis; Z87.891 Personal history of nicotine dependence; Z88.6 Allergy status to analgesic agent; Z79.82 Long term (current) use of aspirin; Z79.899 Other long term (current) drug therapy
CPT/HCPCS: 00790; 36415; 36416; 47562; 80048; 82948; 85014; 85018; 93005; J1100; J1170; J2250; J2405; J2780; J3010; J3490; J7120

== ENCOUNTER 2019-04-15 11:39 | Emergency (ER) | payer OTHER ==
--- NOTE | 2019-04-15 12:06 | ED.PDOC ---
History of Present Illness - General Chief Complaint: Abdominal Pain Stated Complaint: RUQ abd and back pain Time Seen by Provider: 04/15/19 11:49 - History of Present Illness Initial Comments: 74-year-old male who presents to ED complaining of right upper quadrant pain reading posteriorly into the back. Patient is a couple days postop from cholecystectomy. Patient informs the pain is persistent since his discharge despite the pain pump in place and has not improved at all Patient is concerned because he is unable to gain control. He denies associated symptoms of nausea/vomiting, fever/chills, chest pain, shortness breath, and/or acute changes in bowels or urination. Review of Systems - Review of Systems Constitutional: Denies: chills, diaphoresis, fever EENTM: Denies: no symptoms reported Respiratory: Denies: cough, short of breath Cardiology: Denies: chest pain, palpitations Gastrointestinal/Abdominal: States: abdominal pain. Denies: constipation, diarrhea, nausea, vomiting Genitourinary: Denies: dysuria, frequency Musculoskeletal: States: back pain. Denies: muscle pain Skin: Denies: change in color, rash Neurological: Denies: headache Past Medical History (General) - Patient Medical History Hx Seizures: No Hx Stroke: Yes - heat stroke Hx Dementia: No Hx Asthma: No Hx of COPD: No Hx Cardiac Disorders: No Hx Congestive Heart Failure: No - Pt not sure Hx Pacemaker: No Hx Hypertension: Yes Hx Thyroid Disease: No Hx Diabetes: Yes Hx Gastroesophageal Reflux: Yes Hx Renal Disease: No Hx Cancer: Yes - melanoma Hx of HIV: No Hx Hepatitis C: No Hx MRSA: No MRSA Source:: POST SRUG Surgical History: cancer surgery, cholecystectomy - Vaccination History Hx Tetanus, Diphtheria Vaccination: No Hx Influenza Vaccination: Yes Hx Pneumococcal Vaccination: Yes - Social History Hx Tobacco Use: Yes Hx Chewing Tobacco Use: No Hx Alcohol Use: No Hx Substance Use: No Hx Substance Use Treatment: No Hx Depression: No Hx Physical Abuse: No Hx Emotional Abuse: No Hx Suspected Abuse: No - Female History Patient is a Female of Child Bearing Age (10 -59 yrs old): No Patient : No Family Medical History - Family History Mother Family History: Unknown Living Status: Cause of : uterine cancer Hx Cardiac Disease: Yes - dad Hx Family Cancer: Yes - uterine cancer mom Father Family History: Unknown Living Status: Cause of : hardening of arteries Physical Exam - Physical Exam General Appearance: Alert, Comfortable Eyes, Ears, Nose, Throat Exam: PERRL/EOMI Neck: full range of motion Respiratory: lungs clear, normal breath sounds, no respiratory distress, no accessory muscle use Cardiovascular/Chest: normal peripheral pulses, regular rate, rhythm, no JVD, no murmur Gastrointestinal/Abdominal: normal bowel sounds, soft, other - well-healing laparoscopic incision sites with pain pump subcutaneously placed in the right lower quadrant patient with moderate right upper quadrant tenderness to palpation in trace hematoma under the skin Back Exam: no CVA tenderness Extremity: pedal edema Neurologic: alert, normal mood/affect, oriented x 3 Skin Exam: normal color, warm/dry, other - no rash or jaundice Progress - Progress Progress: Dr. García Pearce D.O. [id number] 04/15/19 14:16 Dr. Dickens has finished evaluating pt and agrees he is clear for discharge home. He has instructed pt to start taking his pain medication as instructed and will see him as an outpatient in clinic at the appropriate follow up. 04/16/19 01:16 Departure - Departure Clinical Impression: Post-operative pain, Status post cholecystectomy, Right upper quadrant abdominal pain Time of Disposition: 14:17 Disposition: Discharge to Home or Self Care Condition: Excellent Departure Forms: ED Discharge - Pt. Copy, Patient Portal Self Enrollment Instructions: DI for Abdominal Pain-Adult, Postoperative Pain (DC) Referrals: XAVI CASTILLO IV, NP [Primary Care Provider] - 1-2 Weeks Solomon Meyer MD [Active Staff] - 1-2 Weeks Home Medications: Ambulatory Orders RX: Finasteride 5 mg PO DAILY 01/21/14 RX: Gabapentin [Neurontin] 1,200 mg PO TID 01/21/14 RX: Sertraline HCl 100 mg PO BID 01/21/14 RX: Simvastatin [Zocor] 40 mg PO BEDTIME 01/21/14 RX: Tamsulosin HCl 0.4 mg PO BEDTIME 01/21/14 RX: Cetirizine HCl [All Day Allergy] 10 mg PO BEDTIME 05/18/17 RX: Cinnamon 500 mg PO DAILY 05/18/17 RX: Nitroglycerin 0.4 mg Tab [Nitrostat] 0.4 mg SL Q5MIN PRN 05/18/17 RX: Polyethylene Glycol 3350 [Miralax] 1 tsp PO QD PRN 05/18/17 RX: Potassium Chloride [Potassium Chloride ER] 20 meq PO DAILY 05/18/17 RX: Sitagliptin-Metformin HCl [Janumet 50-1000 mg] 1 tab PO BID 05/18/17 RX: Aspirin [Aspirin EC Low Dose] 81 mg PO BEDTIME 04/07/18 Ascorbic Acid [Qc Vitamin C 500 mg] 1 chw PO NOON 04/11/19 Cranberry (Vaccinium Macrocarp [Theracran Hp For Kids] 50 mg PO NOON 04/11/19 Cyanocobalamin [B-12] 1,000 mcg PO NOON 04/11/19 Docusate Sodium [Colace Cap] 200 mg PO BID 04/11/19 Ferrous Sulfate [Feosol Tab] 325 mg PO NOON 04/11/19 Furosemide [Lasix] 20 mg PO DAILY PRN 04/11/19 Garlic [Odor Free Garlic] 100 mg PO NOON 04/11/19 Linaclotide [Linzess] 290 mcg PO DAILY 04/11/19 Metoprolol Succinate [Metoprolol Succinate ER] 12.5 mg PO BID 04/11/19 Mupirocin 2 % Oint [Bactroban Oint] 1 applic TOP DAILY 04/11/19 Ondansetron [Ondansetron Odt] 8 mg PO PRN PRN 04/11/19 Promethazine Tab [Phenergan Tablet] 25 mg PO QID PRN 04/11/19 Psyllium [Konsyl-D] 52.3 % PO DAILY 04/11/19
[2019-04-15 15:49] VITALS: BP 134/45; TEMP 98.9; O2SAT 94
== END 2019-04-15 15:54 | disposition home or self-care (01) ==
LOC: ER 11:39
DX: G89.18 Other acute postprocedural pain (principal); R10.11 Right upper quadrant pain; I10 Essential (primary) hypertension; E11.9 Type 2 diabetes mellitus without complications; K21.9 Gastro-esophageal reflux disease without esophagitis; Z90.49 Acquired absence of other specified parts of digestive tract; Z85.820 Personal history of malignant melanoma of skin; Z79.899 Other long term (current) drug therapy

== ENCOUNTER 2019-05-06 11:09 | Emergency (ER) | payer OTHER ==
[2019-05-06] MEDS ORDERED: SODIUM CHLORIDE 0.9% (FLUSH) 10 ML SYG IV PRN (11:27)
[2019-05-06] MEDS ORDERED: SODIUM CHLORIDE 0.9% 1000ML 1,000 ML IVS PRN (11:27)
[2019-05-06] MEDS ORDERED: fentaNYL CITRATE INJ 50 MCG/ML AMP IV ONE (11:29)
[2019-05-06] MEDS ORDERED: ONDANSETRON INJ 4 MG/2 ML VIAL IV ONE (11:29)
[2019-05-06 11:31] VITALS: TEMP 98.4
--- NOTE | 2019-05-06 11:35 | ED.PDOC ---
History of Present Illness - General Chief Complaint: Abdominal Pain Stated Complaint: R abd discomfort Time Seen by Provider: 05/06/19 11:15 Information Source: patient, family Exam Limitations: no limitations - History of Present Illness Initial Comments: 74 y/o M presents to the ED c/o RUQ abd pain and diarrhea onset late last night. He had a lap riccardo done by Dr. Meyer 3 weeks ago and last saw him in the clinic last week. Pt reports nausea but denies any vomiting. He has not had any fever/chills or noticed any blood in his stool. Pain is currently moderate in severity and not helped by his pain pump medications. He also reports generalized weakness and fatigue. Pt denies any recent travel or known ill contacts. Review of Systems - Review of Systems Constitutional: Denies: chills, fever EENTM: Denies: nose congestion, throat pain Respiratory: Denies: cough, short of breath Cardiology: Denies: chest pain, palpitations Gastrointestinal/Abdominal: States: abdominal pain, diarrhea, nausea. Denies: vomiting Genitourinary: Denies: dysuria, frequency, hematuria Musculoskeletal: Denies: joint pain, muscle pain Skin: Denies: lesions, rash Neurological: States: weakness - generalized. Denies: headache Past Medical History (General) - Patient Medical History Hx Seizures: No Hx Stroke: No Hx Dementia: No Hx Asthma: No Hx of COPD: No Hx Cardiac Disorders: No Hx Congestive Heart Failure: No Hx Pacemaker: No Hx Hypertension: Yes Hx Thyroid Disease: No Hx Diabetes: Yes Hx Gastroesophageal Reflux: Yes Hx Renal Disease: No Hx Cancer: Yes - melanoma Hx of HIV: No Hx Hepatitis C: No Hx MRSA: No MRSA Source:: POST SRUG - Vaccination History Hx Tetanus, Diphtheria Vaccination: No Hx Influenza Vaccination: Yes - 2019 Hx Pneumococcal Vaccination: Yes - 2019 - Social History Hx Tobacco Use: Yes Hx Chewing Tobacco Use: No Hx Alcohol Use: Yes Hx Substance Use: No Hx Substance Use Treatment: No Hx Depression: No Hx Physical Abuse: No Hx Emotional Abuse: No Hx Suspected Abuse: No - Female History Patient : No Family Medical History - Family History Mother Family History: Unknown Living Status: Cause of : uterine cancer Hx Cardiac Disease: Yes - dad Hx Family Cancer: Yes - uterine cancer mom Father Family History: Unknown Living Status: Cause of : hardening of arteries Physical Exam - Physical Exam General Appearance: Alert, Other - uncomfortable appearing Eyes, Ears, Nose, Throat Exam: PERRL/EOMI, other - slightly dry oral mucosa. Normal nose and no erythema to the posterior pharynx. Neck: full range of motion, normal inspection Respiratory: lungs clear, normal breath sounds, no respiratory distress Cardiovascular/Chest: normal peripheral pulses, regular rate, rhythm, no murmur Peripheral Pulses: 2+ Gastrointestinal/Abdominal: soft, abnormal bowel sounds - hyperactive, tenderness - diffuse, other - pain pump located in the R lower abd wall. Laparoscopic surgical incisions well healed, clean, dry and intact Extremity: normal range of motion, normal inspection, no pedal edema Neurologic: alert, normal mood/affect, oriented x 3, other - moves all extremities without focal deficits Skin Exam: normal color, warm/dry Progress - Progress Progress: 05/06/19 11:40 Old record review: Pt seen in ED on 04/15/19 for RUQ pain following lap riccardo. Labs were done and WBC was nl without significant findings in chem panel. Dr. Meyer was contacted and recommended that pt take pain medications as instructed and would f/u in the office. 05/06/19 12:36 Pt resting comfortably. Lab and imaging results discussed with pt along with plan for d/c. D/c and f/u instructions given. Pt voiced understanding and agrees with plan. All questions/concerns were addressed. - Results/Orders Results/Orders: 05/06/19 11:27 IV Care:Saline Lock per Protoc QSHIFT Sodium Chloride 0.9% (Flush) [Saline Flush Syringe] 10 ml IV PRN PRN URINALYSIS Stat 05/06/19 11:28 Hold Metformin x 48Hrs [id number] 05/06/19 11:30 EKG STAT 05/06/19 11:41 Sodium Chloride 0.9% 1000ML [Ns 1000 ml] 1,000 ml IVS ONCE 05/06/19 11:47 BLOOD CULTURE Stat Laboratory Results - last 24 hr 05/06/19 05/06/19 05/06/19 11:20 11:20 11:20 WBC 9.5 RBC 4.75 Hgb 12.8 L Hct 38.7 L MCV 81.5 MCH 27.0 MCHC 33.1 RDW 15.2 H Plt Count 328 MPV 8.0 Absolute Neuts (auto) 7.40 H Absolute Lymphs (auto) 1.70 Absolute Monos (auto) 0.30 Absolute Eos (auto) 0.00 Absolute Basos (auto) 0.00 Neutrophils % 77.8 Lymphocytes % 17.8 L Monocytes % 3.6 Eosinophils % 0.5 L Basophils % 0.3 Sodium 138 Potassium 3.7 Chloride 102 Carbon Dioxide 23 Anion Gap 16.7 BUN 21 H Creatinine 0.84 BUN/Creatinine Ratio 25.0 H Random Glucose 174 H Serum Osmolality 282.8 Lactic Acid Calcium 9.2 Total Bilirubin 0.6 Direct Bilirubin 0.1 Indirect Bilirubin 0.5 AST 29 ALT 27 Alkaline Phosphatase 66 Serum Total Protein 7.4 Albumin 4.1 Lipase 51 05/06/19 11:47 WBC RBC Hgb Hct MCV MCH MCHC RDW Plt Count MPV Absolute Neuts (auto) Absolute Lymphs (auto) Absolute Monos (auto) Absolute Eos (auto) Absolute Basos (auto) Neutrophils % Lymphocytes % Monocytes % Eosinophils % Basophils % Sodium Potassium Chloride Carbon Dioxide Anion Gap BUN Creatinine BUN/Creatinine Ratio Random Glucose Serum Osmolality Lactic Acid 1.7 Calcium Total Bilirubin Direct Bilirubin Indirect Bilirubin AST ALT Alkaline Phosphatase Serum Total Protein Albumin Lipase CT Abd/Pelvis: IMPRESSION: 1. No acute intra-abdominal or intrapelvic process. 2. Few prominent small bowel loops could represent ileus. No evidence of bowel obstruction. 3. Stable 1.4 cm indeterminate lesion along the posterior aspect of the interpolar region of the left kidney. This exam was performed according to our departmental dose-optimization program, which includes automated exposure control, adjustment of the mA and/or kV according to patient size and/or use of iterative reconstruction technique. Electronically signed by: Aniya Davsi MD 05/06/2019 12:18 PM CDT - EKG/XRAY/CT EKG: Ernesto, nonspecific ST T wave Chg, Unchanged from - 04/11/19 Comments: Normal axis. No ST elevation. Departure - Departure Clinical Impression: Abdominal pain Qualifiers: Abdominal location: right upper quadrant Qualified Code(s): R10.11 - Right upper quadrant pain Diarrhea Qualifiers: Diarrhea type: unspecified type Qualified Code(s): R19.7 - Diarrhea, unspecified Time of Disposition: 12:38 Disposition: Discharge to Home or Self Care Condition: Fair Departure Forms: ED Discharge - Pt. Copy, Patient Portal Self Enrollment Instructions: DI for Abdominal Pain-Adult, Diarrhea in Adolescents and Adults Diet: full liquid diet, other - advance diet as tolerated Referrals: XAVI CASTILLO IV, NP [Primary Care Provider] - 1-2 Days Solomon Meyer MD [Active Staff] - 1-5 Days Prescriptions: Hyoscyamine Sulfate [Levsin] 0.125 mg PO Q8H PRN #15 tab PRN Reason: Pain Home Medications: Ambulatory Orders Finasteride 5 mg PO DAILY 01/21/14 Gabapentin [Neurontin] 1,200 mg PO TID 01/21/14 Sertraline HCl 100 mg PO BID 01/21/14 Simvastatin [Zocor] 40 mg PO BEDTIME 01/21/14 Tamsulosin HCl 0.4 mg PO BEDTIME 01/21/14 Cetirizine HCl [All Day Allergy] 10 mg PO BEDTIME 05/18/17 Cinnamon 500 mg PO DAILY 05/18/17 Nitroglycerin 0.4 mg Tab [Nitrostat] 0.4 mg SL Q5MIN PRN 05/18/17 Polyethylene Glycol 3350 [Miralax] 1 tsp PO QD PRN 05/18/17 Potassium Chloride [Potassium Chloride ER] 20 meq PO DAILY 05/18/17 Sitagliptin-Metformin HCl [Janumet 50-1000 mg] 1 tab PO BID 05/18/17 Aspirin [Aspirin EC Low Dose] 81 mg PO BEDTIME 04/07/18 Ascorbic Acid [Qc Vitamin C 500 mg] 1 chw PO NOON 04/11/19 Cranberry (Vaccinium Macrocarp [Theracran Hp For Kids] 50 mg PO NOON 04/11/19 Cyanocobalamin [B-12] 1,000 mcg PO NOON 04/11/19 Docusate Sodium [Colace Cap] 200 mg PO BID 04/11/19 Ferrous Sulfate [Feosol Tab] 325 mg PO NOON 04/11/19 Furosemide [Lasix] 20 mg PO DAILY PRN 04/11/19 Garlic [Odor Free Garlic] 100 mg PO NOON 04/11/19 Linaclotide [Linzess] 290 mcg PO DAILY 04/11/19 Metoprolol Succinate [Metoprolol Succinate ER] 12.5 mg PO BID 04/11/19 Mupirocin 2 % Oint [Bactroban Oint] 1 applic TOP DAILY 04/11/19 Ondansetron [Ondansetron Odt] 8 mg PO PRN PRN 04/11/19 Promethazine Tab [Phenergan Tablet] 25 mg PO QID PRN 04/11/19 Psyllium [Konsyl-D] 52.3 % PO DAILY 04/11/19 Hyoscyamine Sulfate [Levsin] 0.125 mg PO Q8H PRN #15 tab 05/06/19 Additional Instructions: Return to the ED for worsening pain, fevers or other concerning signs/sx.
[2019-05-06] MEDS ORDERED: SODIUM CHLORIDE 0.9% 1000ML 1,000 ML IVS ONE (11:41)
--- NOTE | 2019-05-06 12:19 | CT ---
EXAM DESCRIPTION: Abdomen/Pelvis w/Contrast CLINICAL HISTORY: 74 years Male, Post op RUQ pain COMPARISON: CT abdomen and pelvis dated 03/12/2019. TECHNIQUE: Contiguous 3 mm axial images were obtained from the lung bases to the level of the proximal femora after the administration of intravenous and oral contrast. Sagittal and coronal reconstructions were reviewed. FINDINGS: THORAX: The imaged lower thorax demonstrates no gross abnormality. LIVER: Diffuse fatty infiltration. GALLBLADDER: Surgically absent. PANCREAS: Appears normal with no cystic or solid lesions. SPLEEN: Normal ADRENAL GLANDS: Normal with no nodules or masses. KIDNEYS: Both kidneys enhance symmetrically with no hydronephrosis or nephrolithiasis or perinephric fluid collections. 1 cm simple cyst is noted in the posterior aspect of the interpolar region of the right kidney. 1.4 cm indeterminate lesion along the posterior aspect of the interpolar region of the left kidney appears unchanged. The visualized ureters appear grossly unremarkable. STOMACH: Small hiatal hernia with reflux. The stomach is not well-distended limiting detailed evaluation. SMALL BOWEL: The proximal small bowel loops are prominent and fluid-filled probably representing ileus. No evidence of bowel obstruction. LARGE BOWEL: Majority of the colon is not well-distended limiting detailed evaluation. No evidence of free intraperitoneal air. Trace free fluid is noted in the pelvis. RETROPERITONEUM: The abdominal aorta is nonaneurysmal with moderate atherosclerosis. The inferior vena cava is normal in size and caliber. No abnormally enlarged retroperitoneal lymph nodes are identified. URINARY BLADDER: The urinary bladder demonstrates a circumferentially thick wall. The prostate gland appears normal. ADDITIONAL FINDINGS: Small fat-containing bilateral inguinal hernias. BONES: Moderate degenerative changes are identified in the visualized bones. Grade 1 anterolisthesis of L5 over S1 secondary to bilateral pars defects. IMPRESSION: 1. No acute intra-abdominal or intrapelvic process. 2. Few prominent small bowel loops could represent ileus. No evidence of bowel obstruction. 3. Stable 1.4 cm indeterminate lesion along the posterior aspect of the interpolar region of the left kidney. This exam was performed according to our departmental dose-optimization program, which includes automated exposure control, adjustment of the mA and/or kV according to patient size and/or use of iterative reconstruction technique. Electronically signed by: Aniya Davis MD 05/06/2019 12:18 PM CDT
[2019-05-06 12:36] VITALS: BP 143/58; O2SAT 95
== END 2019-05-06 13:07 | disposition home or self-care (01) ==
LOC: ER 11:09
DX: R10.11 Right upper quadrant pain (principal); R19.7 Diarrhea, unspecified; R11.0 Nausea; R53.1 Weakness; R53.83 Other fatigue; R00.1 Bradycardia, unspecified; I10 Essential (primary) hypertension; E11.9 Type 2 diabetes mellitus without complications; K21.9 Gastro-esophageal reflux disease without esophagitis; Z87.891 Personal history of nicotine dependence; Z85.820 Personal history of malignant melanoma of skin; Z90.49 Acquired absence of other specified parts of digestive tract; Z79.899 Other long term (current) drug therapy
CPT/HCPCS: 36415; 74177; 80048; 80076; 83605; 83690; 85025; 87040; 93005; J2405; J3010; J7030

== ENCOUNTER → 2019-05-08 | Outpatient (CLI) | payer OTHER | LOC: LAB.O 16:01 | PROVIDERS: ATTEND Family Medicine | DX: R10.9 Unspecified abdominal pain (principal); I10 Essential (primary) hypertension ==

== ENCOUNTER → 2019-05-15 | Outpatient (CLI) | payer OTHER ==
--- NOTE | 2019-05-15 12:16 | RAD ---
EXAM DESCRIPTION: Chest,2 Views CLINICAL HISTORY: 74 years Male, ACUTE UPPER RESPIRATORY INFECTION COMPARISON: CT chest dated 07/24/2018. Radiographs the chest dated 05/30/2018. TECHNIQUE: PA and lateral radiographs of the chest were obtained. FINDINGS: Trachea is midline.The cardiomediastinal silhouette is normal in size. The pulmonary vasculature is within normal limits.The lungs are clear with no acute consolidation.No evidence of pleural effusions.No evidence of pneumothorax. IMPRESSION: No acute cardiopulmonary process. Electronically signed by: Aniya Davis MD 05/15/2019 12:14 PM CDT
== END ==
LOC: YCFC.O 10:55
PROVIDERS: ATTEND Family Medicine
DX: J06.9 Acute upper respiratory infection, unspecified (principal); M62.81 Muscle weakness (generalized)

== ENCOUNTER → 2019-06-06 | Outpatient (CLI) | payer OTHER ==
--- NOTE | 2019-06-07 09:24 | RAD ---
EXAM DESCRIPTION: KUB CLINICAL HISTORY: RIGHT FLANK PAIN COMPARISON: July 23, 2015 IMPRESSION: Single AP supine view of the abdomen shows a nonspecific, nonobstructive bowel gas pattern. No abnormal calcifications are seen in the expected location of the kidneys or ureters. Mild to moderate spondylitic changes of the spine are seen. Electronically signed by: Kvng Du MD 06/07/2019 9:23 AM DIRECTOR OF BLOOD
== END ==
LOC: YCFC.O 15:10
PROVIDERS: ATTEND Nurse Practitioner
DX: R10.9 Unspecified abdominal pain (principal); M46.90 Unspecified inflammatory spondylopathy, site unspecified

== ENCOUNTER → 2019-06-12 | Outpatient (CLI) | payer OTHER ==
--- NOTE | 2019-06-14 15:05 | RAD ---
EXAM DESCRIPTION: Ribs,Right 3 Views: CR/DR/XR CLINICAL HISTORY: 74 years Male RIB PN COMPARISON: 2 view chest x-ray 15 May 2019. TECHNIQUE: 3 views right ribs and chest. FINDINGS: Incompletely healed fracture of the anatomical neck of the right humerus with callus formation and radiolucency in the fracture site. No dislocation. 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 Also arthrosis in the AC joint. No fracture or displacement of the right ribs. No pleural effusion. No pulmonary contusion. IMPRESSION: 1. No acute or chronic fracture of the right ribs or displacement. No right pleural effusion or pulmonary contusion. 2. Partially healed fracture of the anatomical right humeral neck with radiolucency and sclerosis seen around the fracture site along with cortical offset. Advanced arthrosis glenohumeral joint. Arthrosis also in the right AC joint. Correlate with clinical findings. Deformity is noted on prior CT scan partially demonstrating the right humeral head and right glenoid. Consider follow-up MRI scan or CT scan of the right glenohumeral joint and proximal right humerus. Electronically signed by: Taurus Duval MD 06/14/2019 3:04 PM [facility]
== END ==
LOC: LAB.O 11:50
PROVIDERS: ATTEND Family Medicine
DX: R07.81 Pleurodynia (principal); M89.8X9 Other specified disorders of bone, unspecified site; S42.294D Other nondisplaced fracture of upper end of right humerus, subsequent encounter for fracture with routine healing; M19.011 Primary osteoarthritis, right shoulder

== ENCOUNTER → 2019-07-04 | Outpatient (CLI) | payer OTHER ==
--- NOTE | 2019-07-05 10:12 | NM ---
EXAM DESCRIPTION: Bone Scan, Whole Body: Nuclear Medicine CLINICAL HISTORY: 74 years Male BONE PAIN COMPARISON: Rib radiographs and KUB in May 2019. Chest x-ray and abdomen pelvis CT scan April 2019. TECHNIQUE: Patient injected with 26.6 mCi of technetium 99M MDP IV. Delayed gamma camera images of whole body and ribs from various planes were obtained 3 hr after injection. FINDINGS: Increased activity in the T9 vertebral body better visualized posteriorly. Also the posterior left T11 vertebral body or facet shows increased uptake. This is most likely degenerative. Normal activity and uptake in the bilateral ribs. Increased activity in the anterior right glenohumeral joint region and bilateral AC joints. Activity in the left elbow is increased compared to the right which may be injection site. Degenerative type activity in the included hand and wrist joints. Also degenerative type activity/uptake bilateral knees and ankles. No abnormal long bone activity, flat bone activity, or skull uptake/activity. Normal soft tissue activity. IMPRESSION: Normal activity and uptake in the bilateral ribs. Increased activity in multiple joints and in the lower thoracic spine. Electronically signed by: Taurus Duval MD 07/05/2019 10:11 AM [facility]
== END ==
LOC: NM 08:59
PROVIDERS: ATTEND Family Medicine
DX: M89.8X9 Other specified disorders of bone, unspecified site (principal)

== ENCOUNTER → 2019-07-11 | Outpatient (CLI) | payer OTHER | LOC: YCFC.O 15:52 | PROVIDERS: ATTEND Family Medicine | DX: R33.9 Retention of urine, unspecified (principal) ==

== ENCOUNTER 2019-07-15 09:58 | Emergency (ER) | payer OTHER ==
[2019-07-15] MEDS ORDERED: SODIUM CHLORIDE 0.9% (FLUSH) 10 ML SYG IV PRN (10:11)
[2019-07-15] MEDS ORDERED: diazePAM 5 MG TAB PO ONE (10:17)
--- NOTE | 2019-07-15 10:18 | ED.PDOC ---
History of Present Illness - General Chief Complaint: Respiratory Problem Stated Complaint: shortness of breath, headache Time Seen by Provider: 07/15/19 09:59 Source: patient, family Additional Information: The patient is a 74 year old male with PMH significant for HTN, DM, anxiety, chronic pain who presents to the ED complaining of shortness of breath. States that he was eating oatmeal this morning when he suddenly felt short of breath. He is unable to identify any modifying factors. He does not have chest pain or palpitations. No cough, fever, leg swelling or any other symptoms at this time. - History of Present Illness Timing/Duration: 1-3 hours Activities at Onset: none Possible Cause: no prior episodes Improving Factors: nothing Worsening Factors: nothing Allergies/Adverse Reactions: Allergies Ibuprofen Allergy (Mild, Verified 04/15/19 11:58) Rash Levofloxacin [From Levaquin] Allergy (Verified 04/15/19 11:58) Unknown Home Medications: Ambulatory Orders Finasteride 5 mg PO DAILY 01/21/14 Gabapentin [Neurontin] 1,200 mg PO TID 01/21/14 Simvastatin [Zocor] 40 mg PO BEDTIME 01/21/14 Tamsulosin HCl 0.4 mg PO BEDTIME 01/21/14 Cetirizine HCl [All Day Allergy] 10 mg PO BEDTIME 05/18/17 Potassium Chloride [Potassium Chloride ER] 10 meq PO DAILY 05/18/17 Aspirin [Aspirin EC Low Dose] 81 mg PO BEDTIME 04/07/18 Cyanocobalamin [B-12] 1,000 mcg PO NOON 04/11/19 Docusate Sodium [Colace Cap] 100 mg PO BEDTIME 04/11/19 Linaclotide [Linzess] 290 mcg PO DAILY 04/11/19 Promethazine Tab [Phenergan Tablet] 25 mg PO QID PRN 04/11/19 Acetaminophen [Tylenol] 500 mg PO Q6HR PRN 07/15/19 Alogliptin Benzoate [Alogliptin] 25 mg PO DAILY 07/15/19 Glipizide [Glipizide Xl] 2.5 mg PO BID 07/15/19 Metformin HCl [Glucophage] 1,000 mg PO BID 07/15/19 Metoprolol Tartrate 12.5 mg PO BID 07/15/19 diphenhydrAMINE HCL [Benadryl] 25 mg PO Q6HR PRN 07/15/19 Review of Systems - Review of Systems Constitutional: Denies: chills, fever EENTM: States: no symptoms reported Respiratory: States: short of breath. Denies: cough, wheezing Cardiology: Denies: chest pain, edema, palpitations Gastrointestinal/Abdominal: States: no symptoms reported Genitourinary: States: no symptoms reported Musculoskeletal: States: no symptoms reported Skin: States: no symptoms reported Neurological: States: no symptoms reported Endocrine: States: no symptoms reported Hematologic/Lymphatic: States: no symptoms reported All other Systems: Reviewed and Negative Past Medical History (General) - Patient Medical History Hx Seizures: No Hx Stroke: No Hx Dementia: No Hx Asthma: No Hx of COPD: No Hx Cardiac Disorders: No Hx Congestive Heart Failure: No Hx Pacemaker: No Hx Hypertension: Yes Hx Thyroid Disease: No Hx Diabetes: Yes Hx Gastroesophageal Reflux: Yes Hx Renal Disease: No Hx Cancer: Yes - melanoma Hx of HIV: No Hx Hepatitis C: No Hx MRSA: No MRSA Source:: POST SRUG - Vaccination History Hx Tetanus, Diphtheria Vaccination: No Hx Influenza Vaccination: Yes - 2019 Hx Pneumococcal Vaccination: Yes - 2019 - Social History Hx Tobacco Use: Yes Hx Chewing Tobacco Use: No Hx Alcohol Use: Yes Hx Substance Use: No Hx Substance Use Treatment: No Hx Depression: No Hx Physical Abuse: No Hx Emotional Abuse: No Hx Suspected Abuse: No - Female History Patient : No Family Medical History - Family History Mother Family History: Unknown Living Status: Cause of : uterine cancer Hx Cardiac Disease: Yes - dad Hx Family Cancer: Yes - uterine cancer mom Father Family History: Unknown Living Status: Cause of : hardening of arteries Physical Exam - Physical Exam General Appearance: Alert, Comfortable, No apparent distress Eyes, Ears, Nose, Throat Exam: normal ENT inspection Neck: full range of motion, supple Respiratory: lungs clear, normal breath sounds, no respiratory distress, no ac cessory muscle use Cardiovascular/Chest: normal peripheral pulses, regular rate, rhythm, no edema, no murmur Gastrointestinal/Abdominal: non tender, soft, no organomegaly Extremity: normal inspection, no pedal edema Neurologic: alert, oriented x 3 Progress - Progress Progress: 07/15/19 11:10 Patient reassessed, he is sleeping comfortably. States that his breathing has improved. He has mild d-dimer elevation, similar to prior values. He is low risk per Well's criteria, low clinical suspicion. Will not proceed with CTA at this time. 07/15/19 13:39 Patient reassessed, feeling well. Ambulatory around the ED without difficulty. Discussed imaging and labs. Stable for discharge, will follow up with PCP. 07/15/19 13:42 MDM: Patient presents with shortness of breath. There are no ischemic EKG changes, troponin is negative x 2. CXR is clear. Remainder of labs are unremarkable. He improved during ED observation period and was ambulatory without difficulty. Suspect anxiety related, patient reports that this has been an ongoing problem. Will continue outpatient home observation and he will follow up with his PCP. Home care instructions and return indications reviewed. - Results/Orders Results/Orders: 07/15/19 10:11 IV Care:Saline Lock per Protoc QSHIFT Telemetry ONCE Sodium Chloride 0.9% (Flush) [Saline Flush Syringe] 3 ml IV PRN PRN 07/15/19 10:30 EKG STAT 07/16/19 09:00 Pulse Ox Daily Laboratory Results - last 24 hr 07/15/19 07/15/19 07/15/19 10:15 10:15 12:16 WBC 7.6 RBC 4.42 L Hgb 12.0 L Hct 36.5 L MCV 82.4 MCH 27.1 MCHC 32.8 L RDW 15.0 H Plt Count 270 MPV 7.8 Absolute Neuts (auto) 4.30 Absolute Lymphs (auto) 2.30 Absolute Monos (auto) 0.60 Absolute Eos (auto) 0.40 Absolute Basos (auto) 0.10 Neutrophils % 56.5 Lymphocytes % 29.8 Monocytes % 7.6 Eosinophils % 5.4 H Basophils % 0.7 PT 9.1 INR 0.91 PTT (SP) 23.8 D-Dimer, Quantitative 0.77 H* Sodium 134 L Potassium 3.7 Chloride 100 L Carbon Dioxide 24 Anion Gap 13.7 BUN 13 Creatinine 0.98 BUN/Creatinine Ratio 13.3 Random Glucose 199 H Serum Osmolality 273.9 L Calcium 9.1 Magnesium 1.9 Creatine Kinase 175 H 155 CK-MB (CK-2) 7.5 H* 6.7 H* CK-MB (CK-2) % 4.29 H 4.32 H Troponin I < 0.02 < 0.02 B-Natriuretic Peptide 83.0 - EKG/XRAY/CT Xray Comments: No acute disease Departure - Departure Clinical Impression: Shortness of breath Time of Disposition: 13:41 Disposition: Discharge to Home or Self Care Condition: Fair Departure Forms: ED Discharge - Pt. Copy, Patient Portal Self Enrollment Instructions: Shortness of Breath (Dyspnea) (DC) Diet: resume usual diet Activity: increase activity as tolerated Referrals: Santi Beasley MD [Primary Care Provider] - 1-2 Weeks Home Medications: Ambulatory Orders Finasteride 5 mg PO DAILY 01/21/14 Gabapentin [Neurontin] 1,200 mg PO TID 01/21/14 Simvastatin [Zocor] 40 mg PO BEDTIME 01/21/14 Tamsulosin HCl 0.4 mg PO BEDTIME 01/21/14 Cetirizine HCl [All Day Allergy] 10 mg PO BEDTIME 05/18/17 Potassium Chloride [Potassium Chloride ER] 10 meq PO DAILY 05/18/17 Aspirin [Aspirin EC Low Dose] 81 mg PO BEDTIME 04/07/18 Cyanocobalamin [B-12] 1,000 mcg PO NOON 04/11/19 Docusate Sodium [Colace Cap] 100 mg PO BEDTIME 04/11/19 Linaclotide [Linzess] 290 mcg PO DAILY 04/11/19 Promethazine Tab [Phenergan Tablet] 25 mg PO QID PRN 04/11/19 Acetaminophen [Tylenol] 500 mg PO Q6HR PRN 07/15/19 Alogliptin Benzoate [Alogliptin] 25 mg PO DAILY 07/15/19 Glipizide [Glipizide Xl] 2.5 mg PO BID 07/15/19 Metformin HCl [Glucophage] 1,000 mg PO BID 07/15/19 Metoprolol Tartrate 12.5 mg PO BID 07/15/19 diphenhydrAMINE HCL [Benadryl] 25 mg PO Q6HR PRN 07/15/19
--- NOTE | 2019-07-15 10:45 | RAD ---
EXAM DESCRIPTION: Chest,1 View CLINICAL HISTORY: 74 years Male, shortness of breath COMPARISON: 05/15/2019 TECHNIQUE: AP portable chest. FINDINGS: Mild left basilar subsegmental atelectasis. The lungs are otherwise clear. No focal consolidation, significant pneumothorax or pleural effusion seen. The heart is normal in size. No acute osseous abnormality. IMPRESSION: No acute cardiopulmonary process. Electronically signed by: Deonte Hernandez DO 07/15/2019 10:44 AM [facility]
[2019-07-15 14:01] VITALS: BP 126/41; TEMP 97.6; O2SAT 97
== END 2019-07-15 13:48 | disposition home or self-care (01) ==
LOC: ER 09:58
DX: R06.02 Shortness of breath (principal); F41.9 Anxiety disorder, unspecified; I10 Essential (primary) hypertension; E11.9 Type 2 diabetes mellitus without complications; K21.9 Gastro-esophageal reflux disease without esophagitis; Z85.820 Personal history of malignant melanoma of skin; Z87.891 Personal history of nicotine dependence; Z79.82 Long term (current) use of aspirin; Z79.899 Other long term (current) drug therapy; Z79.84 Long term (current) use of oral hypoglycemic drugs; Z88.6 Allergy status to analgesic agent; Z88.1 Allergy status to other antibiotic agents

== ENCOUNTER → 2019-07-16 | Outpatient (CLI) | payer OTHER ==
--- NOTE | 2019-07-16 12:22 | CT ---
Study: CT of the Right Shoulder. Indication: NONUNION OF FRACTURE Technique: Axial CT of the right shoulder was performed without contrast. Coronal and sagittal reformats performed. This exam was performed according to our departmental dose-optimization program, which includes automated exposure control, adjustment of the mA and/or kV according to patient size and/or use of iterative reconstruction technique. Comparison: Rib radiographs June 12, 2019. Findings: Severe hypertrophic AC joint osteoarthritis with contouring of the underlying supraspinatus muscle belly. Type I acromion with moderate lateral downsloping as well as undersurface spurring at its lateral margin. Significant calcium deposition within the anterior supraspinatus tendon insertion. MRI or CT arthrography could better evaluate the rotator cuff tendons. Mild atrophy and grade 1 fatty impression rotator cuff musculature. Calcium deposition of the long head biceps tendon noted as well. Severe glenohumeral joint osteoarthritis. Complete joint space loss. Pronounced cortical remodeling of both articular surfaces and most pronounced at the glenoid. Multifocal subchondral sclerosis and mild cystic change. Moderate inferior osteophytes. Several tiny ossified loose bodies. Significant cystic change posterior greater tuberosity. No acute or chronic fracture of the proximal right humerus. Impression: No acute or chronic fracture of the proximal right humerus. Severe glenohumeral joint osteoarthritis. Severe AC joint osteoarthritis. Additional findings as above. Electronically signed by: Rashaun Pittman MD 07/16/2019 12:20 PM [facility]
== END ==
LOC: CT 09:44
PROVIDERS: ATTEND Family Medicine
DX: T14.8XXA Other injury of unspecified body region, initial encounter (principal); M19.011 Primary osteoarthritis, right shoulder

== ENCOUNTER → 2019-08-28 | Outpatient (CLI) | payer OTHER | LOC: LAB.O 15:59 | PROVIDERS: ATTEND Family Medicine | DX: R10.9 Unspecified abdominal pain (principal) ==

== ENCOUNTER → 2019-09-02 | Outpatient (CLI) | payer OTHER | LOC: YCFC.O 11:33 | PROVIDERS: ATTEND Family Medicine | DX: R42 Dizziness and giddiness (principal); N39.0 Urinary tract infection, site not specified ==

== ENCOUNTER → 2019-09-25 | Outpatient (CLI) | payer OTHER ==
--- NOTE | 2019-09-26 15:54 | CT ---
EXAM DESCRIPTION: Lumbar Spine: Computed Tomography. CLINICAL HISTORY: 74 years Male LOW BACK PN. Patient has spinal cord stimulator right buttock area. COMPARISON: MRI lumbar spine July 2018. TECHNIQUE: Spiral, axial 2.5 x 2.5 mm scans through the cervical spine without contrast. Coronal and sagittal 2.0 mm Reconstructions. Total Exam DLP: 611 mGy-cm. This exam was performed according to our departmental dose-optimization program which includes automated exposure control, adjustment of the mA and/or kV according to patient size and/or use of iterative reconstruction technique; to reduce radiation dose to as low as reasonably achievable (ALARA). FINDINGS: L5-S1: Significant disc space loss with disc desiccation and vacuum gas in the disc space. Sclerosis and endplate changes superior and inferior with anterior marginal spurs. Posterior disc bulge 6 mm from the inferior L5 endplate. Grade 1 anterolisthesis 3.5 mm. Bilateral moderate foraminal narrowing. Bilateral facet joint arthrosis. AP canal is patent. Bilateral L5 pars spondylolysis. L4-L5: Disc space preserved. Posterior disc bulge containing calcifications. Approximately 4 mm. Degenerative hypertrophy of the canal elements with AP canal diameter 10 mm. Bilateral foraminal stenosis. L3-L4: Anterior endplate ridging. Calcification in the anterior and posterior disc margin. Degenerative hypertrophy of the canal elements. 2 mm disc bulge. AP canal diameter 7 mm. Bilateral moderate foraminal narrowing. L2-L3: Disc space narrowing anterior bulging and endplate ridging. Disc desiccation with vacuum gas in the disc space. Posterior disc space narrowing and Trace retrolisthesis with 3 mm disc bulge. AP canal diameter 8 mm moderate to severe right foraminal narrowing and left foraminal stenosis. L1-L2: Anterior endplate ridging and spur overlying the disc space. Posterior tiny disc bulge and endplate spurs. 3 mm disc bulge. Hypertrophic degeneration of the canal elements. AP canal diameter 10 mm. Moderate left foraminal narrowing and mild to moderate right foraminal narrowing. Electrode wire enters the posterior canal at this level. T12-L1: Posterior disc space loss anterior disc bulge with endplate ridging. No significant bulge posterior. Bilateral foramina are patent. Minimal degenerative hypertrophy of the posterior elements. No canal narrowing No compression type vertebral body fractures at any level. No significant scoliosis. IMPRESSION: 1. Multiple levels of disc space loss, disc space spondylosis, degenerative hypertrophy of the flavum ligaments and facet joints, and disc bulging. 2. Spondylosis at L5-S1 diffusely with posterior disc bulge. Grade 1 anterolisthesis. Bilateral L5 pars spondylolysis. Bilateral foraminal narrowing. 3. Posterior L4-L5 disc bulge and multifactorial borderline mild central canal stenosis. Also bilateral foraminal stenosis. Correlate for bilateral L4 nerve compromise. 4. Multifactorial moderate central canal stenosis at L3-L4 and bilateral moderate foraminal narrowing. 5. L2-L3 multifactorial mild to moderate central canal stenosis. Severe right foraminal narrowing and left foraminal stenosis. Trace retrolisthesis. Correlate for left L2 nerve compromise. 6. Borderline mild central canal stenosis L1-L2 is multifactorial. Moderate left foraminal narrowing. Electronically signed by: Taurus Duval MD 09/26/2019 3:53 PM CDT
== END ==
LOC: CT 14:45
PROVIDERS: ATTEND Family Medicine
DX: M47.896 Other spondylosis, lumbar region (principal); M51.86 Other intervertebral disc disorders, lumbar region; M48.061 Spinal stenosis, lumbar region without neurogenic claudication; M43.16 Spondylolisthesis, lumbar region; M46.96 Unspecified inflammatory spondylopathy, lumbar region; M47.897 Other spondylosis, lumbosacral region; M51.87 Other intervertebral disc disorders, lumbosacral region; M24.28 Disorder of ligament, vertebrae

== ENCOUNTER → 2019-10-29 | Outpatient (CLI) | payer OTHER | LOC: YCFC.O 12:41 | PROVIDERS: ATTEND Family Medicine | DX: R53.83 Other fatigue (principal); R30.9 Painful micturition, unspecified ==

== ENCOUNTER → 2019-10-30 | Outpatient (CLI) | payer OTHER | LOC: NC 10:55 | PROVIDERS: ATTEND Family Medicine | DX: R30.0 Dysuria (principal) ==

== ENCOUNTER → 2019-12-12 | Outpatient (CLI) | payer OTHER, MEDICARE | LOC: NC 10:18 | PROVIDERS: ATTEND Family Medicine | DX: R30.0 Dysuria (principal) ==

== ENCOUNTER → 2020-01-15 | Outpatient (CLI) | payer OTHER, MEDICARE | LOC: YCFC.O 12:09 | PROVIDERS: ATTEND Family Medicine | DX: N39.0 Urinary tract infection, site not specified (principal) ==

== ENCOUNTER → 2020-01-20 | Outpatient (CLI) | payer OTHER, MEDICARE ==
--- NOTE | 2020-01-20 15:45 | US ---
EXAM DESCRIPTION: Renal: Ultrasound. CLINICAL HISTORY: 75 years Male KIDNEY DISORDER COMPARISON: None TECHNIQUE: Transcutaneous scanning: Two-dimensional and Doppler modes. FINDINGS: Right kidney measures 11.6 x 6.3 x 5.8 cm; volume 218.6 mL. ml. Mid-renal cortical thickness normal and normal cortical .echogenicity. Circumscribed anechoic cyst in the upper cortex measuring 1.4 x 1.43 cm. No hydronephrosis No echogenic stones. Minimally lobulated contour of the kidney with no perinephric fluid. Normal vascularity. Proximal ureter not seen. Left kidney measures 10.1 x 6.3 x 6.1 cm; volume 206 ml. Mid-renal cortical thickness 12 mm with minimally increased cortical. echogenicity. 12 x 13 mm and 10 x 9 mm cortical cysts. No hydronephrosis. No echogenic stones. Minimally lobulated contour of the kidney with no perinephric fluid. Normal vascularity.. Proximal ureter not seen.. Urinary bladder was visualized. Prevoid volume 46.8 mL. Ureteral jet in the bladder not seen by Doppler in the urinary bladder. Patient unable to void. Abdominal aorta: 1.3 cm proximal caliber, 1.7 cm mid aorta and 2.2 cm distally. IMPRESSION: 1. Bilateral renal cysts. Bilateral lobulated renal capsule. Increased cortical echogenicity and decreased cortical thickness left kidney. No echogenic stones or hydronephrosis bilaterally. Ureters not visualized. 2. Minimal distention of the urinary bladder. Atherosclerosis of the abdominal aorta. Electronically signed by: Taurus Duval MD 01/20/2020 3:43 PM CDT
== END ==
LOC: US 08:31
PROVIDERS: ATTEND Family Medicine
DX: N28.89 Other specified disorders of kidney and ureter (principal); N28.1 Cyst of kidney, acquired; N32.9 Bladder disorder, unspecified; I70.0 Atherosclerosis of aorta

== ENCOUNTER → 2020-03-10 | Outpatient (CLI) | payer OTHER, MEDICARE | END | disposition home or self-care (01) | LOC: LAB.NP 10:46 → NC 10:46 | PROVIDERS: ATTEND Family Medicine | DX: R30.0 Dysuria (principal) ==

== ENCOUNTER → 2020-03-17 | Outpatient (CLI) | payer OTHER, MEDICARE | LOC: YCFC.O 08:21 | PROVIDERS: ATTEND Family Medicine | DX: N40.1 Benign prostatic hyperplasia with lower urinary tract symptoms (principal); E11.9 Type 2 diabetes mellitus without complications; E78.5 Hyperlipidemia, unspecified; I10 Essential (primary) hypertension; R53.83 Other fatigue ==

== ENCOUNTER → 2020-04-20 | Outpatient (CLI) | payer OTHER, MEDICARE | LOC: LAB.O 10:12 | PROVIDERS: ATTEND Family Medicine | DX: D64.9 Anemia, unspecified (principal) ==

== ENCOUNTER → 2020-06-05 | Outpatient (CLI) | payer OTHER | LOC: YCFC.O 14:02 | PROVIDERS: ATTEND Family Medicine | DX: N39.0 Urinary tract infection, site not specified (principal) ==

== ENCOUNTER → 2020-08-14 | Outpatient (CLI) | payer OTHER, MEDICARE | LOC: YCFC.O 16:45 | PROVIDERS: ATTEND Nurse Practitioner Family | DX: R82.998 Other abnormal findings in urine (principal) ==

== ENCOUNTER → 2020-09-09 | Outpatient (CLI) | payer OTHER, MEDICARE ==
--- NOTE | 2020-09-09 17:41 | RAD ---
EXAM DESCRIPTION: Chest,2 Views CLINICAL HISTORY: 75 years Male CHEST PAIN COMPARISON: September 14, 2019 TECHNIQUE: AP view of the chest was obtained. FINDINGS: Cardiac size is within normal limits. Central vessels are not increased. No infiltrates or effusions seen. Chronic changes lower lungs bilaterally. No consolidation. No pneumothorax. IMPRESSION: No active disease. Electronically signed by: Ashlee Anderson MD 09/09/2020 5:40 PM [facility]
== END ==
LOC: YCFC.O 16:45
PROVIDERS: ATTEND Family Medicine
DX: I20.9 Angina pectoris, unspecified (principal); R07.9 Chest pain, unspecified